=== PATIENT | female | born 1960 | race Caucasian/White ===

== ENCOUNTER 2020-12-30 02:16 | Observation (INO) | payer MEDICAID, SELFPAY ==
[2020-12-30] VITALS (27 sets, daily range): BP systolic 85–142; BP diastolic 41–87; PULSE 64–103; RESP 14–26; TEMP 36.3–36.9; O2SAT 88–100; BMI 26.2; BMI 25.5; BMI 25.6
--- NOTE | 2020-12-30 02:28 | EKG12_ITS ---
Test Reason : SOB Blood Pressure : / mmHG Vent. Rate : 074 BPM Atrial Rate : 074 BPM P-R Int : 170 ms QRS Dur : 080 ms QT Int : 396 ms P-R-T Axes : 072 066 061 degrees QTc Int : 439 ms Normal sinus rhythm Normal ECG Confirmed by DAQUAN SCHOFIELD, [place] ([id number]), editorial assistant VICTOR HUGO BAILEY ([id number]) on 12/30/2020 1:17:01 PM Referred By: DEENA Confirmed By:LA BUTT MD
--- NOTE | 2020-12-30 02:30 | ED.VIS.FLU ---
History of Present Illness Chief Complaint: Shortness of Breath Informant: Patient, EMS Known exposure: No Onset: Days Context: Gradual Onset Quality: Wheezing Associated Symptoms: Clear sputum, Cough Chest Pain: Pleuritic, Pressure, Tightness Narrative: Patient is a 60-year-old female with history of tobacco use presenting with worsening shortness of breath and cough. Patient was 88% on room air per EMS. She was placed on 2 L of oxygen and does feel slightly better. She states she started feeling bad on Wednesday, 2 days ago but then had significant worsening of her symptoms yesterday. She states she has cough, chest tightness and wheezing. She is had production of clear sputum. She denies any fever or chills. She has associated diarrhea. She denies any black or blood in her stool. No associated nausea or vomiting. No abdominal pain. She notes her chest pain is also worse in the front of her chest when she coughs. She denies any radiation of the pain. No reported rash or skin changes. No urinary symptoms but states she has chronic frequency of urination. Patient denies any known history of COPD or asthma. She denies any sick contacts or known exposure to coronavirus. No other complaints at this time. Past Medical History - Allergies and Home Meds Allergies/Adverse Reactions: Allergies No Known Allergies Allergy (Verified 12/30/20 02:20) Past Medical History: - - Hypothyroid Surgical History: noncontributory Smoking Status: Current every day smoker Review of Systems General: Reports: Malaise. Denies: Chills, Fever, Sweats Cardiovascular: Reports: Chest pain. Denies: Palpitations Respiratory: Reports: Dyspnea, Cough, Sputum. Denies: Dyspnea on exertion Gastrointestinal: Reports: Diarrhea. Denies: Abdominal pain, Nausea, Vomiting, Melena, Hematochezia Genitourinary: Denies: Dysuria, Hematuria, Frequency Skin: Denies: Rash Neurological: Denies: Headache, Weakness, Numbness Physical Exam Vital Signs/Narrative: Vital Signs Temp Pulse Resp BP Pulse Ox 12/30/20 02:20 98.1 F 86 23 H 129/87 H 97 12/30/20 02:17 97.3 F L 100 21 H 129/87 H 88 Inital Vital Signs reviewed: Yes General: Well nourished, Well developed Head: Normocephalic, Atraumatic Eyes: Perrl, EOMI ENT: Dry mucous membranes Neck: Supple, Nontender, No JVD Cardiovascular: Regular rate, Regular rhythm, No murmurs Respiratory: Wheezing, Diminished, Decreased Air Movement, - - Patient is conversational dyspnea and increased work of breathing Abdomen: Soft, Nontender, Nondistended, Normal bowel sounds. Negative for: Guarding, Rebound tenderness Back: Nontender, Normal Inspection Extremities: Nontender, No edema Skin: Normal color, No rash Neurological: Alert, Oriented x3, Cranial nerves II-XII grossly intact, Normal Strength, Normal Sensation Psychological: Normal affect Diagnostic/Tx/Re-eval Chest X-Ray - ED: 1 View, Read by ED Physician, Read by Radiologist, Right Infiltrate, Left Infiltrate Clinical Impression(s) from Imaging Studies Chest X-Ray 12/30/20 02:53 IMPRESSION: Possible bilateral pneumonia. Consider correlation with CT chest. Electronically Signed: Juan Manuel Kuo MD at 3:37 EST , Service support , Laboratory Data 12/30/20 12/30/20 12/30/20 02:00 02:00 02:00 WBC 6.7 RBC 5.25 Hgb 16.8 H Hct 50.3 H MCV 95.8 MCH 32.0 MCHC 33.4 RDW Std Deviation 46.3 H RDW Coeff of Stewart 12.9 Plt Count 234 MPV 10.8 Immature Gran % (Auto) 0.300 Neut % (Auto) 53.3 Lymph % (Auto) 29.4 [place] % (Auto) 8.5 Eos % (Auto) 7.8 H Baso % (Auto) 0.7 Absolute Neuts (auto) 3.6 Absolute Lymphs (auto) 1.97 Nucleated RBC % 0 Sodium 141 Potassium 3.8 Chloride 107 Carbon Dioxide 27.0 Anion Gap 7 BUN 7 Creatinine 0.92 Estim Creat Clear Calc 46.13 Est GFR (MDRD) Af Amer 80 Est GFR (MDRD) Non-Af 66 BUN/Creatinine Ratio 7.6 L Glucose 137 H Lactic Acid Calcium 9.2 Total Bilirubin 0.60 AST 25 ALT 28 Alkaline Phosphatase 100 Troponin I < 0.015 B-Natriuretic Peptide 37.4 Total Protein 8.4 H Albumin 4.4 Globulin 4.0 Albumin/Globulin Ratio 1.1 12/30/20 02:26 WBC RBC Hgb Hct MCV MCH MCHC RDW Std Deviation RDW Coeff of Stewart Plt Count MPV Immature Gran % (Auto) Neut % (Auto) Lymph % (Auto) [place] % (Auto) Eos % (Auto) Baso % (Auto) Absolute Neuts (auto) Absolute Lymphs (auto) Nucleated RBC % Sodium Potassium Chloride Carbon Dioxide Anion Gap BUN Creatinine Estim Creat Clear Calc Est GFR (MDRD) Af Amer Est GFR (MDRD) Non-Af BUN/Creatinine Ratio Glucose Lactic Acid 1.3 Calcium Total Bilirubin AST ALT Alkaline Phosphatase Troponin I B-Natriuretic Peptide Total Protein Albumin Globulin Albumin/Globulin Ratio - Rhythm Strip Rhythm Strip: Sinus Rhythm Rate: 74 Ectopy: None - EKG Initial EKG Interpretation: Sinus Rhythm, - - Normal sinus rhythm at a rate of 74 Normal axis Normal intervals Normal ST segments Fluid Bolus: NS Re-Evaluation and Other Treatments: Patient evaluated for worsening shortness of breath and wheezing. She has had symptoms for the past 2 to 3 days also has associated diarrhea. I have a high suspicion for Covid pneumonia versus COPD exacerbation. Patient is given albuterol inhaler, 6 puffs, have improvement of her symptoms. She started on Decadron. Chest x-ray shows multifocal pneumonia. I suspect this is a viral pneumonia. Her Covid antigen is negative however I do have a high suspicion and did order a PCR Covid test as well as a respiratory PCR panel. We will hold antibiotics at this time especially as patient is afebrile and does not have a leukocytosis. Patient was 88% on room air for EMS and is requiring supplemental oxygen. She will require admission. She is agreeable with this plan. Remainder of work-up is largely unremarkable. On reevaluation she is still wheezing slightly but states she does feel better. Clinically her breath sounds have improved. ED Disposition - Plan for ED Patient: Disposition: Acute Care Hospital [facility] Diagnosis: Viral pneumonia, Acute respiratory failure with hypoxia, Wheezing
[2020-12-30] MEDS: 0.9% Normal Saline 1,000 ML 150 ML IV (02:35)
[2020-12-30 02:38] LABS: Absolute Lymphocyte Count 1.97 X10^3/uL (0.83-4.51); Absolute Neutrophil Count 3.6 X10^3/uL (2.0-7.7); Basophil# 0.05 X10^3/uL; Basophil% 0.7 % (0-1); Eosinophil# 0.52 X10^3/uL; Eosinophils% 7.8 % (0-5); Hematocrit 50.3 % (37-47); Hemoglobin 16.8 g/dL (12.0-15.0); Lymphocyte # 1.97 X10^3/ul (4.0); Lymphocyte % 29.4 % (19-41); Mean Corp Hgb Conc 33.4 g/dL (32-36); Mean Corpuscular Volume 95.8 fL (81-99); Mean Platelet Vol. 10.8 fl (6.2-12.0); Monocyte# 0.57 X10^3/uL; Monocyte% 8.5 % (0-10); NRBC Flagged by Analyzer 0 % (0-5); Neutrophil # 3.57 X10^3/uL (2.7-7.7); Neutrophil % 53.3 % (47-70); Platelet Count 234 K/mm3 (150-450); RBC Distribution Width CV 12.9 % (11.6-14.6); RBC Distribution Width SD 46.3 fl (35.1-43.9); Red Blood Count 5.25 M/mm3 (4.2-5.4); White Blood Count 6.7 K/mm3 (4.4-11.0)
[2020-12-30 02:52] LABS: ALB/GLOB Ratio 1.1 RATIO (0.9-2.4); AST(SGOT) 25 U/L (15-37); Alanine Aminotransfer ALT/SGPT 28 U/L (13-56); Albumin, Serum 4.4 g/dL (3.2-5.0); Alkaline Phosphatase 100 U/L (45-117); Anion Gap 7 (5-15); BUN 7 mg/dL (7-18); BUN/Creat Ratio 7.6 RATIO (10-20); Calcium,Total 9.2 mg/dL (8.5-10.1); Chloride 107 mmol/L (98-107); Creatinine, Serum 0.92 mg/dL (0.55-1.02); EST Glomerular Filtration Rate 66 mL/min (>60); Est Glom Filt Rate - Afr Amer 80 mL/min (>60); Estimated Creatinine Clearance 46.13 ml/min; Glucose 137 mg/dL (74-106); Potassium 3.8 mmol/L (3.5-5.1); Protein, Total 8.4 g/dL (6.4-8.2); Sodium Level 141 mmol/L (136-145)
--- NOTE | 2020-12-30 02:53 | RAD_ITS ---
STUDY: X-RAY CHEST REASON FOR EXAM: Female, 60 years old. Increased shortness of breath. TECHNIQUE: AP portable chest. COMPARISON: None. FINDINGS: Subtle patchy bilateral airspace opacities. No effusions. No pneumothorax. Normal size heart. Normal mediastinum and chacorta. Normal visualized pulmonary arteries. Normal visualized aortic arch and descending thoracic aorta. Normal visualized thoracic spine. Normal visualized ribs, clavicles, and shoulders. There is no demonstrated abnormality of the visualized soft tissue structures of the upper abdomen. RAD/Chest 1 View (Portable) IMPRESSION: Possible bilateral pneumonia. Consider correlation with CT chest. Electronically Signed: Juan Manuel Kuo MD at 3:37 EST , Service support ,
[2020-12-30 02:55] LABS: BNP,B-Type NATRIURETIC PEPTIDE 37.4 pg/mL (0-100)
[2020-12-30 03:08] LABS: Lactic Acid 1.3 mmol/L (0.4-1.9)
--- NOTE | 2020-12-30 03:40 | PCM.HP.STD ---
History of Present Illness Date of Admission: 12/30/20 Chief Complaint: Dyspnea, cough. Admission diagnoses: 1. Acute Hypoxia secondary to Acute Bilateral Pneumonia secondary to Suspected Acute Viral Syndrome, COVID-19 2. Possible underlying chronic COPD 3. Tobacco Abuse 4. Hypothyroidism The patient is a 60 y/o F w/ PMHx: Hypothyroidism, Tobacco use who presents to the [facility] ED on 12/30/20 with history of onset of fatigue, malaise this prior Wednesday with significantly worsening symptoms over the last 24 hours with cough, dyspnea, chest tightness with wheezing, wheezing with no specific associated fevers or chills but noted nausea without emesis as well as diarrhea with abdominal cramping in addition to pleuritic chest discomfort, worse with coughing prompting eventual ED presentation. Patient notes that she lives with roommate but he has been reportedly well with no symptoms. Work-up in the ED included T 97.3, heart rate 100, BP 129/87, respiratory rate 23, 88% on room air initially with improvement to 97% on 3 L nasal cannula, CBC with WBC 6.7, hemoglobin 16.8, platelet 234 without marked shift, CMP with glucose 137 otherwise unremarkable, troponin less than 0.015, lactic acid 1.3, BNP 37.4, blood culture x2 pending per ED, Covid rapid antigen negative, EKG with sinus rhythm with no acute evidence of ischemia, chest x-ray concerning for bilateral pneumonia. In the ED patient administered normal saline and albuterol inhaler. Given presentation and history ED physician did order COVID-19 PCR testing as well given concern for Covid but Covid rapid antigen negative. Respiratory viral panel pending per ED physician. Past Medical History Allergies No Known Allergies Allergy (Verified 12/30/20 02:20) Home Medications: Ambulatory Orders Medication Instructions Recorded Levothyroxine [Synthroid] 137 mcg PO DAILY 12/30/20 Surgical History: - - x1, resection of cervical cancer. 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 Tobacco Use: Cigarettes Alcohol: Occasional - Patient reports drinking 1-2 small beers daily. Drugs: None - *Family History Maternal History Items: Cancer - Patient has a paternal family history of lung cancer with concurrent tobacco use. Paternal History Items: Unknown - Patient does not know any of her paternal family history. Review of Systems Constitutional: Reports: Anorexia, Malaise, Weakness, Fatigue. Denies: Chills, Fever, Weight Change HEENT: Denies: Head Aches, Sinus Congestion, Sinus Drainage Cardiovascular: Denies: Chest Pain, Palpitations Respiratory: Reports: Cough, Pleuritic Pain, Shortness of Breath, Shortness of breath at rest, Shortness of breath upon exertion, Wheezing. Denies: Sputum production Gastrointestinal: Reports: Abdominal Pain, Diarrhea, Nausea. Denies: Vomiting Genitourinary: Denies: Dysuria Musculoskeletal: Reports: Joint Pain, Muscle pain. Denies: Joint Tenderness Skin: Denies: Rash, Wounds Neurological: Denies: Numbness, Tingling, Focal weakness Psychiatric: Denies: Anxiety, Depression, Homicidal Ideations, Suicidal Ideations Hematologic/ Lymphatic: Denies: Easy Bruising, Easy Bleeding VTE Information - Inpt Only VTE Present on Admission: No VTE Mechan Device Prophylaxis: SCD's VTE Pharm Prophylaxis ordered?: Yes Subjective: Patient seated upright in the ED bed, fatigued and ill-appearing, anxious. Objective: Physical Examination: General: awake, alert, oriented x 3 and cooperative, seated upright in the ED bed, fatigued, ill-appearing, anxious. Skin: normal color, turgor, no icterus, cyanosis. HEENT: AT/NC, EOMI, PERRLA, dry MM, no carotid bruits or JVD noted. Lungs: Diminished breath sounds, greater bases, moderate effort, no accessory muscle usage noted currently but significant expiratory wheezing, no obvious rhonchi or rales. Heart: Tachycardic with regular rhythm; no gallop, rub audible. Abdomen: soft, NTTP, ND, normal BS, no HSM. Extremities: no cyanosis, clubbing, or edema. Neurological: patient awake, alert, oriented as noted; cognitive function intact; pupils equally reactive to light and accomodation; cranial nerves II-XII grossly normal, moving all 4 extremities, no focal deficits, strength severely global decrease secondary to acute presentation. Psychiatric: affect appears fatigued, ill-appearing, anxious, no acute evidence of depressive feelings. - Physical Exam Vitals/I&O's: Vital Signs Temp Pulse Resp BP Pulse Ox 98.1 F 78 26 H 129/87 H 97 12/30/20 02:20 12/30/20 02:48 12/30/20 02:48 12/30/20 02:20 12/30/20 02:20 Oxygen Flow Rate (L/min) 3 Oxygen Delivery Method Nasal Cannula Weight: 134 lb 0.657 oz Body Mass Index (BMI) 26.2 Microbiology Past 72 Hours 12/30/20 02:31 Mucosa - Nose SARS-CoV-2 Antigen (Rapid) - Final Laboratory Results 12/30/20 02:00: WBC 6.7, RBC 5.25, Hgb 16.8 H, Hct 50.3 H, MCV 95.8, MCH 32.0, MCHC 33.4, RDW Std Deviation 46.3 H, RDW Coeff of Stewart 12.9, Plt Count 234, MPV 10.8, Immature Gran % (Auto) 0.300, Neut % (Auto) 53.3, Lymph % (Auto) 29.4, [place] % (Auto) 8.5, Eos % (Auto) 7.8 H, Baso % (Auto) 0.7, Absolute Neuts (auto) 3.6, Absolute Lymphs (auto) 1.97, Nucleated RBC % 0 12/30/20 02:00: Sodium 141, Potassium 3.8, Chloride 107, Carbon Dioxide 27.0, Anion Gap 7, BUN 7, Creatinine 0.92, Estim Creat Clear Calc 46.13, Est GFR (MDRD) Af Amer 80, Est GFR (MDRD) Non-Af 66, BUN/Creatinine Ratio 7.6 L, Glucose 137 H, Calcium 9.2, Total Bilirubin 0.60, AST 25, ALT 28, Alkaline Phosphatase 100, Troponin I < 0.015, Total Protein 8.4 H, Albumin 4.4, Globulin 4.0, Albumin/Globulin Ratio 1.1 12/30/20 02:00: B-Natriuretic Peptide 37.4 12/30/20 02:26: Lactic Acid 1.3 12/30/20 03:25: COVID-19 (SHARON) Pending Current Medications Sodium Chloride () 1,000 mls @ 150 mls/hr IV .[id number] ONE Stop: 12/30/20 09:07 Last Admin: 12/30/20 02:35 Dose: 150 mls/hr Documented by: Assessment/Plan The patient is a 60 y/o F w/ PMHx: Hypothyroidism, Tobacco use who presents to the [facility] ED on 12/30/20 with history of onset of fatigue, malaise this prior Wednesday with significantly worsening symptoms over the last 24 hours with cough, dyspnea, chest tightness with wheezing, wheezing with no specific associated fevers or chills but noted diarrhea with no nausea or emesis with pleuritic chest discomfort, worse with coughing prompting eventual ED presentation. 1. Acute Hypoxia secondary to Acute Bilateral Pneumonia secondary to Suspected Acute Viral Syndrome, COVID-19: Will admit to the COVID unit, COVID PCR pending with negative antigen but CXR concerning, will maintain on oxygen with wean as tolerated to room air, PRN albuterol, HOB, IS parameters w/ pending sputum cultures, respiratory viral panel and urine antigens, will obtain D-dimer, procalcitonin, CRP, CPK, Ferritin, LDH, trop and BNP, continue supportive care including q 2 hour turning including prone given no prone bed availability and judicious hydration, closely monitor for worsening status for ARDS and multiorgan failure, will consult Infectious disease, will initiate and continue IV decadron x 10 doses, given presentation will also initiate IV remdesivir but defer to discretion of Infectious disease. Given significant wheezing and likely underlying chronic lung disease which is complicating presentation will request also pulmonary, Dr. Ruby. 2. Possible underlying chronic COPD: We will encourage head of bed, I-S, as needed albuterol inhaler, initiate Advair. 3. Tobacco Abuse: Encouraged cessation, inpatient consultation per RT, NR if desired. 4. Hypothyroidism: Continue home synthroid regimen. 5. DVT prophylaxis: SCDs, Lovenox. 6. CODE status: Patient does not have healthcare power of deposit refund clerk nor living will set up. Noted that she may discuss these items with case management/social work if she is interested in having information while here. Given her possible Covid status, discussed CODE status at length including difference between FULL code, DNR-CCA and DNR-CC status. Following discussions about the differences in these status, requested Full Code status. Advanced Care Planning Face to Face Time: 16 minutes. Inpatient E&M: 93067 Init Hosp L3 Procedures: 49001 Advncd Care Plan 30 Min
[2020-12-30] MEDS: dexAMETHasone 4 MG Tablet 6 MG PO (03:52)
[2020-12-30] MEDS: 0.9% Normal Saline 1,000 ML 100 ML IV (05:52)
[2020-12-30 06:25] LABS: Absolute Lymphocyte Count 0.39 X10^3/uL (0.83-4.51); Absolute Neutrophil Count 5.4 X10^3/uL (2.0-7.7); Basophil# 0.03 X10^3/uL; Basophil% 0.5 % (0-1); Eosinophil# 0.02 X10^3/uL; Eosinophils% 0.3 % (0-5); Hematocrit 42.1 % (37-47); Hemoglobin 14.2 g/dL (12.0-15.0); Lymphocyte # 0.39 X10^3/ul (4.0); Lymphocyte % 6.5 % (19-41); Mean Corp Hgb Conc 33.7 g/dL (32-36); Mean Corpuscular Hgb 32.2 pg (27.0-32.0); Mean Corpuscular Volume 95.5 fL (81-99); Mean Platelet Vol. 10.9 fl (6.2-12.0); Monocyte# 0.21 X10^3/uL; Monocyte% 3.5 % (0-10); NRBC Flagged by Analyzer 0 % (0-5); Neutrophil # 5.36 X10^3/uL (2.7-7.7); Neutrophil % 88.9 % (47-70); POSITIVE DIFFERENTIAL YES; Platelet Count 200 K/mm3 (150-450); RBC Distribution Width CV 12.8 % (11.6-14.6); RBC Distribution Width SD 45.4 fl (35.1-43.9); Red Blood Count 4.41 M/mm3 (4.2-5.4)
[2020-12-30 06:26] LABS: Differential Indicated SCAN CRITERIA MET
--- NOTE | 2020-12-30 07:07 | PCM.CONS.PUL ---
Problem List (1) Viral pneumonia Status: Acute (2) Acute respiratory failure with hypoxia Status: Acute (3) Wheezing Status: Acute Reason for Consult Date of Consultation: 12/30/20 Reason for Consultation: Hypoxia History of Present Illness: The patient is a 60 year old F, with unclear past medical history, who presented [facility] on 12/30/2020 secondary to cough and shortness of breath. Patient reportedly had progressive symptoms over the last 2 to 3 days. Patient stated that she had a cough and worsening shortness of breath. Patient had reported production of clear sputum, but denied any fevers or chills. Patient had reported some diarrhea, but no melena or hematochezia. No associated nausea or vomiting was reported. Patient states that she does have a pleuritic type chest pain, especially with coughing. There is no radiation noted. On calling EMS, patient was reportedly 88% on room air, but had denied any sick contacts or known exposure to coronavirus. On presentation to the ER, patient was noted to be 88% on room air and 97% on 3 L. Patient was tachypneic at 23 breaths/min, but afebrile. Chest x-ray had shown bilateral infiltrates and laboratory work-up showed a hemoglobin of 16.8 without leukocytosis or thrombocytopenia. Chemistries were relatively unremarkable. BNP was normal at 37.4. Lactate was within normal limits and EKG showed no ST segment changes. Given concern for possible Covid, patient was admitted to the cohort unit for a PCR and viral panel. Patient eventually became positive for rhinovirus and negative for COVID-19. On further questioning, patient is a very poor historian. Patient states she has no medical problems, but reportedly is on Synthroid at home. Patient also has an extensive 40+ pack year smoking history. 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 Patient has not required an inhaler previously. Patient denies any hospitalization with similar type presentation. Patient does not check her oxygen saturations at baseline. Patient also reports drinking 12-18 beers per week. Patient denies any previous withdrawal symptoms. Patient denied any illicit drugs. 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 No travel is been reported. Patient denies a history of asthma. Patient is unaware of any coronary disease, but readily admits that she does not check with doctors a lot. Review of systems otherwise negative from a constitutional, HEENT, respiratory, cardiovascular, GI, genitourinary, musculoskeletal, skin, neurologic, psychiatric and hematologic system unless stated above. Past Medical History Allergies No Known Allergies Allergy (Verified 12/30/20 02:20) Home Medications: Ambulatory Orders Medication Instructions Recorded Levothyroxine [Synthroid] 137 mcg PO DAILY 12/30/20 Surgical History: - - x1, resection of cervical cancer. 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 Drugs: None - *Family History Maternal History Items: Cancer - Patient has a paternal family history of lung cancer with concurrent tobacco use. Paternal History Items: Unknown - Patient does not know any of her paternal family history. Review of Systems Comment: See HPI. Patient Problems: Active and Suspected Problems Viral pneumonia (Acute) Acute respiratory failure with hypoxia (Acute) Wheezing (Acute) Objective: All imaging was personally reviewed. Chest x-ray shows slight early infiltrates without lobar consolidation. Patient does not have an echocardiogram or chest CT available for review. Patient has never had a pulmonary function test. - Physical Exam Vitals/I&O's: Vital Signs Temp Pulse Resp BP Pulse Ox 36.4 C L 82 20 H 108/54 L 95 12/30/20 04:21 12/30/20 04:21 12/30/20 04:21 12/30/20 04:21 12/30/20 04:21 Oxygen Flow Rate (L/min) 2 Oxygen Delivery Method Nasal Cannula Weight: 59.4 kg Body Mass Index (BMI) 25.5 General: Alert, Oriented x3, Cooperative, - - Mild conversational dyspnea. HEENT: Atraumatic, PERRLA, EOMI, Normocephalic, - - Slight scleral injection without icterus Oral: Moist Mucosa, No Gingival or Mucosal Lesions/ Ulcerations Neck: Supple, No JVD, No Nodes, Trachea Midline Lungs: No rhonchi, No rales, Diminished, Wheezes - Bilateral, - - Symmetric expansion. No dullness to percussion. Cardiovascular: Regular rate, Regular Rhythm, Normal S1, Normal S2, No murmurs, No rub noted, No Gallop Abdomen: Bowel Sounds Present, Soft, Non Tender, Non-Distended, Obese Extremities: No clubbing, No cyanosis, No edema Skin: No rashes, No breakdown Musculoskeletal: No Tenderness to Palpation of Joints or Extremities Lymphatic: No Cervical, Supraclavicular, or Inguinal Adenopathy Neurological: Cranial nerves II-XII grossly intact, Neuro grossly intact, Motor Exam 5/5 strength throughout Psych/Mental Status: Alert and oriented to time, place, person, mood and affect Microbiology Past 72 Hours 12/30/20 03:25 Mucosa - Nose Respiratory Panel (PCR) - Final Rhinovirus 12/30/20 02:31 Mucosa - Nose SARS-CoV-2 Antigen (Rapid) - Final Laboratory Results 12/30/20 02:00: WBC 6.7, RBC 5.25, Hgb 16.8 H, Hct 50.3 H, MCV 95.8, MCH 32.0, MCHC 33.4, RDW Std Deviation 46.3 H, RDW Coeff of Stewart 12.9, Plt Count 234, MPV 10.8, Immature Gran % (Auto) 0.300, Neut % (Auto) 53.3, Lymph % (Auto) 29.4, [place] % (Auto) 8.5, Eos % (Auto) 7.8 H, Baso % (Auto) 0.7, Absolute Neuts (auto) 3.6, Absolute Lymphs (auto) 1.97, Nucleated RBC % 0 12/30/20 02:00: Sodium 141, Potassium 3.8, Chloride 107, Carbon Dioxide 27.0, Anion Gap 7, BUN 7, Creatinine 0.92, Estim Creat Clear Calc 46.13, Est GFR (MDRD) Af Amer 80, Est GFR (MDRD) Non-Af 66, BUN/Creatinine Ratio 7.6 L, Glucose 137 H, Calcium 9.2, Total Bilirubin 0.60, AST 25, ALT 28, Alkaline Phosphatase 100, Troponin I < 0.015, Total Protein 8.4 H, Albumin 4.4, Globulin 4.0, Albumin/Globulin Ratio 1.1 12/30/20 02:00: B-Natriuretic Peptide 37.4 12/30/20 02:26: Lactic Acid 1.3 12/30/20 03:25: COVID-19 (SHARON) Not Detected 12/30/20 05:55: WBC 6.0, RBC 4.41, Hgb 14.2, Hct 42.1, MCV 95.5, MCH 32.2 H, MCHC 33.7, RDW Std Deviation 45.4 H, RDW Coeff of Stewart 12.8, Plt Count 200, MPV 10.9, Immature Gran % (Auto) 0.300, Neut % (Auto) 88.9 H, Lymph % (Auto) 6.5 L, [place] % (Auto) 3.5, Eos % (Auto) 0.3, Baso % (Auto) 0.5, Absolute Neuts (auto) 5.4, Absolute Lymphs (auto) 0.39 L, Nucleated RBC % 0 12/30/20 05:55: Sodium Cancelled, Potassium Cancelled, Chloride Cancelled, Carbon Dioxide Cancelled, Anion Gap Cancelled, BUN Cancelled, Creatinine Cancelled, Estim Creat Clear Calc Cancelled, Est GFR (MDRD) Af Amer Cancelled, Est GFR (MDRD) Non-Af Cancelled, BUN/Creatinine Ratio Cancelled, Glucose Cancelled, Calcium Cancelled, Magnesium Cancelled, Ferritin Cancelled, Total Bilirubin Cancelled, AST Cancelled, ALT Cancelled, Alkaline Phosphatase Cancelled, Lactate Dehydrogenase Cancelled, C-React Prot Ext Range Cancelled, Total Protein Cancelled, Albumin Cancelled, Globulin Cancelled, Albumin/Globulin Ratio Cancelled 12/30/20 05:55: Procalcitonin Cancelled Current Medications Acetaminophen (Acetaminophen 325 Mg Tablet) 650 mg PO Q6H PRN PRN PRN Reason: Pain Score 1-10/Temp > 100.7 F Al Hydroxide/Mg Hydroxide (Mag Hydrox/Al Hydrox/Simeth 30 Ml Udc) 30 ml PO Q6H PRN PRN PRN Reason: Gastric Burning Albuterol Sulfate (Albuterol 2.5 Mg/3 Ml Vial.Neb.) 2.5 mg INHALATION Q6HWA.RT REY Albuterol Sulfate (Albuterol 2.5 Mg/3 Ml Vial.Neb.) 2.5 mg INHALATION Q4H PRN PRN PRN Reason: Wheezing Enoxaparin Sodium (Enoxaparin 30 Mg/0.3 Ml Syringe) 30 mg SC BID REY Famotidine (Famotidine 20 Mg Tablet) 20 mg PO BID REY Guaifenesin (Guaifenesin 10 Ml Udc (200mg/10ml)) 20 ml PO Q4H PRN PRN PRN Reason: COUGH Hydralazine HCl (Hydralazine 20 Mg/Ml Vial) 10 mg IV Q4H PRN PRN PRN Reason: SBP > 160 Sodium Chloride () 1,000 mls @ 150 mls/hr IV .[id number] ONE Stop: 12/30/20 09:07 Last Admin: 12/30/20 02:35 Dose: 150 mls/hr Documented by: Sodium Chloride () 1,000 mls @ 100 mls/hr IV .Q10H REY Stop: 12/30/20 15:14 Last Admin: 12/30/20 05:52 Dose: 100 mls/hr Documented by: Sodium Chloride () 250 mls @ 15 mls/hr IV .[id number] PRN PRN Reason: Saline Flush Sodium Chloride () 250 mls @ 15 mls/hr IV .[id number] PRN PRN Reason: Additional IVPB Infusion Influenza Virus Vaccine Quadrival (Influenza Vaccine (6mos+)/Pf 0.5 Ml Syringe) 0.5 ml IM .ONCE ONE Stop: 12/30/20 10:01 Levothyroxine Sodium (Levothyroxine 137 Mcg Tablet) 137 mcg PO DAILY@0600 [facility]END[facility] S[facility] TO [facility] Melatonin (Melatonin 3 Mg Tablet) 3 mg PO QHS PRN PRN PRN Reason: INSOMNIA Nitroglycerin (Nitroglycerin (Inpatient Use) 0.4 Mg Tab.Subl) 0.4 mg SUBLINGUAL Q5M PRN PRN Reason: CARDIAC/CHEST PAIN Ondansetron HCl (Ondansetron 4 Mg/2 Ml Vial) 4 mg IV Q8H PRN PRN PRN Reason: NAUSEA/VOMITING Prednisone (Prednisone 20 Mg Tablet) 40 mg PO DAILY@0800 [facility]END[facility] TO [facility] Prochlorperazine Edisylate (Prochlorperazine 10 Mg/2 Ml Vial) 5 mg IV Q4H PRN PRN PRN Reason: Breakthrough nausea/vomiting Sodium Chloride (0.9% Saline Lock 10 Ml Syringe) 10 - 40 ml IV UD PRN PRN Reason: SALINE FLUSH Throat Lozenges (Benzocaine/Menthol 1 Lozenge) 1 lozenge MUCOUS MEM Q2H PRN PRN PRN Reason: SORE THROAT Clinical Impression(s) from Imaging Studies Chest X-Ray 12/30/20 02:53 IMPRESSION: Possible bilateral pneumonia. Consider correlation with CT chest. Electronically Signed: Juan Manuel Kuo MD at 3:37 EST , Service support , Assessment/Plan All Active Problems Viral pneumonia (Acute) Acute respiratory failure with hypoxia (Acute) Wheezing (Acute) RECOMMENDATIONS: 1. Discontinue remdesivir and Decadron 2. Transition to bronchodilators, prednisone and mucolytic 3. Wean oxygen as tolerated 4. Okay to leave the cohort unit from my perspective 5. Will need outpatient complete pulmonary function test 6. Walking oximetry prior to discharge IMPRESSIONS: 1. Acute hypoxic respiratory insufficiency secondary to probable COPD exacerbation secondary to rhinovirus Patient with an extensive smoking history, but does not formally have a diagnosis of COPD. Patient does have extensive wheezing, but symptoms are comparable with rhinovirus. Patient has had a negative antigen and PCR for Covid, so likely okay to discontinue precautions. Transition to prednisone, bronchodilators and mucolytic. Patient will need a pulmonary function test for quantification clarification of lung function as an outpatient and a walking oximetry prior to discharge. Patient does have an elevated hemoglobin, which may indicate protracted hypoxic state. Cannot exclude the need for supplemental oxygen on discharge with ambulation. 2. Tobacco abuse/hypothyroidism/poor historian/chronic alcohol use Complicates care, management, recovery and prognosis. Can offer nicotine patch if necessary. Should watch for alcohol withdrawal symptomatology. We'll hold off on a CIWA protocol for now. Inpatient E&M: 27515 Init Hosp L3
[2020-12-30] MEDS: Levothyroxine 137 MCG Tablet PO (07:08)
[2020-12-30 07:37] LABS: D-Dimer Quantitative (DVT/PE) 0.38 FEU/ug/m (0.27-0.49)
[2020-12-30 07:37] LABS: AST(SGOT) 20 U/L (15-37); Alanine Aminotransfer ALT/SGPT 23 U/L (13-56); Albumin, Serum 3.8 g/dL (3.2-5.0); Alkaline Phosphatase 91 U/L (45-117); Anion Gap 6 (5-15); BUN 6 mg/dL (7-18); BUN/Creat Ratio 6.7 RATIO (10-20); Calcium,Total 8.7 mg/dL (8.5-10.1); Chloride 111 mmol/L (98-107); EST Glomerular Filtration Rate 68 mL/min (>60); Est Glom Filt Rate - Afr Amer 82 mL/min (>60); Estimated Creatinine Clearance 47.15 ml/min; Ferritin 102 ng/mL (8-252); Globulin 3.7 g/dL (2.2-4.2); Glucose 179 mg/dL (74-106); LDH 174 U/L (84-246); Magnesium 2.2 mg/dL (1.6-2.6); Potassium 3.4 mmol/L (3.5-5.1); Protein, Total 7.5 g/dL (6.4-8.2); Sodium Level 142 mmol/L (136-145)
[2020-12-30 08:45] LABS: Procalcitonin 0.05 ng/mL (0.00-0.09)
--- NOTE | 2020-12-30 09:53 | CASEMGMT ---
RN CM Assessment Note Introduced role of CM to patient to via phone. Demographics, PCP verified. Pt is awake and alert and able to participate in assessment. Pt states she lives with S.O.. No care needs. She works and is independent. Presentation: shortness of breath Diagnosis: Bilateral Pneumonia- suspected COVID 19 PCP: Dr. Huseyin Deleon Specialists: none Insurance: self Pay-verified with patient she does not have medical coverage. Preferred [facility]acy: [facility] Prescription Benefit: yes LNOK: Friend Slade Waggoner Living Arrangements: Lives independently, no care needs identified. Tranportation: drives DME: none. discussed options for oxygen if needed on dc as pt is self -pay. [facility] currently has lowest cost out of pocket. Pt is hoping to dc without oxygen if possible. RN DON will follow and assist with ordering through [facility] if needed. Jane FARRIS HHC: none SNF: none Patient DC Goals: DC Plan: Home on discharge. Recommend home oxygen testing at rest and with exertion if needed. CM available for discharge planning coordination. Contact CM for any concerns/needs that may arise. Jane FARRIS
[2020-12-30] MEDS: predniSONE 20 MG Tablet 40 MG PO (10:20)
[2020-12-30] MEDS: Famotidine 20 MG Tablet PO ×2 (10:20→21:52)
[2020-12-30] MEDS: Lactated Ringers 1,000 ML 999 ML IV ×2 (10:21→12:37)
[2020-12-30] MEDS: Enoxaparin 40 MG/0.4 ML Syringe SC (10:28)
[2020-12-30] MEDS: Albuterol 2.5 MG/3 ML VIAL.NEB. INHALATION ×4 (12:12→23:45)
--- NOTE | 2020-12-30 13:24 | PCM.PN.HOSP ---
Patient Problems: Active and Suspected Problems Viral pneumonia (Acute) Acute respiratory failure with hypoxia (Acute) Wheezing (Acute) Reason for Visit: rhinovirus Subjective: breathing better. Vitals/I&O's: Vital Signs Temp Pulse Resp BP Pulse Ox 36.8 C 92 18 87/46 L 95 12/30/20 12:00 12/30/20 12:12 12/30/20 12:12 12/30/20 12:00 12/30/20 12:12 Oxygen Flow Rate (L/min) 2 Oxygen Delivery Method Nasal Cannula Weight: 59.4 kg Body Mass Index (BMI) 25.5 Intake and Output for Last 24 Hours 12/28/20 12/29/20 12/30/20 23:59 23:59 23:59 Intake Total 2327.50 / 2327.50 Balance 2327.50 / 2327.50 General: Alert, No apparent distress HEENT: Atraumatic, Normocephalic Oral: Moist Mucosa, No Gingival or Mucosal Lesions/ Ulcerations Neck: No Nodes, Thyroid Normal Size and Texture Lungs: Diminished, Wheezes Cardiovascular: Regular rate, Regular Rhythm, Normal S1, Normal S2, No murmurs Abdomen: Bowel Sounds Present, Soft, Non Tender, Non-Distended, No Hepato-splenomegaly Extremities: No edema, No Calf Tenderness Skin: No rashes, No breakdown Musculoskeletal: No Tenderness to Palpation of Joints or Extremities, No Muscle Wasting Psych/Mental Status: Normal Affect, Appropriate Microbiology Past 72 Hours 12/30/20 12:00 Urine, Clean Catch Legionella Antigen - Final 12/30/20 12:00 Urine, Clean Catch Streptococcus pneumoniae Antigen (M - Final 12/30/20 03:25 Mucosa - Nose Respiratory Panel (PCR) - Final Rhinovirus 12/30/20 02:31 Mucosa - Nose SARS-CoV-2 Antigen (Rapid) - Final Laboratory Results 12/30/20 02:00: WBC 6.7, RBC 5.25, Hgb 16.8 H, Hct 50.3 H, MCV 95.8, MCH 32.0, MCHC 33.4, RDW Std Deviation 46.3 H, RDW Coeff of Stewart 12.9, Plt Count 234, MPV 10.8, Immature Gran % (Auto) 0.300, Neut % (Auto) 53.3, Lymph % (Auto) 29.4, [place] % (Auto) 8.5, Eos % (Auto) 7.8 H, Baso % (Auto) 0.7, Absolute Neuts (auto) 3.6, Absolute Lymphs (auto) 1.97, Nucleated RBC % 0 12/30/20 02:00: Sodium 141, Potassium 3.8, Chloride 107, Carbon Dioxide 27.0, Anion Gap 7, BUN 7, Creatinine 0.92, Estim Creat Clear Calc 46.13, Est GFR (MDRD) Af Amer 80, Est GFR (MDRD) Non-Af 66, BUN/Creatinine Ratio 7.6 L, Glucose 137 H, Calcium 9.2, Total Bilirubin 0.60, AST 25, ALT 28, Alkaline Phosphatase 100, Troponin I < 0.015, Total Protein 8.4 H, Albumin 4.4, Globulin 4.0, Albumin/Globulin Ratio 1.1 12/30/20 02:00: B-Natriuretic Peptide 37.4 12/30/20 02:00: D-Dimer Quant (PE/DVT) 0.38 12/30/20 02:26: Lactic Acid 1.3 12/30/20 03:25: COVID-19 (SHARON) Not Detected 12/30/20 05:55: WBC 6.0, RBC 4.41, Hgb 14.2, Hct 42.1, MCV 95.5, MCH 32.2 H, MCHC 33.7, RDW Std Deviation 45.4 H, RDW Coeff of Stewart 12.8, Plt Count 200, MPV 10.9, Immature Gran % (Auto) 0.300, Neut % (Auto) 88.9 H, Lymph % (Auto) 6.5 L, [place] % (Auto) 3.5, Eos % (Auto) 0.3, Baso % (Auto) 0.5, Absolute Neuts (auto) 5.4, Absolute Lymphs (auto) 0.39 L, Nucleated RBC % 0 12/30/20 05:55: Sodium Cancelled, Potassium Cancelled, Chloride Cancelled, Carbon Dioxide Cancelled, Anion Gap Cancelled, BUN Cancelled, Creatinine Cancelled, Estim Creat Clear Calc Cancelled, Est GFR (MDRD) Af Amer Cancelled, Est GFR (MDRD) Non-Af Cancelled, BUN/Creatinine Ratio Cancelled, Glucose Cancelled, Calcium Cancelled, Magnesium Cancelled, Ferritin Cancelled, Total Bilirubin Cancelled, AST Cancelled, ALT Cancelled, Alkaline Phosphatase Cancelled, Lactate Dehydrogenase Cancelled, C-React Prot Ext Range Cancelled, Total Protein Cancelled, Albumin Cancelled, Globulin Cancelled, Albumin/Globulin Ratio Cancelled 12/30/20 05:55: Procalcitonin Cancelled 12/30/20 07:00: Procalcitonin 0.05 12/30/20 07:00: Sodium 142, Potassium 3.4 L, Chloride 111 H, Carbon Dioxide 25.0, Anion Gap 6, BUN 6 L, Creatinine 0.90, Estim Creat Clear Calc 47.15, Est GFR (MDRD) Af Amer 82, Est GFR (MDRD) Non-Af 68, BUN/Creatinine Ratio 6.7 L, Glucose 179 H, Calcium 8.7, Magnesium 2.2, Ferritin 102, Total Bilirubin 0.40, AST 20, ALT 23, Alkaline Phosphatase 91, Lactate Dehydrogenase 174, C-React Prot Ext Range 12.90 H, Total Protein 7.5, Albumin 3.8, Globulin 3.7, Albumin/Globulin Ratio 1.0 Current Medications Acetaminophen (Acetaminophen 325 Mg Tablet) 650 mg PO Q6H PRN PRN PRN Reason: Pain Score 1-10/Temp > 100.7 F Al Hydroxide/Mg Hydroxide (Mag Hydrox/Al Hydrox/Simeth 30 Ml Udc) 30 ml PO Q6H PRN PRN PRN Reason: Gastric Burning Albuterol Sulfate (Albuterol 2.5 Mg/3 Ml Vial.Neb.) 2.5 mg INHALATION Q6HWA.RT REY Albuterol Sulfate (Albuterol 2.5 Mg/3 Ml Vial.Neb.) 2.5 mg INHALATION Q4H PRN PRN PRN Reason: Wheezing Last Admin: 12/30/20 12:12 Dose: 2.5 mg Documented by: Enoxaparin Sodium (Enoxaparin 40 Mg/0.4 Ml Syringe) 40 mg SC DAILY [facility] Last Admin: 12/30/20 10:28 Dose: 40 mg Documented by: Famotidine (Famotidine 20 Mg Tablet) 20 mg PO BID [facility] Last Admin: 12/30/20 10:20 Dose: 20 mg Documented by: Guaifenesin (Guaifenesin 10 Ml Udc (200mg/10ml)) 20 ml PO Q4H PRN PRN PRN Reason: COUGH Hydralazine HCl (Hydralazine 20 Mg/Ml Vial) 10 mg IV Q4H PRN PRN PRN Reason: SBP > 160 Sodium Chloride () 1,000 mls @ 100 mls/hr IV .Q10H [facility] Stop: 12/30/20 15:14 Last Infusion: 12/30/20 12:37 Dose: 0 mls/hr Documented by: Sodium Chloride () 250 mls @ 15 mls/hr IV .[id number] PRN PRN Reason: Saline Flush Sodium Chloride () 250 mls @ 15 mls/hr IV .[id number] PRN PRN Reason: Additional IVPB Infusion Lactated Ringer's () 1,000 mls @ 999 mls/hr IV .Q1H1M [facility] Stop: 12/30/20 13:30 Last Admin: 12/30/20 12:37 Dose: 999 mls/hr Documented by: Influenza Virus Vaccine Quadrival (Influenza Vaccine (6mos+)/Pf 0.5 Ml Syringe) 0.5 ml IM .ONCE ONE Stop: 12/31/20 10:01 Levothyroxine Sodium (Levothyroxine 137 Mcg Tablet) 137 mcg PO DAILY@0600 [facility] Last Admin: 12/30/20 07:08 Dose: 137 mcg Documented by: Melatonin (Melatonin 3 Mg Tablet) 3 mg PO QHS PRN PRN PRN Reason: INSOMNIA Nitroglycerin (Nitroglycerin (Inpatient Use) 0.4 Mg Tab.Subl) 0.4 mg SUBLINGUAL Q5M PRN PRN Reason: CARDIAC/CHEST PAIN Ondansetron HCl (Ondansetron 4 Mg/2 Ml Vial) 4 mg IV Q8H PRN PRN PRN Reason: NAUSEA/VOMITING Prednisone (Prednisone 20 Mg Tablet) 40 mg PO DAILY@0800 [facility] Last Admin: 12/30/20 10:20 Dose: 40 mg Documented by: Prochlorperazine Edisylate (Prochlorperazine 10 Mg/2 Ml Vial) 5 mg IV Q4H PRN PRN PRN Reason: Breakthrough nausea/vomiting Sodium Chloride (0.9% Saline Lock 10 Ml Syringe) 10 - 40 ml IV UD PRN PRN Reason: SALINE FLUSH Throat Lozenges (Benzocaine/Menthol 1 Lozenge) 1 lozenge MUCOUS MEM Q2H PRN PRN PRN Reason: SORE THROAT STROKE Vital Signs/Narrative: Vital Signs Temp Pulse Resp BP BP Pulse Ox 12/30/20 12:12 92 18 95 12/30/20 12:00 36.8 C 77 17 87/46 L 98 12/30/20 11:00 82 89/45 L 12/30/20 10:42 103 H 94/59 L 12/30/20 10:00 36.7 C 81 14 85/46 L 98 Medical Necessity - Tobacco Use Smoking Status: Current every day smoker Tobacco Use: Cigarettes Assessment/Plan All Active Problems Viral pneumonia (Acute) Acute respiratory failure with hypoxia (Acute) Wheezing (Acute) 1. acute hypoxic respiratory insufficiency: failure ruled out. 2/2 AECOPD and rhinovirus. COVID rapid and PCR negative. Wean oxygen as tolerated. 2. AECOPD: BD and prednisone. likely exacerbated by rhinovirus 3. rhinovirus: supportive mgmt. DC COVID isolation. 4. hypotension: IVF. monitor. 5. VTE prophylaxis: LMWH. Inpatient E&M: 18262 Subs Hosp L2
--- NOTE | 2020-12-30 14:37 | CASEMGMT ---
SW met briefly w/pt in room, provided resources to pt including [facility] assist, prescription assistance programs, food [place], [employer], [employer], and a Medicaid application. Pt states she usually can afford her meds as they cost $4. 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 SW explained to pt when she gets the bill there will be information to fill out to see if she will qualify for financial assistance. Pt states understanding. SW remains available should any additional needs arise. DAMIAN Young
[2020-12-31] VITALS (10 sets, daily range): BP systolic 91–113; BP diastolic 47–59; PULSE 67–89; RESP 16–18; TEMP 36.7–36.9; O2SAT 84–96
[2020-12-31 05:23] LABS: Absolute Lymphocyte Count 1.64 X10^3/uL (0.83-4.51); Absolute Neutrophil Count 9.4 X10^3/uL (2.0-7.7); Basophil# 0.02 X10^3/uL; Basophil% 0.2 % (0-1); Hematocrit 37.5 % (37-47); Hemoglobin 12.2 g/dL (12.0-15.0); Lymphocyte # 1.64 X10^3/ul (4.0); Lymphocyte % 13.5 % (19-41); Mean Corp Hgb Conc 32.5 g/dL (32-36); Mean Corpuscular Hgb 31.5 pg (27.0-32.0); Mean Corpuscular Volume 96.9 fL (81-99); Mean Platelet Vol. 10.1 fl (6.2-12.0); Monocyte# 1.05 X10^3/uL; Monocyte% 8.6 % (0-10); NRBC Flagged by Analyzer 0 % (0-5); Neutrophil # 9.42 X10^3/uL (2.7-7.7); Neutrophil % 77.3 % (47-70); Platelet Count 204 K/mm3 (150-450); RBC Distribution Width CV 13.7 % (11.6-14.6); RBC Distribution Width SD 49.1 fl (35.1-43.9); Red Blood Count 3.87 M/mm3 (4.2-5.4); White Blood Count 12.2 K/mm3 (4.4-11.0)
[2020-12-31] MEDS: guaiFENesin 10 ML UDC (200MG/10ML) 20 ML PO (05:38)
[2020-12-31] MEDS: Levothyroxine 137 MCG Tablet PO (05:43)
[2020-12-31 05:50] LABS: Anion Gap 6 (5-15); BUN 7 mg/dL (7-18); BUN/Creat Ratio 10.8 RATIO (10-20); Calcium,Total 8.6 mg/dL (8.5-10.1); Chloride 112 mmol/L (98-107); Creatinine, Serum 0.65 mg/dL (0.55-1.02); EST Glomerular Filtration Rate 99 mL/min (>60); Est Glom Filt Rate - Afr Amer 119 mL/min (>60); Estimated Creatinine Clearance 65.28 ml/min; Glucose 76 mg/dL (74-106); Potassium 3.6 mmol/L (3.5-5.1); Sodium Level 145 mmol/L (136-145)
[2020-12-31] MEDS: Albuterol 2.5 MG/3 ML VIAL.NEB. INHALATION ×2 (06:00→11:30)
--- NOTE | 2020-12-31 06:40 | PN_ITS ---
Patient Problems: Active and Suspected Problems Viral pneumonia (Acute) Acute respiratory failure with hypoxia (Acute) Wheezing (Acute) Subjective: Patient did okay overnight. Patient states she improved through the day yesterday, but feels pretty bad this morning with waking. Patient's blood pressures have been lower, but acceptable. Patient continues to have wheeze and a cough productive of thick secretions. - Physical Exam Vitals/I&O's: Vital Signs Temp Pulse Resp BP Pulse Ox 36.8 C 89 18 97/47 L 96 12/31/20 03:44 12/31/20 06:00 12/31/20 06:00 12/31/20 03:44 12/31/20 06:04 Oxygen Flow Rate (L/min) 2 Oxygen Delivery Method Nasal Cannula Weight: 59.9 kg Body Mass Index (BMI) 25.5 Intake and Output for Last 24 Hours 12/29/20 12/30/20 12/31/20 23:59 23:59 23:59 Intake Total 4412.50 / 4412.50 0 / 0 Balance 4412.50 / 4412.50 0 / 0 General: Alert, Oriented x3, Cooperative, - - Mild to moderate conversational dyspnea. Appears older than stated age. HEENT: Atraumatic, PERRLA, EOMI, Normocephalic, - - Scleral injection improving Oral: Moist Mucosa, No Gingival or Mucosal Lesions/ Ulcerations Neck: Supple, No JVD, No Nodes, Trachea Midline Lungs: No rhonchi, No rales, Diminished, Wheezes Cardiovascular: Regular rate, Regular Rhythm, Normal S1, Normal S2, No murmurs, No rub noted, No Gallop Abdomen: Bowel Sounds Present, Soft, Non Tender, Non-Distended Extremities: No clubbing, No cyanosis, No edema Skin: No rashes, No breakdown Musculoskeletal: No Tenderness to Palpation of Joints or Extremities Lymphatic: No Cervical, Supraclavicular, or Inguinal Adenopathy Neurological: Cranial nerves II-XII grossly intact, Neuro grossly intact, Motor Exam 5/5 strength throughout Psych/Mental Status: Alert and oriented to time, place, person, mood and affect Microbiology Past 72 Hours 12/30/20 12:00 Urine, Clean Catch Legionella Antigen - Final 12/30/20 12:00 Urine, Clean Catch Streptococcus pneumoniae Antigen (M - Final 12/30/20 03:25 Mucosa - Nose Respiratory Panel (PCR) - Final Rhinovirus 12/30/20 02:31 Mucosa - Nose SARS-CoV-2 Antigen (Rapid) - Final Laboratory Results 12/30/20 02:00: D-Dimer Quant (PE/DVT) 0.38 12/30/20 05:55: Sodium Cancelled, Potassium Cancelled, Chloride Cancelled, Carbon Dioxide Cancelled, Anion Gap Cancelled, BUN Cancelled, Creatinine Cancelled, Estim Creat Clear Calc Cancelled, Est GFR (MDRD) Af Amer Cancelled, Est GFR (MDRD) Non-Af Cancelled, BUN/Creatinine Ratio Cancelled, Glucose Cancelled, Calcium Cancelled, Magnesium Cancelled, Ferritin Cancelled, Total Bilirubin Cancelled, AST Cancelled, ALT Cancelled, Alkaline Phosphatase Cancelled, Lactate Dehydrogenase Cancelled, C-React Prot Ext Range Cancelled, Total Protein Cancelled, Albumin Cancelled, Globulin Cancelled, Albumin/Globulin Ratio Cancelled 12/30/20 05:55: Procalcitonin Cancelled 12/30/20 07:00: Procalcitonin 0.05 12/30/20 07:00: Sodium 142, Potassium 3.4 L, Chloride 111 H, Carbon Dioxide 25.0, Anion Gap 6, BUN 6 L, Creatinine 0.90, Estim Creat Clear Calc 47.15, Est GFR (MDRD) Af Amer 82, Est GFR (MDRD) Non-Af 68, BUN/Creatinine Ratio 6.7 L, Glucose 179 H, Calcium 8.7, Magnesium 2.2, Ferritin 102, Total Bilirubin 0.40, AST 20, ALT 23, Alkaline Phosphatase 91, Lactate Dehydrogenase 174, C-React Prot Ext Range 12.90 H, Total Protein 7.5, Albumin 3.8, Globulin 3.7, Albumin/Globulin Ratio 1.0 12/31/20 05:18: WBC 12.2 H, RBC 3.87 L, Hgb 12.2, Hct 37.5, MCV 96.9, MCH 31.5, MCHC 32.5, RDW Std Deviation 49.1 H, RDW Coeff of Stewart 13.7, Plt Count 204, MPV 10.1, Immature Gran % (Auto) 0.400, Neut % (Auto) 77.3 H, Lymph % (Auto) 13.5 L, [place] % (Auto) 8.6, Eos % (Auto) 0.0, Baso % (Auto) 0.2, Absolute Neuts (auto) 9.4 H, Absolute Lymphs (auto) 1.64, Nucleated RBC % 0 12/31/20 05:18: Sodium 145, Potassium 3.6, Chloride 112 H, Carbon Dioxide 27.0, Anion Gap 6, BUN 7, Creatinine 0.65, Estim Creat Clear Calc 65.28, Est GFR (MDRD) Af Amer 119, Est GFR (MDRD) Non-Af 99, BUN/Creatinine Ratio 10.8, Glucose 76, Calcium 8.6 Current Medications Acetaminophen (Acetaminophen 325 Mg Tablet) 650 mg PO Q6H PRN PRN PRN Reason: Pain Score 1-10/Temp > 100.7 F Al Hydroxide/Mg Hydroxide (Mag Hydrox/Al Hydrox/Simeth 30 Ml Udc) 30 ml PO Q6H PRN PRN PRN Reason: Gastric Burning Albuterol Sulfate (Albuterol 2.5 Mg/3 Ml Vial.Neb.) 2.5 mg INHALATION Q6HWA.RT [facility] Last Admin: 12/31/20 06:00 Dose: 2.5 mg Documented by: Albuterol Sulfate (Albuterol 2.5 Mg/3 Ml Vial.Neb.) 2.5 mg INHALATION Q4H PRN PRN PRN Reason: Wheezing Last Admin: 12/30/20 12:12 Dose: 2.5 mg Documented by: Enoxaparin Sodium (Enoxaparin 40 Mg/0.4 Ml Syringe) 40 mg SC DAILY [facility] Last Admin: 12/30/20 10:28 Dose: 40 mg Documented by: Famotidine (Famotidine 20 Mg Tablet) 20 mg PO BID [facility] Last Admin: 12/30/20 21:52 Dose: 20 mg Documented by: Guaifenesin (Guaifenesin 10 Ml Udc (200mg/10ml)) 20 ml PO Q4H PRN PRN PRN Reason: COUGH Last Admin: 12/31/20 05:38 Dose: 20 ml Documented by: Hydralazine HCl (Hydralazine 20 Mg/Ml Vial) 10 mg IV Q4H PRN PRN PRN Reason: SBP > 160 Sodium Chloride () 250 mls @ 15 mls/hr IV .[id number] PRN PRN Reason: Saline Flush Sodium Chloride () 250 mls @ 15 mls/hr IV .[id number] PRN PRN Reason: Additional IVPB Infusion Influenza Virus Vaccine Quadrival (Influenza Vaccine (6mos+)/Pf 0.5 Ml Syringe) 0.5 ml IM .ONCE ONE Stop: 12/31/20 10:01 Levothyroxine Sodium (Levothyroxine 137 Mcg Tablet) 137 mcg PO DAILY@0600 [facility] Last Admin: 12/31/20 05:43 Dose: 137 mcg Documented by: Melatonin (Melatonin 3 Mg Tablet) 3 mg PO QHS PRN PRN PRN Reason: INSOMNIA Nitroglycerin (Nitroglycerin (Inpatient Use) 0.4 Mg Tab.Subl) 0.4 mg SUBLINGUAL Q5M PRN PRN Reason: CARDIAC/CHEST PAIN Ondansetron HCl (Ondansetron 4 Mg/2 Ml Vial) 4 mg IV Q8H PRN PRN PRN Reason: NAUSEA/VOMITING Prednisone (Prednisone 20 Mg Tablet) 40 mg PO DAILY@0800 [facility] Last Admin: 12/30/20 10:20 Dose: 40 mg Documented by: Prochlorperazine Edisylate (Prochlorperazine 10 Mg/2 Ml Vial) 5 mg IV Q4H PRN PRN PRN Reason: Breakthrough nausea/vomiting Sodium Chloride (0.9% Saline Lock 10 Ml Syringe) 10 - 40 ml IV UD PRN PRN Reason: SALINE FLUSH Throat Lozenges (Benzocaine/Menthol 1 Lozenge) 1 lozenge MUCOUS MEM Q2H PRN PRN PRN Reason: SORE THROAT Medical Necessity - Tobacco Use Smoking Status: Current every day smoker Tobacco Use: Cigarettes Assessment/Plan All Active Problems Viral pneumonia (Acute) Acute respiratory failure with hypoxia (Acute) Wheezing (Acute) RECOMMENDATIONS: 1. Continue current dose of prednisone for now 2. Continue bronchodilators, prednisone and mucolytic 3. Wean oxygen as tolerated 4. Increase activity as tolerated 5. Will need outpatient complete pulmonary function test 6. Walking oximetry prior to discharge IMPRESSIONS: 1. Acute hypoxic respiratory insufficiency secondary to probable COPD exacerbation secondary to rhinovirus Clinical suspicion for worsening this morning secondary to the recruitment associated with sleeping in the setting of viral pneumonia. Patient appears to be doing okay from an oxygenation standpoint. Patient may be able to be weaned off of oxygen later today, but will need a walking oximetry prior to any discharge planning. Outpatient pulmonary function test for quantification clarification of lung function will be necessary. Patient does not appear to be significantly volume overloaded to require Lasix at this time. 2. Tobacco abuse/hypothyroidism/poor historian/chronic alcohol use Complicates care, management, recovery and prognosis. Can offer nicotine patch if necessary. Should watch for alcohol withdrawal symptomatology. We'll hold off on a CIWA protocol for now. Inpatient E&M: 69295 Subs Hosp L2
--- NOTE | 2020-12-31 07:14 | PCS.PANDOC ---
PANDEMIC DOCUMENTATION INITIATED: Date: 12/30/20 Time: 1500
[2020-12-31] MEDS: Enoxaparin 40 MG/0.4 ML Syringe SC (09:12)
[2020-12-31] MEDS: predniSONE 20 MG Tablet 40 MG PO (09:12)
[2020-12-31] MEDS: Famotidine 20 MG Tablet PO (09:12)
--- NOTE | 2020-12-31 10:05 | CASEMGMT ---
Addendum entered by Angela Ybarra 12/31/20 14:24: Call from [facility] and they state they have been trying to reach pt on her cell and it goes to [employer]. Lalo transferred into pt room at this time and then per Meg KILLIAN, pt's daughter is headed home to get pt's credit card so that home oxygen can be set up. CM to follow. Ron KILLIAN CM Original Note: Per Meg KILLIAN, pt qualifies for 2L with exertion at this time. Pt had previously agreed to [facility] for home oxygen as per Jane KILLIAN CM, they are the lowest out of pocket veras at this time at $145 for concentrator and portable tanks. This RN CM to room to discuss with pt at this time and pt states she will be able to cover this but does not have her wallet with her at this time. Call to [facility] to update on all, voice understanding. Pt states no further questions/concerns/needs at this time. CM to follow. Ron KILLIAN CM
--- NOTE | 2020-12-31 14:28 | PCM.DC ---
- Discharge Diagnoses Current Active Problems: Current Active and Chronic Problems Viral pneumonia (Acute) Acute respiratory failure with hypoxia (Acute) Wheezing (Acute) You will use the following diet at home:: No restrictions Your food should be the consistency of: Regular Additional Instructions: Oxygen 2 L with activity. Allergies/Adverse Reactions: Allergies No Known Allergies Allergy (Verified 12/30/20 02:20) Medications to take at Discharge Levothyroxine [Synthroid] 137 mcg PO DAILY 12/30/20 Albuterol Inhaler [Ventolin Hfa] 1 - 2 puff INHALATION Q4H PRN PRN #1 inhaler 12/31/20 Guaifenesin [Mucinex] 600 mg PO BID #10 tab.er.12h 12/31/20 predniSONE tablet 2 tab PO DAILY@0800 #6 tab 12/31/20 The following prescriptions were given: Guaifenesin [Mucinex] 600 mg PO BID #10 tab.er.12h Transmission Status: Pending to [facility] predniSONE tablet 2 tab PO DAILY@0800 #6 tab Transmission Status: Pending to [facility] Albuterol Inhaler [Ventolin Hfa] 1 - 2 puff INHALATION Q4H PRN PRN #1 inhaler PRN Reason: Shortness Of Breath Transmission Status: Pending to [facility] Primary Care Physician: Huseyin Deleon MD [Primary Care Provider] - Within 2 Weeks Test Results: Test results from this visit will be discussed in further detail at your follow-up appointment, if applicable. Please Follow Up With: Gini Paiz NP, [employer] - Pulmonology When: 2-4 weeks Proposed Discharge Date: 12/31/20
--- NOTE | 2020-12-31 14:29 | PCM.DC.SUM ---
Discharge Date and Diagnosis - Problem List Patient Problems: Active and Suspected Problems Viral pneumonia (Acute) Acute respiratory failure with hypoxia (Acute) Wheezing (Acute) Date of Admission: 12/30/20 Date of Discharge: 12/31/20 - Primary Discharge Diagnosis Acute Problems: Active Problems Viral pneumonia (Acute) Acute respiratory failure with hypoxia (Acute) Wheezing (Acute) Hospital Course and Treatment Imaging Results: Clinical Impression(s) from Imaging Studies Chest X-Ray 12/30/20 02:53 IMPRESSION: Possible bilateral pneumonia. Consider correlation with CT chest. Electronically Signed: Juan Manuel Kuo MD at 3:37 EST , Service support , [facility]ung pulmonology Operations: None Procedures: None Summary of Care Provided: The patient is a 60 year old F presents with shortness of breath. Patient additionally had fatigue and malaise. Gotten worse over the past 24 hours prior to arrival. Patient was checked for COVID-19 with a rapid and PCR, both of which were negative. Patient did, however, come back positive for rhinovirus. Chest x-ray report noted bilateral pneumonias but on my evaluation I do not appreciate any pneumonia. Patient did have low very large airways concerning for underlying COPD. Patient was started on steroids. Patient overall has done well though still requiring oxygen. Patient will require oxygen 2 L with activity, at rest patient is 92% on room air. Patient advised to follow-up with pulmonology for further pulmonary function test states he does have underlying COPD or asthma. Patient will be discharged with 40 mg of prednisone for 3 more days complete a 5-day course plus Mucinex and albuterol metered-dose inhaler. [] Patient Problems: Active and Suspected Problems Viral pneumonia (Acute) Acute respiratory failure with hypoxia (Acute) Wheezing (Acute) - Physical Exam Vitals/I&O's: Vital Signs Temp Pulse Resp BP Pulse Ox 36.9 C 82 16 91/59 L 93 12/31/20 09:10 12/31/20 11:30 12/31/20 11:30 12/31/20 09:10 12/31/20 11:30 Oxygen Flow Rate (L/min) [ 2 AMBULATION with Oxygen] Oxygen Flow Rate (L/min) 1 Oxygen Delivery Method Nasal Cannula Weight: 59.9 kg Body Mass Index (BMI) 25.5 Intake and Output for Last 24 Hours 12/29/20 12/30/20 12/31/20 23:59 23:59 23:59 Intake Total 4412.50 / 4412.50 360 / 360 Balance 4412.50 / 4412.50 360 / 360 General: Alert, No apparent distress HEENT: Atraumatic, Normocephalic Oral: Moist Mucosa, No Gingival or Mucosal Lesions/ Ulcerations Lungs: Clear to auscultation, Normal air movement, No rhonchi, No wheeze, No rales Cardiovascular: Regular rate, Regular Rhythm, Normal S1, Normal S2, No murmurs Abdomen: Bowel Sounds Present, Soft, Non Tender, Non-Distended, No Hepato-splenomegaly Extremities: No edema, No Calf Tenderness Microbiology Past 72 Hours 12/30/20 12:00 Sputum, Expectorated/Coughed Gram Stain - Final 12/30/20 12:00 Sputum, Expectorated/Coughed Respiratory Culture - Preliminary Appears to be normal respiratory bharti. Further studies to follow. 12/30/20 12:00 Urine, Clean Catch Legionella Antigen - Final 12/30/20 12:00 Urine, Clean Catch Streptococcus pneumoniae Antigen (M - Final 12/30/20 03:25 Mucosa - Nose Respiratory Panel (PCR) - Final Rhinovirus 12/30/20 02:31 Mucosa - Nose SARS-CoV-2 Antigen (Rapid) - Final Laboratory Results 12/31/20 05:18: WBC 12.2 H, RBC 3.87 L, Hgb 12.2, Hct 37.5, MCV 96.9, MCH 31.5, MCHC 32.5, RDW Std Deviation 49.1 H, RDW Coeff of Stewart 13.7, Plt Count 204, MPV 10.1, Immature Gran % (Auto) 0.400, Neut % (Auto) 77.3 H, Lymph % (Auto) 13.5 L, [place] % (Auto) 8.6, Eos % (Auto) 0.0, Baso % (Auto) 0.2, Absolute Neuts (auto) 9.4 H, Absolute Lymphs (auto) 1.64, Nucleated RBC % 0 12/31/20 05:18: Sodium 145, Potassium 3.6, Chloride 112 H, Carbon Dioxide 27.0, Anion Gap 6, BUN 7, Creatinine 0.65, Estim Creat Clear Calc 65.28, Est GFR (MDRD) Af Amer 119, Est GFR (MDRD) Non-Af 99, BUN/Creatinine Ratio 10.8, Glucose 76, Calcium 8.6 Current Medications Acetaminophen (Acetaminophen 325 Mg Tablet) 650 mg PO Q6H PRN PRN PRN Reason: Pain Score 1-10/Temp > 100.7 F Al Hydroxide/Mg Hydroxide (Mag Hydrox/Al Hydrox/Simeth 30 Ml Udc) 30 ml PO Q6H PRN PRN PRN Reason: Gastric Burning Albuterol Sulfate (Albuterol 2.5 Mg/3 Ml Vial.Neb.) 2.5 mg INHALATION Q6HWA.RT [facility] Last Admin: 12/31/20 11:30 Dose: 2.5 mg Documented by: Albuterol Sulfate (Albuterol 2.5 Mg/3 Ml Vial.Neb.) 2.5 mg INHALATION Q4H PRN PRN PRN Reason: Wheezing Last Admin: 12/30/20 12:12 Dose: 2.5 mg Documented by: Enoxaparin Sodium (Enoxaparin 40 Mg/0.4 Ml Syringe) 40 mg SC DAILY [facility] Last Admin: 12/31/20 09:12 Dose: 40 mg Documented by: Famotidine (Famotidine 20 Mg Tablet) 20 mg PO BID [facility] Last Admin: 12/31/20 09:12 Dose: 20 mg Documented by: Guaifenesin (Guaifenesin 10 Ml Udc (200mg/10ml)) 20 ml PO Q4H PRN PRN PRN Reason: COUGH Last Admin: 12/31/20 05:38 Dose: 20 ml Documented by: Hydralazine HCl (Hydralazine 20 Mg/Ml Vial) 10 mg IV Q4H PRN PRN PRN Reason: SBP > 160 Sodium Chloride () 250 mls @ 15 mls/hr IV .[id number] PRN PRN Reason: Saline Flush Sodium Chloride () 250 mls @ 15 mls/hr IV .[id number] PRN PRN Reason: Additional IVPB Infusion Levothyroxine Sodium (Levothyroxine 137 Mcg Tablet) 137 mcg PO DAILY@0600 [facility] Last Admin: 12/31/20 05:43 Dose: 137 mcg Documented by: Melatonin (Melatonin 3 Mg Tablet) 3 mg PO QHS PRN PRN PRN Reason: INSOMNIA Nitroglycerin (Nitroglycerin (Inpatient Use) 0.4 Mg Tab.Subl) 0.4 mg SUBLINGUAL Q5M PRN PRN Reason: CARDIAC/CHEST PAIN Ondansetron HCl (Ondansetron 4 Mg/2 Ml Vial) 4 mg IV Q8H PRN PRN PRN Reason: NAUSEA/VOMITING Prednisone (Prednisone 20 Mg Tablet) 40 mg PO DAILY@0800 [facility] Last Admin: 12/31/20 09:12 Dose: 40 mg Documented by: Prochlorperazine Edisylate (Prochlorperazine 10 Mg/2 Ml Vial) 5 mg IV Q4H PRN PRN PRN Reason: Breakthrough nausea/vomiting Sodium Chloride (0.9% Saline Lock 10 Ml Syringe) 10 - 40 ml IV UD PRN PRN Reason: SALINE FLUSH Throat Lozenges (Benzocaine/Menthol 1 Lozenge) 1 lozenge MUCOUS MEM Q2H PRN PRN PRN Reason: SORE THROAT Discharge Diet: No Restrictions Home Medications: Medications to take at Discharge Levothyroxine [Synthroid] 137 mcg PO DAILY 12/30/20 Albuterol Inhaler [Ventolin Hfa] 1 - 2 puff INHALATION Q4H PRN PRN #1 inhaler 12/31/20 Guaifenesin [Mucinex] 600 mg PO BID #10 tab.er.12h 12/31/20 predniSONE tablet 2 tab PO DAILY@0800 #6 tab 12/31/20 Following Prescriptions Were Given to Patient: Guaifenesin [Mucinex] 600 mg PO BID #10 tab.er.12h Transmission Status: Pending to [facility] predniSONE tablet 2 tab PO DAILY@0800 #6 tab Transmission Status: Pending to [facility] Albuterol Inhaler [Ventolin Hfa] 1 - 2 puff INHALATION Q4H PRN PRN #1 inhaler PRN Reason: Shortness Of Breath Transmission Status: Pending to [facility] Primary Care Physician: Huseyin Deleon MD [Primary Care Provider] - Within 2 Weeks Please Follow Up With: Gini Paiz NP, [employer] [facility]-C - Pulmonology When: 2-4 weeks Disposition: Home Minutes spent on discharge:: 28 Patient Condition:: Good Medical Necessity - Tobacco Use Smoking Status: Current every day smoker Tobacco Use: Cigarettes Meaningful Use Info Meaningful Use Diagnoses (Choose all that apply): None applicable Inpatient E&M: 12765 Disch Hosp
--- NOTE | 2020-12-31 14:44 | CASEMGMT ---
SW spoke with patient regarding discharge medications. She said she should be fine paying for them. She wants them filled at [facility] which is where they were sent. SW asked patient about her insurance that starts in January. She said they are not holding her job. She became tearful. SW provided emotional support. Alison DENNIS
--- NOTE | 2020-12-31 15:22 | PHA.DC.MC ---
Pharmacy Service has performed discharge medication reconciliation and counseling for this patient. 1. ALBUTEROL INHALER 1-2 PUFFS Q4H PRN SOB 2. GUAIFENESIN 600MG PO BID 3. PREDNISONE 40MG PO DAILYCM X 3 DAYS The patient's discharge medication list was reviewed for discrepancies and discrepancies were resolved. Home Medications Levothyroxine [Synthroid] 137 mcg PO DAILY 12/30/20 Albuterol Inhaler [Ventolin Hfa] 1 - 2 puff INHALATION Q4H PRN PRN #1 inhaler 12/31/20 Guaifenesin [Mucinex] 600 mg PO BID #10 tab.er.12h 12/31/20 predniSONE tablet 2 tab PO DAILY@0800 #6 tab 12/31/20 The patient was counseled on the following discharge medications and changes in medications for homegoing were reviewed. The Reason for Use, instructions for use, and potential side effects were reviewed for all new medications. The patient's questions regarding all of their medications were answered. The patient was able to verbally demonstrate an understanding of their discharge medications.
--- OUTSIDE RECORDS SUMMARY | 2025-11-06 18:45 | XMS RPT_ITS | CCD ---
Author Organization [facility] CliniSyvt Care Team Providers Care Camp Counselor Name Role Phone Jennifer Kulkarni MD Primary Care Provider Dr. Jennifer Kulkarni Primary Care Provider [phone] Dr. Vinh Ruby Attending Provider Dr. Vinh Ruby Referring Provider Jennifer Kulkarni MD Primary Care Provider Jennifer Kulkarni MD Primary Care Provider Jennifer Kulkarni MD Primary Care Provider Dr. Jennifer Kulkarni Primary Care Provider [phone] Dr. Jennifer Kulkarni Referring Provider Izabel WEBMETHODS CONSULTANT, WEBMETHODS CONSULTANT-C Gini Attending Provider Dr. Jennifer Kulkarni Primary Care Provider [phone] Dr. Jennifer Kulkarni Referring Provider MOE Lazo Attending Provider Jennifer Kulkarni MD Primary Care Provider [phone] Malia FINGERER.Meg BAE Unavailable Efrain FINGERER.STAGE SETTING PAINTER APPRENTICE, Johnathan Unavailable [phone] Jennifer Kulkarni MD Primary Care Provider Izabel WEBMETHODS CONSULTANT-C, Gini Attending Provider Izabel WEBMETHODS CONSULTANT-C, Gini Referring Provider Izabel WEBMETHODS CONSULTANT-C, Gini Other Provider Dr. Parminder Jackson DO Attending Provider Paiz, Gini Referring Unavailable Paiz, Gini Attending Unavailable Elderzeldack, Jennifer Primary Care Unavailable Elderbrock, Jennifer Primary Care Unavailable Paiz, Gini Referring Unavailable Paiz, Gini Attending Unavailable Elderbrock, Jennifer Primary Care Unavailable Paiz, Gini Attending Unavailable Elderbrock, Jennifer Referring Unavailable Paiz, Gini Referring Unavailable Elderbrock, Jennifer Primary Care Unavailable Parminder Jackson Attending Unavailable Paiz, Gini Referring Unavailable Elderbrock, Jennifer Primary Care Unavailable Paiz, Gini Consulting Unavailable Parminder Jackson Attending Unavailable Izabel, Gini Attending Unavailable Elderbrock, Jennifer Referring Unavailable Elderbrock, Jennifer Primary Care Unavailable Elderbrock, Jennifer Primary Care Unavailable Elderbrock, Jennifer Referring Unavailable Paiz, Gini Attending Unavailable Paiz, Gini Referring Unavailable Paiz, Gini Attending Unavailable Elderbrock, Jennifer Primary Care Unavailable ELDERBROCK, JENNIFER D Primary Care Unavailable ELDERBROCK, JENNIFER D Attending Unavailable ELDERBROCK, JENNIFER D Primary Care Unavailable DONOVAN ROMEO Attending Unavailable ELDERMALKA, JENNIFER Olmos Primary Care Unavailable DONOVAN ROMEO Referring Unavailable CHRISTOPHER SUH Attending Unavailable ELDERMALKA, JENNIFER Olmos Primary Care Unavailable ELDERBROCK, JENNIFER Olmos Referring Unavailable ELDERBROCK, JENNIFER Olmos Primary Care Unavailable ELDERBROCK, JENNIFER Olmos Attending Unavailable ELDERZELDACK, JENNIFER Olmos Primary Care Unavailable ELDERBROCK, JENNIFER Olmos Primary Care Unavailable ELDERBROCK, JENNIFER Olmos Referring Unavailable Medications Current Medications Medication Drug Class(es) Dates Sig (Normalized) Sig (Original) amoxicillin 875 mg / clavulanate 125 mg oral tablet (1 source) Penicillin-class Antibacterial Start: 07-27-2025 End: 08-01-2025 take 1 tablet by mouth twice daily amoxicillin-clavu lanate potassium (AUGMENTIN) 875-125 mg per tablet Indications: Bacterial sinusitis Take 1 tablet by mouth two times a day for 5 days. 10 tablet 07/27/2025 08/01/2025 Active busPIRone hydrochloride 5 mg oral tablet (3 sources) Start: 08-10-2022 End: 09-09-2022 take 1 tablet by mouth three times daily busPIRone (BUSPAR) 5 mg tablet Indications: Anxiety with depression Take 1 tablet by mouth three times daily. 90 tablet 5 08/10/2022 09/09/2022 Active Comment on above: Take 1 tablet by liz th three times daily. doxycycline hyclate 100 mg oral tablet (7 sources) Tetracycline-class Drug Start: 08-02-2025 End: 08-09-2025 take 1 tablet by mouth twice daily doxycycline (VIBRA-TABS) 100 mg tablet Indications: Bacterial sinusitis Take 1 tablet by mouth two times a day for 7 days. 14 tablet 08/02/2025 08/09/2025 Active Start: 09-08-2023 End: 09-15-2023 take 1 tablet by mouth twice daily doxycycline (VIBRA-TABS) 100 mg tablet Take 1 tablet by mouth two times a day for 7 days. 14 tablet 0 09/08/2023 09/15/2023 Active Start: 04-21-2023 End: 08-03-2023 take 1 capsule by mouth twice daily Doxycycline Monohydrate 100 mg capsule Discontinued 100 mg PO TWICE A DAY April 21, 2023 12:00am August 03, 2023 6:42am Comment on above: Take 1 tablet by liz th two times a day for 7 days. levothyroxine sodium 0.112 mg oral tablet (20 sources) l-Thyroxine Start: 04-02-20 End: 06-18-20 take 1 tablet by mouth once daily for thyroid dysfunction levothyroxine (SYNTHROID) 112 mcg tablet Indications: Hypothyroidism, unspecified type Take 1 tablet by mouth once daily. Take on empty stomach. For thyroid 30 tablet 2 06/18/2025 Active Start: 12-31-2022 End: 04-02-2023 take 1 tablet by mouth once daily for thyroid dysfunction levothyroxine (SYNTHROID) 125 mcg tablet Indications: Hypothyroidism, unspecified type Take 1 tablet by mouth once daily. Take on empty stomach. For Thyroid 30 tablet 5 12/31/2022 04/02/2023 Discontinued Start: 08-12-2022 End: 12-31-2022 take 1 tablet by mouth once daily for thyroid dysfunction levothyroxine (SYNTHROID) 112 mcg tablet Indications: Hypothyroidism, unspecified type Take 1 tablet by mouth once daily. Take on empty stomach. For thyroid 30 tablet 11 08/12/2022 12/31/2022 Discontinued Start: 12-30-2020 End: 02-25-2024 take 1 tablet by mouth once daily Levothyroxine 137 MCG tablet Discontinued 137 ug PO DAILY December 30, 2020 1:00am February 25, 2024 9:19am Comment on above: Take 1 tablet by liz th daily before breakfast. Take 1 tablet by liz th once daily. Take on empty stomach. For thyroid LORazepam 0.5 mg oral tablet (6 sources) Benzodiazepine Start: 2 take 1 tablet by mouth three times daily as needed for anxiety Lorazepam (Ativan) 0.5 mg tablet Active 0.5 mg PO THREE TIMES A DAY as needed for anxiety August 08, 2022 12:00am Mometasone-Formote rol (Dulera) 200-5 mcg/actuation HFA aerosol inhaler (6 sources) Start: 4 Mometasone-Formoter ol (Dulera) 200-5 mcg/actuation HFA aerosol inhaler Active 2 NMA INHALATION TWICE A DAY April 25, 2024 1:14pm Start: 03-07-2024 End: 04-25-2024 Mometasone-Formoterol (Duler a) 200-5 mcg/actuation HFA aerosol inhaler Discontinued 2 NMA INHALATION TWICE A DAY March 07, 2024 12:00am April 25, 2024 1:14pm montelukast 10 mg oral tablet (20 sources) Leukotriene Receptor Antagonist Start: 02-18-2021 End: 09-19-2024 montelukast (SINGULAIR) 10 mg tablet EVERY EVENING 02/18/2021 Active Comment on above: EVERY EVENING predniSONE 20 mg oral tablet (12 sources) Start: 07-27-2025 End: 08-01-2025 take 2 tablets by mouth once daily predniSONE (DELTASONE) 20 mg tablet Indications: Bacterial sinusitis Take 2 tablets by mouth once daily for 5 days. 10 tablet 07/27/2025 08/01/2025 Active Start: 09-08-2023 End: 09-13-2023 take 4 tablets by mouth once daily predniSONE (DELTASONE) 10 mg tablet Take 4 tablets by mouth once daily for 5 days. 20 tablet 0 09/08/2023 09/13/2023 Active Start: 04-21-2023 End: 08-03-2023 take 3 tablets by mouth once daily Prednisone 20 mg tablet Discontinued 60 mg PO DAILY April 21, 2023 12:00am August 03, 2023 6:42am Start: 04-21-2023 End: 08-03-2023 take 60 mg by mouth once daily Prednisone Discontinued 60 MG PO DAILY April 21, 2023 12:00am August 03, 2023 6:42am Start: 12-31-2020 End: 01-13-2021 Prednisone 20 MG tablet Disc ontinued 2 {tbl} PO DAILY@0800 December 31, 2020 1:00am January 13, 2021 11:52am Start: 12-31-2020 End: 01-13-2021 take 2 tablets by mouth once daily Prednisone Discontinued 2 TABLET PO DAILY@0800 December 31, 2020 1:00am January 13, 2021 11:52am Comment on above: Take 4 tablets by [facility] once daily for 5 days. TRELEGY ELLIPTA 200-62.5-25 mcg inhalation powder (4 sources) Start: 07-17-2025 take 1 puff(s) by inhalation once daily TRELEGY ELLIPTA 200-62.5-25 mcg inhalation powder Inhale 1 puff as instructed once daily. 07/17/2025 Active Completed/Discontinued Medications Medication Drug Class(es) Dates Sig (Normalized) Sig (Original) [id number] 200 actuat albuterol 0.09 mg/actuat metered dose inhaler (20 sources) beta2-Adrenergic Agonist Start: 12-31-2020 End: 02-08-2023 Albuterol Sulfate 90 mcg/actuation HFA aerosol inhaler Discontinued 1 - 2 NMA INHALATION EVERY 4 HOURS NEEDED as needed for Shortness Of Breath January 13, 2021 12:34pm February 08, 2023 8:07am Start: 12-31-2020 End: 02-08-2023 take 1 puff(s) by inhalation every four hours as needed Albuterol Sulfate Discontinued 1 - 2 PUFF INHALATION EVERY 4 HOURS NEEDED January 13, 2021 12:34pm February 08, 2023 8:07am ALBUTEROL INHALA TION Inhale as instructed. Active ALBUTEROL INHALA TION Inhale as instructed. 0 Active Comment on above: Inhale as instructed . Budesonide-Formoterol (20 sources) Corticosteroid, beta2-Adrenergic Agonist Start: 11-04-2023 End: 02-25-2024 Budesonide-Formoterol (Symbicort) 160-4.5 mcg/actuation HFA aerosol inhaler Discontinued 2 NMA INHALATION TWICE A DAY 1 November 04, 2023 11:26am February 25, 2024 9:28am administer with spacer, rinse mouth after each use Start: 11-04-2023 take 1 puff(s) by [facility] twice daily Budesonide-Formoterol (Symbicort) 160-4.5 mcg/actuation HFA aerosol inhaler Active 2 PUFF INHALATION TWICE A DAY 1 November 04, 2023 11:26am administer with spacer, rinse mouth after each use Start: 01-11-2023 End: 11-04-2023 Budesonide-Formoterol (Symbi maddison) 160-4.5 mcg/actuation HFA aerosol inhaler Discontinued 2 NMA INHALATION TWICE A DAY 1 January 11, 2023 2:28pm November 04, 2023 11:26am administer with spacer, rinse mouth after each use Start: 01-11-2023 End: 11-04-2023 take 1 puff(s) by mouth twice daily Budesonide-Formoterol (Symbicort) 160-4.5 mcg/actuation HFA aerosol inhaler Discontinued 2 PUFF INHALATION TWICE A DAY 1 January 11, 2023 2:28pm November 04, 2023 11:26am administer with spacer, rinse mouth after each use Start: 01-11-2023 take 1 puff(s) by [facility] twice daily Budesonide-Formoterol (Symbicort) 160-4.5 mcg/actuation HFA aerosol inhaler Active 2 PUFF INHALATION TWICE A DAY 1 January 11, 2023 2:28pm administer with spacer, rinse mouth after each use Start: 04-22-2022 End: 01-11-2023 Budesonide-Formoterol (Symbi maddison) 160-4.5 mcg/actuation HFA aerosol inhaler Discontinued 2 NMA INHALATION TWICE A DAY April 22, 2022 1:54pm January 11, 2023 2:28pm administer with spacer, rinse mouth after each use Start: 04-22-2022 End: 01-11-2023 take 1 puff(s) by mouth twice daily Budesonide-Formoterol (Symbicort) 160-4.5 mcg/actuation HFA aerosol inhaler Discontinued 2 PUFF INHALATION TWICE A DAY April 22, 2022 1:54pm January 11, 2023 2:28pm administer with spacer, rinse mouth after each use Start: 04-22-2022 take 1 puff(s) by mo ut twice daily Budesonide-Formoterol (Symbicort) 160-4.5 mcg/actuation HFA aerosol inhaler Active 2 PUFF INHALATION TWICE A DAY April 22, 2022 1:54pm administer with spacer, rinse mouth after each use Start: 11-24-2021 End: 07-04-2024 take 2 puff(s) by mouth twice daily SYMBICORT 160-4.5 mcg/actuation inhaler INHALE 2 PUFFS BY MOUTH TWICE DAILY. RINSE MOUTH AFTER USE 11/24/2021 07/04/2024 Discontinued (Discontinued by another Health Care Provider) Start: 07-23-2021 End: 04-22-2022 Budesonide-Formoterol (Symbi maddison) 160-4.5 mcg/actuation HFA aerosol inhaler Discontinued 2 NMA INHALATION TWICE A DAY July 23, 2021 7:13am April 22, 2022 1:54pm administer with spacer, rinse mouth after each use Start: 07-23-2021 End: 04-22-2022 take 1 puff(s) by mouth twice daily Budesonide-Formoterol (Symbicort) 160-4.5 mcg/actuation HFA aerosol inhaler Discontinued 2 PUFF INHALATION TWICE A DAY July 23, 2021 7:13am April 22, 2022 1:54pm administer with spacer, rinse mouth after each use Start: 02-18-2021 End: 07-23-2021 Budesonide-Formoterol (Symbi maddison) 160-4.5 mcg/actuation HFA aerosol inhaler Discontinued 2 NMA INHALATION TWICE A DAY February 18, 2021 12:00am July 23, 2021 7:15am administer with spacer, rinse mouth after each use Start: 02-18-2021 End: 07-23-2021 take 1 puff(s) by mouth twice daily Budesonide-Formoterol (Symbicort) 160-4.5 mcg/actuation HFA aerosol inhaler Discontinued 2 PUFF INHALATION TWICE A DAY February 18, 2021 12:00am July 23, 2021 7:15am administer with spacer, rinse mouth after each use Comment on above: INHALE 2 PUFFS BY MO [facility] TWICE DAILY. RINSE MOUTH AFTER USE Budesonide-Glycopyr- Formoterol (3 sources) Corticosteroid, beta2-Adrenergic Agonist Start: End: Budesonide-Glycopyr -Formoterol (Breztri Aerosphere) 160-9-4.8 mcg/actuation HFA aerosol inhaler Discontinued 2 NMA INHALATION TWICE A DAY 10.7 February 25, 2024 12:00am June 13, 2024 8:14am 60 actuat formoterol fumarate 0.005 mg/actuat / mometasone furoate 0.2 mg/actuat metered dose inhaler (8 sources) Corticosteroid, beta2-Adrenergic Agonist Start: End: take 2 puff(s) by inhalation twice daily DULERA 200-5 mcg/actuation inhaler Inhale 2 Puffs as instructed two times a day. 06/26/2024 08/02/2025 Discontinued 12 hr guaiFENesin 600 mg extended release oral tablet (6 sources) Start: End: take 1 tablet by mouth twice daily Guaifenesin 600 MG tablet extended release 12hr Discontinued 600 mg PO TWICE A DAY 10 December 31, 2020 1:00am January 13, 2021 11:52am PARoxetine hydrochloride 10 mg oral tablet (4 sources) Serotonin Reuptake Inhibitor Start: End: take 1 tablet by mouth once daily PARoxetine (PAXIL) 10 mg tablet Indications: Anxiety with depression Take 1 tablet by mouth once daily. 30 tablet 5 08/10/2022 10/07/2022 Discontinued Comment on above: Take 1 tablet by liz once daily. 10 actuat tiotropium 0.0025 mg/actuat inhalation spray (11 sources) Anticholinergic Start: End: take 2 puff(s) by inhalation once daily SPIRIVA RESPIMAT 2.5 mcg/actuation inhaler Inhale 2 Puffs as instructed once daily. 06/16/2024 08/02/2025 Discontinued Start: 06-16-2024 take 2.5 ug by inhal ation once daily Tiotropium Boring (Spiriva Respimat) 2.5 mcg/actuation mist Active 2 NMA INHALATION daily June 16, 2024 12:00am administer at approximately the same time(s) each day Problems Active Problems Problem Classification Problem Date Documented Da te Episodic/Chronic Adjustment disorders (20 sources) Adjustment disorder with depressed mood; Translations: [Adjustment disorder with depressed mood] Onset: 08-25-2005 08-25-2005 Chronic Anxiety disorders (8 sources) Anxiety; Translations: [Generalized anxiety disorder] Onset: 08-23-2025 Chronic Asthma (6 sources) Asthma; Translations: [Unspecified asthma, uncomplicated] 07-23-2021 Chronic Bacterial infection; unspecified site (1 source) Other specified bacterial agents as the cause of diseases classified elsewhere; Translations: [Bacterial sinusitis] Onset: 07-27-2025 Episodic Cancer of cervix (6 sources) Malignant tumor of cervix; Translations: [Malignant neoplasm of cervix uteri, unspecified] 01-20-2021 Chronic Cardiac dysrhythmias (1 source) Tachycardia; Translations: [Tachycardia, unspecified] Episodic Chronic obstructive pulmonary disease and bronchiectasis (19 sources) Asthma-chronic obstructive pulmonary disease overlap syndrome; Translations: [Chronic obstructive pulmonary disease, unspecified] Onset: 03-19-2025 Chronic Disorders of lipid metabolism (2 sources) Hyperlipidemia; Translations: [Hyperlipidemia, unspecified] Onset: 08-17-2025 02-19-2025 Chronic Genitourinary symptoms and ill-defined conditions (20 sources) Urinary incontinence; Translations: [Unspecified urinary incontinence] Onset: 10-01-2007 10-01-2007 Chronic Immunizations and screening for infectious disease (1 source) Encounter for immunization; Translations: [Encounter for immunization] Onset: 08-23-2025 Episodic Mood disorders (20 sources) Depressive disorder; Translations: [Other specified depressive episodes] Onset: 03-12-2010 03-12-2010 Chronic Other hereditary and degenerative nervous system conditions (1 source) Essential tremor; Translations: [Essential tremor] Onset: 08-23-2025 Chronic Other lower respiratory disease (6 sources) Dyspnea; Translations: [Shortness of breath] 01-13-2021 Episodic Other lower respiratory disease (6 sources) Wheezing; Translations: [Wheezing] 01-13-2021 Episodic Other lower respiratory disease (2 sources) Cough; Translations: [Acute cough] 09-08-2023 Episodic Other lower respiratory disease (2 sources) Cough; Translations: [Acute cough] 07-27-2025 Episodic Other nervous system disorders (20 sources) Carpal tunnel syndrome; Translations: [Carpal tunnel syndrome, unspecified upper limb] Onset: 03-12-2010 03-12-2010 Chronic Other nervous system disorders (1 source) Tremor; Translations: [Tremor, unspecified] Episodic Other nutritional; endocrine; and metabolic disorders (6 sources) Gibqx-9-lhruazfjwxn deficiency; Translations: [Mjubf-9-yuynhpjoir n deficiency] 03-19-2021 Chronic Comment on above: Genotype M/I, True V alue 117 Other screening for suspected conditions (not mental disorders or infectious disease) (7 sources) Patient encounter status; Translations: [Encounter for screening mammogram for malignant neoplasm of breast] Onset: 02-28-2025 Episodic Other upper respiratory infections (3 sources) Bacterial sinusitis; Translations: [Chronic sinusitis, unspecified] Onset: 07-27-2025 07-27-2025 Chronic Pneumonia (except that caused by tuberculosis or sexually transmitted disease) (6 sources) Viral pneumonia; Translations: [Viral pneumonia, unspecified] 01-13-2021 Episodic Residual codes; unclassified (6 sources) History finding; Translations: [Other specified health status] 01-20-2021 Episodic Residual codes; unclassified (1 source) Tobacco user; Translations: [Tobacco use] 07-06-2024 Episodic Respiratory failure; insufficiency; arrest (adult) (6 sources) Acute respiratory failure; Translations: [Acute respiratory failure with hypoxia] 02-18-2021 Episodic Substance-related disorders (12 sources) Cigarette smoker ; Translations: [Nicotine dependence, cigarettes, uncomplicated] Onset: 08-23-2025 Chronic Comment on above: LDCT ordered for Jan Syncope (12 sources) Near syncope; Translations: [Syncope and collapse] 08-16-2022 Episodic Thyroid disorders (20 sources) Hypothyroidism; Translations: [Hypothyroidism, unspecified] Onset: 02-10-2013 02-10-2013 Chronic Thyroid disorders (6 sources) Disorder of thyroid gland; Translations: [Disorder of thyroid, unspecified] 01-20-2021 Episodic Unclassified (1 source) Acute cough; Translations: [Acute cough] Onset: 07-27-2025 Past or Other Problems Problem Classification Problem Date Documented Da te Episodic/Chronic Spondylosis; intervertebral disc disorders; other back problems (20 sources) Low back pain; Translations: [Lumbago] Onset: 08-12-2007 08-12-2007 Episodic Unclassified (1 source) Patient encounter status 07-10-2025 Results Test Name Value Interpretation Reference Range Facility OV 08-23-2025 CNOV Office Visit (FAMPWS ) ABRAHAM BOYD ([id number]) 1960 F Date Time Provider Department 08/23/25 11:00 AM [facility] During your visit today, we recorded the following information about you: Temperature Pulse Blood pressure Weight 98.3 degrees 92/minute 128/72 65 kg Jennifer Kulkarni MD 08/23/2025 4:07 PM Signed Chief Complaint Follow up HPI Abraham Boyd is a 64 year old female who presents here today for 6 month follow up. Smokes 1 ppd; not ready to quit at this time. No bowel, Gi, or urinary issues. Thyroid: Taking Synthroid 112 mcg daily. No missed dosages. Asthma/COPD: Uses Albuterol inhaler prn, Dulera inhaler 2 puffs BID, Spiriva Respimat inhaler daily and Singulair 10 mg daily. Follows with [facility] Pulmonary. Lipid: Does not take medication for cholesterol. Abraham also reports a tremor in her head, which she associates with anxiety and caffeine consumption. This tremor began approximately one year ago and was initially triggered by situations involving close proximity to others, such as during eye exams or haircuts. Over the past 6-8 months, the tremor has become more frequent, occurring even in less stressful situations. She notes that caffeine exacerbates the tremor, while smoking appears to provide some relief, though she is uncertain if this is a placebo effect. She denies any desire to start daily medication for this issue, preferring to manage it with deep breathing exercises. Past medical history, appointments, medications, allergies reviewed. Previous Medical History PAST MEDICAL HISTORY Diagnosis Date Depressive disorder, not elsewhere classified Other emphysema (HCC) PMH - PAST MEDICAL HISTORY OF 06/29/2008 Fracture right foot Restless legs syndrome (RLS) Previous Surgical History PAST SURGICAL HISTORY Procedure Laterality Date , CLASSIC, IN-HOSP CARE 1976,1980 PAST SURGICAL HISTORY OF conization Family History FAMILY HISTORY Problem Relation Age of Onset Cervical Cancer Mother Hypertension Mother Breast Cancer Sister Thyroid Maternal Aunt Patient Allergies ALLERGIES No Known Allergies Current Medications Current Outpatient Medications on File Prior to Visit Medication Sig TRELEGY ELLIPTA 200-62.5-25 mcg inhalation powder Inhale 1 puff as instructed once daily. levothyroxine (SYNTHROID) 112 mcg tablet Take 1 tablet by mouth once daily. Take on empty stomach. For thyroid montelukast (SINGULAIR) 10 mg tablet EVERY EVENING ALBUTEROL INHALATION Inhale as instructed. No current facility-administered medications on file prior to visit. Social History SOCIAL HISTORY[1] EXAM: LMP 10/13/2006 General Appearance: Well appearing, alert, in no acute distress, well-hydrated, well nourished.. Head: slight tremor. Lungs: Lungs clear to auscultation. No wheezing, rhonchi, rales.. Heart: RRR without murmur, gallop, or rubs. No ectopy. Health Maintenance List Hepatitis C Screening Never done HIV Screening Never done DTaP,Tdap,Td Vaccine(1 - Tdap) due on 12/21/2006 Shingrix Vaccine(1 of 2) Never done Colorectal Cancer Screening due on 02/16/2014 Mammogram Screening due on 11/03/2014 RSV Vaccine(1 - Risk 60-74 years 1-dose series) Never done Anxiety Screening due on 07/04/2025 Influenza Vaccine(1) due on 07/30/2025 Bone Density Screening due on 02/19/2026 Pneumococcal Vaccine: 50+(1 of 2 - PCV) due on 02/19/2026 Lung Cancer Screening due on 02/24/2026 Annual PCP Team Chronic Disease Visit due on 08/02/2026 Diabetes Screening due on 06/28/2027 Lipid Screening due on 06/28/2029 Advance Directive Discussion Completed Cervical Cancer Screening Discontinued Data reviewed Appointment on 08/17/2025 Component Date Value TSH 08/17/2025 3.300 Protein, Total 08/17/2025 7.1 Albumin 08/17/2025 4.4 Calcium, Total 08/17/2025 9.4 Bilirubin, Total 08/17/2025 0.6 Alkaline Phosphatase 08/17/2025 83 AST 08/17/2025 25 ALT 08/17/2025 16 Glucose 08/17/2025 90 BUN 08/17/2025 10 Creatinine 08/17/2025 0.67 Sodium 08/17/2025 139 Potassium 08/17/2025 4.3 Chloride 08/17/2025 104 CO2 08/17/2025 24 Anion Gap 08/17/2025 11 Estimated Glomerular Jonah* 08/17/2025 97 Cholesterol, Total 08/17/2025 208 (H) Triglyceride 08/17/2025 81 HDL Cholesterol 08/17/2025 68 LDL Cholesterol, Calcula* 08/17/2025 126 (H) Non HDL Cholesterol 08/17/2025 140 (H) VLDL Cholesterol 08/17/2025 14 TC:HDL Ratio 08/17/2025 3.06 LDL:HDL Ratio 08/17/2025 1.85 Fasting Time 08/17/2025 12 Recording using [employer] software for draft documentation of the visit was discussed with the patient/authorized independent sales representative; all questions welcomed and answered. Patient/authorized independent sales representative agreed to proceed 1. Chronic obstructive pulmonary disease, unspecified COPD type (HCC) (J44.9) Recent acute respiratory illness required two course (more content not included)... Normal [facility] Comprehensive metabolic 2000 panelon 08-17-2025 Albumin [Mass/Vol] 4.4 g/dL Normal 3.9-4.9 [facility] Comment on above: Order Comment: Speci men Type: BLOOD SPECIMENOrdering Facility: [facility] Address: [address] [place] [address] Performed By: #### 3 [id number], 07962-5, [id number] ####[facility] LABCLIA [id number] [place] [address] [place] ALP [Catalytic activity/Vol] 83 U/L Normal 34-123 [facility] Comment on above: Order Comment: Speci men Type: BLOOD SPECIMENOrdering Facility: [facility] Address: [address] [place] [address] Performed By: #### 3 016-3, 76860-6, ####[facility] LABCLIA [id number] [place] [address] [place] ALT [Catalytic activity/Vol] 16 U/L Normal 7-38 [facility] Comment on above: Order Comment: Speci men Type: BLOOD SPECIMENOrdering Facility: [facility] Address: [address] [place] [address] Performed By: #### 3 016-3, 50820-6, ####[facility] LABCLIA [id number] [place] [address] [place] Anion gap [Moles/Vol] 11 mmol/L Normal 8-15 [facility] Comment on above: Order Comment: Speci men Type: BLOOD SPECIMENOrdering Facility: [facility] Address: [address] [place] [address] Performed By: #### 3 016-3, , ####[facility] LABCLIA [id number] [place] [address] [place] AST [Catalytic activity/Vol] 25 U/L Normal 13-35 [facility] Comment on above: Order Comment: Speci men Type: BLOOD SPECIMENOrdering Facility: [facility] Address: [address] [place] [address] Performed By: #### 3 016-3, 51436-6, ####[facility] LABCLIA [id number] [place] [id number] [place] Bilirubin [Mass/Vol] 0.6 mg/dL Normal 0.2-1.3 [facility] Comment on above: Order Comment: Speci men Type: BLOOD SPECIMENOrdering Facility: [facility] Address: [address] [place], [place] [id number] Performed By: #### 3 016-3, 45511-7, ####[facility] LABCLIA [id number] [address] [address] [place] Calcium [Mass/Vol] 9.4 mg/dL Normal 8.5-10.2 [facility] Comment on above: Order Comment: Speci men Type: BLOOD SPECIMENOrdering Facility: [facility] Address: [address] [place], [place] [address] Performed By: #### 3 016-3, 95075-0, 99449-2 ####[facility] LABCLIA [id number] [address] [address] [place] Chloride [Moles/Vol] 104 mmol/L Normal 98-107 [facility] Comment on above: Order Comment: Speci men Type: BLOOD SPECIMENOrdering Facility: [facility] Address: [address] [place], [place] [id number] Performed By: #### 3 016-3, 98718-3, ####[facility] LABCLIA [id number] [place] [id number] [place] CO2 [Moles/Vol] 24 mmol/L Normal 22-30 [facility] Comment on above: Order Comment: Speci men Type: BLOOD SPECIMENOrdering Facility: [facility] Address: [address] [place], [place] [address] Performed By: #### 3 016-3, 72617-8, 13744-2 ####[facility] LABCLIA [id number] [address] [address] [place] Creatinine [Mass/Vol] 0.67 mg/dL Normal 0.58-0.96 [facility] Comment on above: Order Comment: Speci men Type: BLOOD SPECIMENOrdering Facility: [facility] Address: [address] [place] [address] Performed By: #### 3 016-3, 85125-7, 95524-0 ####[facility] [id number] [place] [address] [place] eGFRcr SerPlBld CKD-EPI 2020 97 mL/min/1.73m??? Normal >=60 [facility] Comment on above: Order Comment: Belkis men Type: BLOOD SPECIMENOrdering Facility: [facility] Address: [address] [place] [address] Result Comment: Kandy mated Glomerular Filtration Rate (eGFR) is calculated using the 2020 CKD-EPI creatinine equation. This equation utilizes serum creatinine, sex, and age as parameters. The creatinine assay has traceable calibration to isotope dilution-mass spectrometry. Refer to KDIGO guidelines for clinical interpretation. In patients with unstable renal function, e.g. those with acute kidney injury, the eGFR may not accurately reflect actual GFR. Performed By: #### 3 016-3, 46012-8, 90346-6 ####[facility] [id number] [place] [id number] [place] Glucose [Mass/Vol] 90 mg/dL Normal 74-99 [facility] Comment on above: Order Comment: Belkis mg Type: BLOOD SPECIMENOrdering Facility: [facility] Address: [address] [place] [address] Result Comment: The [place] Diabetes Association (ADA) provides guidance for cutoff values for fasting glucose and random glucose. The ADA defines fasting as no caloric intake for at least 8 hours. Fasting plasma glucose results between 100 to 125 mg/dL indicate increased risk for diabetes (prediabetes). Fasting plasma glucose results greater than or equal to 126 mg/dL meet the criteria for diagnosis of diabetes. In the absence of unequivocal hyperglycemia, results should be confirmed by repeat testing. In a patient with classic symptoms of hyperglycemia or hyperglycemic crisis, random plasma glucose results greater than or equal to 200 mg/dL meet the criteria for diagnosis of diabetes. Reference: Standards of Medical Care in Diabetes 2016, [place] [employer] Association. Diabetes Care. 2016.39(Suppl 1). Performed By: #### 3 016-3, 23064-8, ####[facility] LABCLIA [id number] [address] [address] [place] Potassium [Moles/Vol] 4.3 mmol/L Normal 3.7-5.1 [facility] Comment on above: Order Comment: Speci men Type: BLOOD SPECIMENOrdering Facility: [facility] Address: [address] [place] [address] Performed By: #### 3 016-3, 41854-5, 44091-2 ####[facility] LABCLIA [id number] [place] [address] [place] Protein [Mass/Vol] 7.1 g/dL Normal 6.3-8.0 [facility] Comment on above: Order Comment: Speci men Type: BLOOD SPECIMENOrdering Facility: [facility] Address: [address] [place] [address] Performed By: #### 3 016-3, , ####[facility] LABCLIA [id number] [place] [id number] [place] Sodium [Moles/Vol] 139 mmol/L Normal 136-144 [facility] Comment on above: Order Comment: Speci men Type: BLOOD SPECIMENOrdering Facility: [facility] Address: [address] [place] [address] Performed By: #### 3 016-3, , ####[facility] LABCLIA [id number] [address] [address] [place] Urea nitrogen [Mass/Vol] 10 mg/dL Normal 7-21 [facility] Comment on above: Order Comment: Speci men Type: BLOOD SPECIMENOrdering Facility: [facility] Address: [address] [place] [address] Performed By: #### 3 016-3, 02733-0, 38729-7 ####[facility] LABCLIA [id number] [place] [address] [place] Lipid 1996 panelon 5 Cholesterol [Mass/Vol] 208 mg/dL High <200 [facility] Comment on above: Order Comment: Speci men Type: BLOOD SPECIMENOrdering Facility: [facility] Address: [address] [place] [address] Result Comment: <200 mg/dL, Desirable 200-239 mg/dL, Borderline high >239 mg/dL, High Performed By: #### 3 016-3, 83807-0, 81989-7 ####[facility] LABCLIA [id number] [address] [place] Cholesterol in HDL [Mass/Vol] 68 mg/dL Normal >39 [facility] Comment on above: Order Comment: Speci men Type: BLOOD SPECIMENOrdering Facility: [facility] Address: [address] [place] [address] Result Comment: 40-5 9 mg/dL, Acceptable >59 mg/dL, High: Negative risk factor for coronary heart disease <40 mg/dL, Low: Positive risk factor for coronary heart disease Performed By: #### 3 016-3, 73963-6, 38386-3 ####[facility] LABCLIA [id number] [address] OF [facility] Cholesterol in LDL [Mass/Vol] 126 mg/dL High <100 [facility] Comment on above: Order Comment: Speci men Type: BLOOD SPECIMENOrdering Facility: [facility] Address: [address] [place] [address] Result Comment: <100 mg/dL, Optimal 100-129 mg/dL, Near optimal/above optimal 130-159 mg/dL, Borderline high 160-189 mg/dL, High >189 mg/dL, Very high Secondary prevention optimal LDL Cholesterol levels are recommended to be <70 mg/dL LDL cholesterol is calculated using the Ortega-NIH equation. Performed By: #### 3 016-3, 07552-9, 05434-8 ####[facility] LABCLIA [id number] [address] [place] Cholesterol in LDL/Cholesterol in HDL [Mass ratio] 1.85 {ratio} Normal <2.54 [facility] Comment on above: Order Comment: Belkis men Type: BLOOD SPECIMENOrdering Facility: [facility] Address: [address] [place] [address] Result Comment: Refe rence: 1. National Cholesterol Education Program ATP III Guideline At-A-Glance Quick Desk Reference: National Heart, Lung, and Blood [place]. National Institutes of Health. 2001: NIH Publication No. 01-3305. 2. An International Atherosclerosis Society position paper: global recommendations for the management of dyslipidemia: executive summary, Atherosclerosis. 2014: 232(2):410-413. Performed By: #### 3 016-3, 46113-4, 73210-8 ####[facility] LABCLIA [id number] [place] [address] [place] Cholesterol in VLDL [Mass/Vol] 14 mg/dL Normal <30 [facility] Comment on above: Order Comment: Belkis haritha Type: BLOOD SPECIMENOrdering Facility: [facility] Address: [address] [place] [address] Performed By: #### 3 016-3, , 08667-1 ####[facility] LABCLIA [id number] [address] [place] Cholesterol non HDL [Mass/Vol] 140 mg/dL High <130 [facility] Comment on above: Order Comment: Nikkoi men Type: BLOOD SPECIMENOrdering Facility: [facility] Address: [address] [place] [address] Result Comment: <130 mg/dL, Optimal 130-159 mg/dL, Near optimal/above optimal 160-189 mg/dL, Borderline high 190-219 mg/dL, High >219 mg/dL, Very high Secondary prevention optimal non HDL Cholesterol levels are recommended to be <100 mg/dL Performed By: #### 3 016-3, 28772-2, 90938-5 ####[facility] LABCLIA [id number] [address] [address] [place] Cholesterol.total/Ch olesterol in HDL [Mass ratio] 3.06 {ratio} Normal <5.10 [facility] Comment on above: Order Comment: Speci men Type: BLOOD SPECIMENOrdering Facility: [facility] Address: [address] [place] [address] Performed By: #### 3 016-3, 32230-2, 80901-2 ####[facility] LABIA [id number] [place] [address] [place] FASTING TIME 12 hrs Normal [facility] Comment on above: Order Comment: Speci men Type: BLOOD SPECIMENOrdering Facility: [facility] Address: [address] [place] [address] Performed By: #### 3 016-3, 95977-8, 72415-4 ####[facility] LABIA [id number] [place] [id number] [place] Triglyceride [Mass/Vol] 81 mg/dL Normal <150 [facility] Comment on above: Order Comment: Speci men Type: BLOOD SPECIMENOrdering Facility: [facility] Address: [address] [place] [address] Result Comment: <150 mg/dL, Normal 150-199 mg/dL, Borderline high 200-499 mg/dL, High >499 mg/dL, Very high Performed By: #### 3 016-3, 28664-6, 46058-9 ####[facility] LABIA [id number] [address] [place] [address] [place] TSH SerPl-aCncon 08-17-2025 TSH Qn 3.300 m[IU]/L Normal 0.270-4.200 [facility] Comment on above: Order Comment: Speci men Type: BLOOD SPECIMENOrdering Facility: [facility] Address: [address] [place] [address] Performed By: #### 3 016-3, 11050-7, 63845-7 ####[facility] LUIS [id number] [address] OF [facility] CNOVon 08-02-2025 CNOV Office Visit (FAMPWS ) ABRAHAM BOYD ([id number]) 1960 F Date Time Provider Department 08/02/25 11:40 AM CHRISTOPHER SUH During your visit today, we recorded the following information about you: Temperature Pulse Blood pressure Weight 97.3 degrees 60/minute 130/71 67 kg Christopher Suh, FINGERER.STAGE SETTING PAINTER APPRENTICE 08/02/2025 12:06 PM Signed Chief Complaint Patient presents with: Follow Up: Cough, fatigue HPI Abraham Olmos Satish is a 64 year old female who presents here today for Above Complaints.. Patient presents continued cough, congestion and fatigue. Comopleted 5 days prednisone and augmentin with no change in symptoms. Past medical history, appointments, medications, allergies reviewed. Previous Medical History PAST MEDICAL HISTORY Diagnosis Date Depressive disorder, not elsewhere classified Other emphysema (HCC) PMH - PAST MEDICAL HISTORY OF 06/29/2008 Fracture right foot Restless legs syndrome (RLS) Previous Surgical History PAST SURGICAL HISTORY Procedure Laterality Date , CLASSIC, IN-HOSP CARE 1976,1980 PAST SURGICAL HISTORY OF conization Family History FAMILY HISTORY Problem Relation Age of Onset Cervical Cancer Mother Hypertension Mother Breast Cancer Sister Thyroid Maternal Aunt Patient Allergies ALLERGIES No Known Allergies Current Medications Current Outpatient Medications on File Prior to Visit Medication Sig TRELEGY ELLIPTA 200-62.5-25 mcg inhalation powder Inhale 1 puff as instructed once daily. levothyroxine (SYNTHROID) 112 mcg tablet Take 1 tablet by mouth once daily. Take on empty stomach. For thyroid montelukast (SINGULAIR) 10 mg tablet EVERY EVENING ALBUTEROL INHALATION Inhale as instructed. No current facility-administered medications on file prior to visit. Social History SOCIAL HISTORY[1] Review of Symptoms REVIEW OF SYSTEMS SEE HPI EXAM: BP 130/71 Pulse 60 Temp 36.3 ?C (97.3 ?F) Wt 67 kg (147 lb 11.3 oz) LMP 10/13/2006 SpO2 98% BMI 29.33 kg/m? General Appearance: Well appearing, alert, in no acute distress, well-hydrated, well nourished. Nose/Sinuses: Positive findings: mucosa erythematous and swollen, purulent rhinorrhea. Oropharynx: Lips, mucosa, and tongue normal, teeth and gums normal, oropharynx normal. Neck: Supple, no adenopathy; thyroid symmetric, normal size, no bruits. Lungs: Lungs clear to auscultation. No wheezing, rhonchi, rales.. Heart: RRR without murmur, gallop, or rubs. No ectopy. Health Maintenance List Hepatitis C Screening Never done HIV Screening Never done DTaP,Tdap,Td Vaccine(1 - Tdap) due on 12/21/2006 Shingrix Vaccine(1 of 2) Never done Colorectal Cancer Screening due on 02/16/2014 Mammogram Screening due on 11/03/2014 RSV Vaccine(1 - Risk 60-74 years 1-dose series) Never done Anxiety Screening due on 07/04/2025 Influenza Vaccine(1) due on 07/30/2025 Bone Density Screening due on 02/19/2026 Pneumococcal Vaccine: 50+(1 of 2 - PCV) due on 02/19/2026 Annual PCP Team Chronic Disease Visit due on 02/19/2026 Lung Cancer Screening due on 02/24/2026 Diabetes Screening due on 06/28/2027 Lipid Screening due on 06/28/2029 Advance Directive Discussion Completed Cervical Cancer Screening Discontinued ASSESSMENT/PLAN: 1. Bacterial sinusitis - ICD9: 473.9, 041.9, ICD10: J32.9, B96.89 - Will begin treatment with Doxycycline - The patient should also be given warm salt water gargles, throat lozenges and/or OTC throat spray as needed for the first 5-7 days of treatment. - Supportive care with plenty of fluids, rest, and analgesia prn. - Follow up in 3-5 days if symptoms persist or worsen. - DOXYCYCLINE HYCLATE 100 MG TABLET Christopher Suh, FINGERER.STAGE SETTING PAINTER APPRENTICE [1] Social History Tobacco Use Smoking status: Every Day Current packs/day: 1.00 Average packs/day: 1 pack/day for 30.0 years (30.0 ttl pk-yrs) Types: Cigarettes Smokeless tobacco: Never Tobacco comments: 1 ppd Substance Use Topics Alcohol use: Yes Comment: OCCASIONALLY Drug use: No Allergies As of Date: 08/02/2025 (No Known Allergies) Date Reviewed: 08/02/2025 Reviewed by: Beatriz Estrella MA - Fully Assessed Reason for Visit: Follow Up [171] Cmt: Cough, fatigue Primary Visit Diagnosis:Bacterial sinusitis [J32.9, B96.89] Order(s):doxycycline (VIBRA-TABS) 100 mg tabletTake 1 tablet by mouth two times a day for 7 days.Disp: 14 tabletRfl: 0 Prescriptions as of 08/02/2025 - doxycycline (VIBRA-TABS) 100 mg tablet Take 1 tablet by mouth two times a day for 7 days. - TRELEGY ELLIPTA 200-62.5-25 mcg inhalation powder Inhale 1 puff as instructed once daily. - levothyroxine (SYNTHROID) 112 mcg tablet Take 1 tablet by mouth once daily. Take on empty stomach. For thyroid - montelukast (SINGULAIR) 10 mg tablet EVERY EVENING - ALBUTEROL INHALATION Inhale as instructed. Problem List As Of Date (more content not included)... Normal [facility] CNOVon 07-27-2025 CNOV Office Visit (WOUCA) ABRAHAM BOYD ([id number]) 1960 F Date Time Provider Department 07/27/25 11:45 AM DONOVAN ROMEO During your visit today, we recorded the following information about you: Temperature Pulse Respiration Blood pressure 98 degrees 74/minute 16/minute 120/70 Weight 95.3 kg Donovan Romeo APRN.CNP 07/27/2025 1:35 PM Signed [facility] Subjective Abraham Boyd is a 64 year old female presenting with a productive cough, chest congestion, and fatigue. Patient reports symptoms started a week ago which she though was her allergies, symptoms have gradually worsened. She reports being febrile, having chills, sneezing, and have nasal congestion and a runny nose. She now reports her sore throat, sneezing, fever, and chills have improved. Cough This is a new problem. The current episode started more than 1 week ago. The problem occurs constantly. The problem has been gradually worsening. The cough is Productive of purulent sputum. There has been no fever. Associated symptoms include headaches, rhinorrhea, shortness of breath and wheezing (worse at night). Pertinent negatives include no chest pain, no chills (reports episodes previously that has resolved), no sweats, no ear congestion, no ear pain, no sore throat (reports having one but resolved), no myalgias and no eye redness. Associated symptoms comments: Sore throat . She has tried decongestants and cough syrup (mucinex) for the symptoms. The treatment provided no relief. She is a smoker. Her past medical history is significant for COPD. Review of Systems Constitutional: Positive for fatigue. Negative for chills (reports episodes previously that has resolved) and fever (resolved). HENT: Positive for congestion, rhinorrhea and sinus pain (4/10). Negative for ear discharge, ear pain, facial swelling, postnasal drip, sinus pressure, sneezing, sore throat (reports having one but resolved), tinnitus, trouble swallowing and voice change. Eyes: Negative for pain, discharge, redness and itching. Respiratory: Positive for cough, shortness of breath and wheezing (worse at night). Negative for chest tightness. Cardiovascular: Negative for chest pain and palpitations. Gastrointestinal: Negative for abdominal distention and abdominal pain. Musculoskeletal: Negative for myalgias. Allergic/Immunologic: Positive for environmental allergies. Neurological: Positive for headaches. Negative for dizziness and light-headedness. Objective BP 120/70 Pulse 74 Temp 36.7 ?C (98 ?F) (Tympanic) Resp 16 Wt 95.3 kg (210 lb 1.6 oz) LMP 10/13/2006 SpO2 98% BMI 41.72 kg/m? Physical Exam Vitals and nursing note reviewed. Constitutional: General: She is not in acute distress. Appearance: Normal appearance. She is ill-appearing. She is not toxic-appearing. HENT: Head: Normocephalic. Right Ear: Tympanic membrane, ear canal and external ear normal. There is no impacted cerumen. Left Ear: Tympanic membrane, ear canal and external ear normal. There is no impacted cerumen. Nose: Nose normal. No congestion or rhinorrhea. Mouth/Throat: Lips: [place]. Mouth: Mucous membranes are moist. Tongue: No lesions. Tongue does not deviate from midline. Palate: No mass and lesions. Pharynx: Oropharynx is clear. Uvula midline. No pharyngeal swelling, oropharyngeal exudate, posterior oropharyngeal erythema, uvula swelling or postnasal drip. Tonsils: No tonsillar exudate or tonsillar abscesses. 1+ on the right. 1+ on the left. Eyes: General: Lids are normal. Lids are everted, no foreign bodies appreciated. Extraocular Movements: Extraocular movements intact. Conjunctiva/sclera: Conjunctivae normal. Pupils: Pupils are equal, round, and reactive to light. Cardiovascular: Rate and Rhythm: Normal rate and regular rhythm. Heart sounds: Normal heart sounds, S1 normal and S2 normal. No murmur heard. Pulmonary: Effort: Pulmonary effort is normal. Breath sounds: Normal breath sounds and air entry. No decreased breath sounds or wheezing. Musculoskeletal: Cervical back: Normal range of motion. Lymphadenopathy: Head: Right side of head: No submental, submandibular, tonsillar, preauricular, posterior auricular or occipital adenopathy. Left side of head: No submental, submandibular, tonsillar, preauricular, posterior auricular or occipital adenopathy. Skin: General: Skin is warm. Capillary Refill: Capillary refill takes less than 2 seconds. Neurological: Mental Status: She is alert and oriented to person, place, and time. Psychiatric: Mood and Affect: Mood normal. {ASSESSMENT/PLAN: 1. Bacterial sinusitis - ICD9: 473.9, 041.9, ICD10: J32.9, B96.89 (primary diagnosis) - Educated to complete full course of antibiotics - Educated on smoking cessation - Supportive care with plenty of fluids, rest, and analg (more content not included)... Normal [facility] CHEST 2V FRONTAL/LATon XR CHEST 2V FRONTAL/LAT * * *Final Report* * * DATE OF EXAM: Jul 27 2025 12:40PM WOX [id number] - XR CHEST 2V FRONTAL/LAT / PROCEDURE REASON: Acute cough * * * * Physician Interpretation * * * * EXAMINATION: CHEST RADIOGRAPH (2 VIEW FRONTAL and LATERAL) CLINICAL HISTORY: Acute cough MQ: XC2_6 EXAM DATE/TIME: 07/27/2025 12:40 PM COMPARISON: 09/08/2023 RESULT: Lines, tubes, and devices: None. Lungs and pleura: No consolidation. No lung mass. No pleural effusion. No pneumothorax. Cardiomediastinal silhouette: Normal cardiomediastinal silhouette. Bones and soft tissues: Unremarkable. IMPRESSION: No acute radiographic abnormality. Data Services Developer: [employer] Transcribe Date/Time: Jul 27 2025 12:43P Dictated by : SABINO KAPOOR MD This examination was interpreted and the report reviewed and electronically signed by: SABINO KAPOOR MD on Jul 27 2025 12:44PM EST [id number] Normal [facility] XR Chest PA and Lateralon IMPRESSION: No acute radiographic abnormality. Data Services Developer: [facility] Transcribe Date/Time: Jul 27 2025 12:43P Dictated by : SABINO KAPOOR MD This examination was interpreted and the report reviewed and electronically signed by: SABINO KAPOOR MD on Jul 27 2025 12:44PM EST DIVISION OF RADIOLOGY * * *Final Report* * * DATE OF EXAM: Jul 27 2025 12:40PM WOX [id number] - XR CHEST 2V FRONTAL/LAT / PROCEDURE REASON: Acute cough * * * * Physician Interpretation * * * * EXAMINATION: CHEST RADIOGRAPH (2 VIEW FRONTAL & LATERAL) CLINICAL HISTORY: Acute cough MQ: XC2_6 EXAM DATE/TIME: 07/27/2025 12:40 PM COMPARISON: 09/08/2023 RESULT: Lines, tubes, and devices: None. Lungs and pleura: No consolidation. No lung mass. No pleural effusion. No pneumothorax. Cardiomediastinal silhouette: Normal cardiomediastinal silhouette. Bones and soft tissues: Unremarkable. DIVISION OF RADIOLOGY Provider, [facility] - 07/27/2025 * * *Final Report* * * DATE OF EXAM: Jul 27 2025 12:40PM WOX [id number] - XR CHEST 2V FRONTAL/LAT / PROCEDURE REASON: Acute cough * * * * Physician Interpretation * * * * EXAMINATION: CHEST RADIOGRAPH (2 VIEW FRONTAL & LATERAL) CLINICAL HISTORY: Acute cough MQ: XC2_6 EXAM DATE/TIME: 07/27/2025 12:40 PM COMPARISON: 09/08/2023 RESULT: Lines, tubes, and devices: None. Lungs and pleura: No consolidation. No lung mass. No pleural effusion. No pneumothorax. Cardiomediastinal silhouette: Normal cardiomediastinal silhouette. Bones and soft tissues: Unremarkable. IMPRESSION IMPRESSION: No acute radiographic abnormality. Data Services Developer: [employer] Transcribe Date/Time: Jul 27 2025 12:43P Dictated by : SABINO KAPOOR MD This examination was interpreted and the report reviewed and electronically signed by: SABINO KAPOOR MD on Jul 27 2025 12:44PM EST [facility] Radiology Study observation (narrative) [facility] XR Chest PA and LateralOrder ed By: Ccdomi Provider on 07-27-2025 [facility] Pulmonary Visit Reporton Pulmonary Visit Report [facility] Pulmonary Medicine of [address] [place] [address] OFFICE VISIT Date of Service: 04/19/25 MR#: [id number] Acct: [id number] Name: ABRAHAM BOYD Rep #: [id number] : 1960 Provider: ALFONSO Paiz Age/Sex: 64/F Location: [facility] Status: Signed Assessment and Plan Assessment and Plan (1) Asthma-COPD overlap syndrome: Status: Chronic Plan: Stable, she does not appear to be an exacerbation of COPD today. No need for prednisone or antibiotic. Continue triple therapy, however insurance is no longer covering Dulera and Spiriva. For this reason, I am switching her to Trelegy. She was provided with a sample in the office today and personal instructions on how to use the Ellipta device. No additional testing at this time. Plan for annual PFT and walking oximetry to be performed in January 2026. Contact the office for any new or worsening symptoms. An acute visit and typically be arranged within 1-2 days. Follow-up in February 2026. (2) Smoking greater than 30 pack years: Status: Chronic Comment: LDCT ordered for January 2026 Plan: Continue to encourage complete smoking cessation. Repeat LDCT due in January 2026, ordered accordingly. Orders: Orders PFT Complete - DLCO, Spirometry b/a bronchodilators, lung volumes 01/27/26 J44.9 - Chronic obstructive pulmonary disease, unspecified Simple Pulmonary Exercise Test 01/27/26 J44.9 - Chronic obstructive pulmonary disease, unspecified Medications: New fluticasone-umeclidin- vilanter 200-62.5-25 mcg (Trelegy Ellipta) 1 inh inhalation DAILY 60 ea 6RF Discontinued mometasone-formoterol 200-5 mcg/actuation (Dulera) Discontinued Reason: Order Changed 2 puffs inhalation BID 13 grams 11RF tiotropium bromide 2.5 mcg/actuation (Spiriva Respimat) administer at approximately the same time(s) each day Discontinued Reason: Order Changed 2 inhalations inhalation QDAY 1 ea 6RF Plan Details Additional Comments: This note was generated with [employer] dictation software. It may contain incorrect words, spelling, and punctuation that were not noted in checking the note before signing. Follow Up: 1 Year HPI 6 M FU Chief Complaint: Test results HPI Comments Details: This patient presents to the office today to discuss test results. She is ambulatory and currently on room air. She has not recently been seen in the ED or urgent care for any respiratory illness. She has not required any antibiotics or prednisone for any breathing problems. She is compliant with use of Dulera 2 puffs twice daily. She does report rinsing her mouth out after each use. She denies any medication side effect such as sore throat or thrush. She is compliant with Spiriva and Singulair daily. She has not recently required the use of albuterol rescue inhaler. She continues to smoke cigarettes, and is currently smoking 1 pack/day. She denies any shortness of breath. She denies any cough, sputum production or hemoptysis. She denies any wheezing, chest pain or palpitations. She has not had any fever, chills or body aches. Test results personally viewed patient: Pulmonary function test completed on February 15, 2025. Impression is isolated mild large airway obstructive dilatory defect with preserved lung volumes and diffusing capacity. FEV1 95% of predicted. Low-dose CT lung screening completed on February 24, 2025. Emphysematous disease is present. Stable punctuate pulmonary nodule in the right upper lobe measuring 2.4 mm. Recommendation is to continue LDCT in 12 months. Walking oximetry completed on March 08, 2025. Patient was able to ambulate total of 831 feet over the course of 6 minutes. She did not become hypoxic and does not currently require any supplemental oxygen. Intake Vital Signs 03/08/25 13:45 04/19/25 08:19 Height 4 ft 11 in 4 ft 11 in Weight: 140 lb 143 lb BMI 28.8 BP 130/82 H Blood Pressure Location Lt brachial Position Sitting Respiration 18 Pulse 78 70 Pulse Source NIBP Temp 97.5 F L Temperature Source Temporal Artery Pulse Oximetry (%) 99 96 Oxygen Delivery Method room air Intake Visit Reasons: 6 M FU Chief Complaint: SOB Water Softener Installer Required: No Accompanied by: Self Is patient in pain?: No Allergies No Known Allergies Allergy (Verified 04/19/25 09:15) Medications ???Medication ???Instructions ???Recorded ???Confirmed ???Type albuterol sulfate 90 mcg/actuation 1 - 2 puff inhalation Q4H PRN VA N 02/08/23 04/19/25 Rx aerosol inhaler Shortness Of Breath ##1 levothyroxine 112 mcg tablet 112 mcg PO QDAY 02/25/24 04/19/25 History montelukast 10 mg tablet 10 mg PO QPM #90 tabs 09/19/24 Rx fluticasone fur. 200 mcg-umeclid 1 inh inhalation DAILY #60 ea 03/3004/19/25 Rx 62.5 mcg-vilant 25 (more content not included)... [facility] 6 Minute Walk Teston 025 6 Minute Walk Test y [facility] Pulmonary Services/Neurology [address] [place] [address] MR#: [id number] Acct: [id number] Name: ABRAHAM BOYD Rep #: [id number] : 1960 64 From: Parminder Jackson DO Referring Dr: Gini Paiz WEBMETHODS CONSULTANT WEBMETHODS CONSULTANT-C Status: REG CLI Location: PSN Date: Sex: F C PSN 6 Minute Walk Test 6 Minute Walk Test 6 Minute Walk Test: 6 Minute Walk Test PSN:6-Minute Walk Test Start: 03/08/25 14:04 Freq: Status: Active Protocol: [id number] Document 03/08/25 13:45 AEH (Rec: 03/08/25 14:08 AEH [id number]) 6 Minute Walk Test Date Performed 03/08/25 Time Performed 13:45 Height 4 ft 11 in Weight: 140 lb Weight in Pounds 140.[address]: Ami Assistive device None used: Pre-test Oxygen Delivery Room Air Method Pulse Ox (%) 98 Pulse Rate (60-100 72 beats/min) Dyspnea Masha Scale ( 0 0-10) Exertion Masha Scale 6 (6-20) 1st minute Oxygen Delivery Room Air Method Pulse Ox (%) 98 Pulse Rate (60-100 90 beats/min) 2nd minute Oxygen Delivery Room Air Method Pulse Ox (%) 98 Pulse Rate (60-100 95 beats/min) 3rd minute Oxygen Delivery Room Air Method Pulse Ox (%) 96 Pulse Rate (60-100 92 beats/min) 4th minute Oxygen Delivery Room Air Method Pulse Ox (%) 99 Pulse Rate (60-100 90 beats/min) 5th minute Oxygen Delivery Room Air Method Pulse Ox (%) 99 Pulse Rate (60-100 95 beats/min) 6th minute Oxygen Delivery Room Air Method Pulse Ox (%) 98 Pulse Rate (60-100 101 H beats/min) Dyspnea Masha Scale ( 0 0-10) Exertion Masha Scale 11 (6-20) Post-test Oxygen Delivery Room Air Method Pulse Ox (%) 99 Pulse Rate (60-100 78 beats/min) Full Laps Walked 14 Partial Lap, Number 5 of Tiles Walked Total Distance 831 Walked (ft) Interpretation Interpretation: The patient ambulated 831 feet over the course of 6 minutes beginning on room air without assistive devices. Pretesting oxygen saturation was noted to be 98% on room air. With ambulation, the ashley oxygen saturation was 96%. There was no significant exertional oxygen desaturation. Recommendations Recommendations: There is no indication for the use of supplemental oxygen at this time. 03/12/25 1124 Date Parminder Jackson DO CC: Date Dictated: 03/12/254 Date Transcribed: 03/12/251123 Data Services Developer: Dr. Parminder Jackson, Signed [facility] Low Dose CT Lung Screeningon 02-24-[address] Lung Screening [facility] Imaging Services [address] [place] [address] Lung Screening MR#: [id number] Acct: [id number] Name: ABRAHAM BOYD Rep #: [id number] : 1960 F 64 From: Elle Gallegos MD PCP: Dr. Jennifer Kulkarni MD Status: REG CLI Study: Low Dose CT Lung Screening Date of Exam: 02/24 Exam# [id number] Ordering Dr: Gini Paiz WEBMETHODS CONSULTANT WEBMETHODS CONSULTANT-C PROCEDURE: LOW DOSE CT LUNG SCREENING 02/24/2025 REASON FOR EXAM: SMOKER TECHNIQUE: Low Dose CT Lung screening without contrast. Coronal and Sagittal reconstruction series were provided. One or more dose reduction techniques were used (e.g., Automated exposure control, adjustment of the mA and/or kV according to patient size, use of iterative reconstruction technique). REFERENCE LINK: [employer] Lung-RADS COMPARISON: 02/15/2024 FINDINGS: Lungs/Pleura:Emphysema tous disease is present. There is a stable punctate pulmonary nodule in the right upper lobe measuring 2.4 mm.No pleural effusion or pneumothorax. Cardiovascular:The heart is normal in size.No coronary artery calcifications are identified.The aorta and pulmonary arteries are unremarkable. Pericardium:No effusion. Mediastinum:Unremarkab le. Lymph nodes:No lymph node enlargement identified on this noncontrast CT. Bones:No acute osseous abnormality.Mild-to-mo derate multilevel degenerative changes are present. Soft tissues:Unremarkable. Upper abdomen:Hepatic cysts are again noted. CT/Low Dose CT Lung Screening IMPRESSION: 1. Stable punctate pulmonary nodule. Lung-RADS category 2: Benign. 2. Emphysematous disease. Reading Location: [facility] CC: ALFONSO Paiz; Dr. Jennifer Kulkarni MD Data Services Developer: Signed [facility] CNOVon 02-19-2025 CNOV Office Visit (FAMPWS ) SATISHABRAHAM D ([id number]) 1960 F Date Time Provider Department 02/19/25 12:00 PM JENNIFER KULKARNI FAMPWS During your visit today, we recorded the following information about you: Pulse Respiration Blood pressure Weight 64/minute 16/minute 122/84 64.1 kg Height 1.511 m Jennifer Kulkarni MD 02/19/2025 12:38 PM Signed Abraham Olmos Satish is a 64 year old female here for a Medicare wellness visit. Medicare Health Risk Assessment General Health Fair Exercise: Minutes/Day 0 min Exercise: Days/Week 0 days Alcohol: Daily Use 2-3 times a week Alcohol: Drinks/Day 1 or 2 Alcohol: 6 or more drinks Never Feel off balance No Concerns: Teeth/Dentures No Concerns: Sexual function No Troubled by feelings None of the above Frequency: Eating healthy diet Several days ADLs requiring help None of the above Safety precautions in home/vehicle Yes Smoke, vape, chews tobacco Yes, but I'm not ready to quit Difficulty hearing No Difficulty seeing No Current Providers Specialists: I have reviewed specialist-related care of the patient in the medical record. Current care team: Patient Care Team: Jennifer Kulkarni MD as PCP - General (Family Medicine) Meg Finley APRN.KATHIA as Cost Control Supervisor (Family Medicine) Johnathan Zuniga APRN.CNP as Cost Control Supervisor (Family Medicine) Gini Zhu CNP - [facility] (unable to recall name of Provider) Medical/Family history review Reviewed and updated problem list, medical/surgical/famil y/social history, medications, and allergies. Opioid use review Opioid Medications (last 90 days) No data to display Anxiety/Depression screening PHQ-2 Score: 0 (Lower risk for depression) Recommendation: no further intervention at this time Cognitive screening Cognitive screening reviewed and No further action needed (score 3-5). Functional Observation Was the patient's Timed Up AND Go test unsteady or >= 12 seconds? No Advance Care Planning Patient did not wish or was not able to name a surrogate decision maker or provide an advance care plan Measurements LMP 10/13/2006 Vision Screening: Right: 20/30 Left: 20/ 25 Both: 20/25 Did not have glasses on during exam, wears them generally. Color exam normal. Assessment/Plan Medicare annual wellness visit, initial (Z00.00) - Counseled on healthy diet and regular exercise - Fall avoidance information provided - Personalized prevention plan provided Chief Complaint Patient presents with: Medicare Wellness Exam HPI Abraham Boyd is a 64 year old female who presents here today for 6 month follow up and Medicare Wellness. Retired 3 months ago, has not been motivated to do anything since then; gaining weight, not exercising,smoking. Smoker - Smokes 1 ppd, thinks about quitting just not quite ready. No bowel, Gi, or urinary issues. No chest pains, dizziness, or SOB. Asthma: Stable with Albuterol inhaler prn, Dulera inhaler 2 puffs BID, Spiriva Respimat inhaler daily and Singulair 10 mg daily. Follows with [facility] Pulmonary, see's them about once very 3 months. Thyroid: Taking Synthroid 112 mcg daily. Feels stable on this dosage. Occasional missed dosages. Diet/Exercise - Admits that her diet is not the greatest right now as well as exercise. Stopped working in October, since that time has not done the greatest. HM - Denies having Adv Dir/Living Will (denies wanting paperwork). Declines Covid vaccine. Declines BMD screening. Agreeable to Cologuard. Past medical history, appointments, medications, allergies reviewed. Previous Medical History PAST MEDICAL HISTORY Diagnosis Date Depressive disorder, not elsewhere classified Other emphysema (HCC) PMH - PAST MEDICAL HISTORY OF 06/29/2008 Fracture right foot Restless legs syndrome (RLS) Previous Surgical History PAST SURGICAL HISTORY Procedure Laterality Date , CLASSIC, IN-HOSP CARE 1976,1980 PAST SURGICAL HISTORY OF conization Family History FAMILY HISTORY Problem Relation Age of Onset Cervical Cancer Mother Hypertension Mother Breast Cancer Sister Thyroid Maternal Aunt Patient Allergies ALLERGIES No Known Allergies Current Medications Current Outpatient Medications on File Prior to Visit Medication Sig DULERA 200-5 mcg/actuation inhaler Inhale 2 Puffs as instructed two times a day. SPIRIVA RESPIMAT 2.5 mcg/actuation inhaler Inhale 2 Puffs as instructed once daily. levothyroxine (SYNTHROID) 112 mcg tablet Take 1 tablet by mouth once daily. Take on empty stomach. For thyroid montelukast (SINGULAIR) 10 mg tablet EVERY EVENING ALBUTEROL INHALATION Inhale as instructed. No current facility-administered medications on file prior to visit. Social History Social History Tobacco Use Smoking status: Every Day Current packs/day: 1.00 Average packs/day: 1 pack/day for 30 (more content not included)... Normal [facility] TSH SerPl-aCncon 01-01-2025 TSH Qn 2.870 m[IU]/L Normal 0.270-4.200 [facility] Comment on above: Order Comment: Speci men Type: BLOOD SPECIMENOrdering Facility: [facility] Address: [address] [place] [address] Performed By: #### 3 [id number] ####[facility] LABCLIA [id number] [place] [address] [place] Pulmonary Visit Reporton Pulmonary Visit Report [facility] Pulmonary Medicine of [address] [place] [address] OFFICE VISIT Date of Service: 09/19/24 MR#: [id number] Acct: [id number] Name: ABRAHAM BOYD Rep #: [id number] : 1960 Provider: ALFONSO Paiz Age/Sex: 63/F Location: [facility] Status: Signed Assessment and Plan Assessment and Plan (1) Asthma-COPD overlap syndrome: Status: Chronic Plan: Stable, she does not appear to be an exacerbation of COPD today. No need for prednisone or antibiotic. Continue current maintenance medication, on triple therapy with use of Dulera and Spiriva. Repeat pulmonary function test and walking oximetry prior to her 6-month follow-up. Contact the office for any new or worsening symptoms. An acute visit and typically be arranged within 1-2 days. Follow-up in February 2025. (2) Smoking greater than 30 pack years: Status: Chronic Comment: LDCT ordered for January 2025 Plan: Encourage complete smoking cessation. Repeat LDCT due in January 2025, ordered previously. Orders: Orders Pulmonary Function Test (Comp) 01/27/25 J44.9 - Chronic obstructive pulmonary disease, unspecified Simple Pulmonary Exercise Test 01/27/25 J44.9 - Chronic obstructive pulmonary disease, unspecified Medications: Refilled montelukast 10 mg PO QPM 90 tabs 3RF Plan Details Follow Up: 02/27/25 ([facility]) HPI 3 M FU Chief Complaint: Medication review HPI Comments Details: This patient presents to the office today to evaluate how she has responded to medication change. She is ambulatory and currently on room air. She has not recently been seen in the ED or urgent care for any respiratory illness. She has not required any antibiotics or prednisone for any breathing problems. She is compliant with use of Dulera 2 puffs twice daily. She does report rinsing her mouth out after each use. She denies any medication side effect such as sore throat or thrush. She is Spiriva and Singulair daily. She does report shortness of breath on exertion. It is improved since starting Spiriva. She denies any cough, sputum production or hemoptysis. She denies any wheezing, chest pain or palpitations. She has not had any fever, chills or body aches. She continues to smoke cigarettes. She is currently smoking almost 1 pack/day. Intake Vital Signs 06/13/24 07:48 09/19/24 07:14 Height 4 ft 11 in 4 ft 11 in Weight: 134 lb 137 lb BMI 27.0 27.6 BP 145/77 H 128/57 H Blood Pressure Location Lt brachial Lt brachial Position Sitting Sitting Respiration 16 Pulse 58 L 60 Pulse Source Monitor Monitor Temp 97.3 F L 97.1 F L Temperature Source Temporal Artery Temporal Artery Pulse Oximetry (%) 98 99 Oxygen Delivery Method room air room air Intake Visit Reasons: 3 M FU Chief Complaint: SOB DME Vendor: N/A Accompanied by: Self Allergies No Known Allergies Allergy (Verified 09/19/24 07:39) Medications ???Medication ???Instructions ???Recorded ???Confirmed ???Type lorazepam 0.5 mg tablet (Ativan) 0.5 mg PO TID PRN anxiety #10 tabs 08/08/22 09/19/24 Rx albuterol sulfate 90 mcg/actuation 1 - 2 puff inhalation Q4H PRN PRN 02/08/23 09/19/24 Rx aerosol inhaler Shortness Of Breath ##1 levothyroxine 112 mcg tablet 112 mcg PO QDAY 02/25/24 09/19/24 History mometasone-formoterol HFA 200 2 puff inhalation BID #13 grams 04/25/24 09/19/24 Rx mcg-5 mcg/actuation aerosol inhaler (Dulera) tiotropium bromide 2.5 2 inh inhalation QDAY #1 ea 06/16/24 09/19/24 Rx mcg/actuation mist for inhalation (Spiriva Respimat) montelukast 10 mg tablet 10 mg PO QPM #90 tabs 09/19/24 09/19/24 Rx PFSH Medical History Thyroid disorder Cervical cancer Wheezing Acute respiratory failure with hypoxia Viral pneumonia Surgical History No pertinent past surgical history Family History Mother Cancer Lung Social History Smoking Status: Current some day smoker tobacco type: cigarettes Tobacco: How many years used: 48 alcohol intake: current alcohol intake frequency: 0-2 drinks per day Alcohol type: beer Review of Systems Resp Respiratory: Yes as per HPI Exam Const Constitutional: Positive conversant, cooperative, in no acute respiratory distress, healthy appearing, well developed, well nourished and good hygiene Head Head: Yes normocephalic, Yes atraumatic and No cyanosis of lips/distal nose Eyes Eye: Positive clear conjunctiva; Negative nystagmus Ears Ear: Positive hearing normal and external ears normal Nose Nose: Yes external nose normal Mouth Mouth: (more content not included)... Normal [facility] Pulmonary Visit Reporton Pulmonary Visit Report [facility] [place] [address] [place] [address] OFFICE VISIT Date of Service: 06/13/24 MR#: [id number] Acct: [id number] Name: ABRAHAM BOYD Rep #: [id number] : 1960 Provider: ALFONSO Paiz Age/Sex: 63/F Location: [facility] Status: Signed Assessment and Plan Assessment and Plan (1) Asthma-COPD overlap syndrome: Status: Chronic Plan: She does not appear to be an exacerbation of her asthma/COPD overlap syndrome. She does have shortness of breath on exertion. If you recall, the last office visit I tried to order Breztri and put her on triple therapy. However, it was not covered by her insurance plan. For that reason she was put on Dulera. At today's office visit she was provided with a sample of Spiriva. She was given personal instruction on how to use the Respimat device. She is going to use this medication for couple days and then give us a call the office if she would like me to send in the prescription. Otherwise, follow-up in 3 months to evaluate her symptoms. She has been encouraged to contact the office with any new or worsening symptoms in the meantime. (2) Smoking greater than 30 pack years: Status: Chronic Comment: LDCT ordered for January 2025 Plan: Encourage complete smoking cessation. Repeat LDCT due in January 2025, ordered previously. Medications: Discontinued wpbzhyaglx-rwjvrymt-ku rmoterol 160-9-4.8 mcg/actuation (Breztri Aerosphere) Discontinued Reason: Order Changed 2 inhalations inhalation BID 10.7 grams 6RF Plan Details Follow Up: 3 Months ([facility]) HPI 4 m fu Chief Complaint: Medication change HPI Comments Details: This patient presents to the office today to evaluate how she has responded to medication change. She is ambulatory and currently on room air. She has not recently been seen in the ED or urgent care for any respiratory illness. She has not required any antibiotics or prednisone for any breathing problems. After the last office visit she was treated for exacerbation and completed the medications ordered. She has returned to baseline. At that time she was ordered Breztri and provided with a sample. However, this medication was not covered by her insurance provider. They suggested that she be placed on Dulera. She has been compliant with Dulera twice daily. She does report rinsing her mouth out after each use. She denies any medication side effect such as sore throat or thrush. She is currently using her albuterol 2-3 times per week. She does report shortness of breath on exertion. She is exerted somewhat easily. She is also having shortness of breath with hot humid weather. She has a cough that can be productive of clear- colored sputum. She denies any hemoptysis. She does report chest congestion and chest tightness. She denies any wheezing, chest pain or palpitations. She has not had any fever, chills or body aches. She continues to smoke cigarettes. She is currently smoking 1 pack/day. Intake Vital Signs 02/25/24 08:21 06/13/24 07:48 Height 4 ft 11 in 4 ft 11 in Weight: 128 lb 134 lb BMI 25.8 27.0 BP 117/64 145/77 H Blood Pressure Location Rt brachial Lt brachial Position Sitting Sitting Respiration 16 Pulse 63 58 L Pulse Source Monitor Monitor Temp 97.4 F L 97.3 F L Temperature Source Temporal Artery Temporal Artery Pulse Oximetry (%) 98 98 Oxygen Delivery Method room air room air Intake Visit Reasons: 4 m fu Chief Complaint: SOB Water Softener Installer Required: No Accompanied by: Self Allergies No Known Allergies Allergy (Verified 06/13/24 07:50) Medications ???Medication ???Instructions ???Recorded ???Confirmed ???Type lorazepam 0.5 mg tablet (Ativan) 0.5 mg PO TID PRN anxiety #10 tabs 08/08/22 06/13/24 Rx albuterol sulfate 90 mcg/actuation 1 - 2 puff inhalation Q4H PRN PRN 02/08/23 06/13/24 Rx aerosol inhaler Shortness Of Breath ##1 montelukast 10 mg tablet 10 mg PO QPM #90 tabs 07/16/23 06/13/24 Rx levothyroxine 112 mcg tablet 112 mcg PO QDAY 02/25/24 06/13/24 History mometasone-formoterol HFA 200 2 puff inhalation BID #13 grams 04/25/24 06/13/24 Rx mcg-5 mcg/actuation aerosol inhaler (Dulera) [facility] Medical History Thyroid disorder Cervical cancer Wheezing Acute respiratory failure with hypoxia Viral pneumonia Surgical History No pertinent past surgical history Family History Mother Cancer Lung Social History Smoking Status: Current some day smoker tobacco type: cigarettes Tobacco: How many years used: 48 alcohol intake: current alcohol intake frequency: 0- (more content not included)... [facility] XR CHEST 2V FRONTAL/[facility]AT[facility] XR Chest PA and Lateralon IMPRESSION: No acute radiographic abnormality. Data Services Developer: RICCO Transcribe Date/Time: Sep 08 2023 12:15P Dictated by : NILES MACARIO MD This examination was interpreted and the report reviewed and electronically signed by: NILES MACARIO MD on Sep 08 2023 12:16PM [facility] DIVISION OF RADIOLOGY * * *Final Report* * * DATE OF EXAM: Sep 08 2023 12:11PM WOX [id number] - XR CHEST 2V FRONTAL/LAT / PROCEDURE REASON: Acute cough * * * * Physician Interpretation * * * * EXAMINATION: CHEST RADIOGRAPH (2 VIEW FRONTAL & LATERAL) CLINICAL HISTORY: Acute cough MQ: [id number] EXAM DATE/TIME: 09/08/2023 12:11 PM COMPARISON: Chest x-ray on 08/31/2008 RESULT: Lines, tubes, and devices: None. Lungs and pleura: No consolidation. No lung mass. No pleural effusion. No pneumothorax. Cardiomediastinal silhouette: Normal cardiomediastinal silhouette. Bones and soft tissues: The spine shows degenerative changes. DIVISION OF RADIOLOGY Provider, [facility] - 09/08/2023 * * *Final Report* * * DATE OF EXAM: Sep 08 2023 12:11PM WOX [id number] - XR CHEST 2V FRONTAL/LAT / PROCEDURE REASON: Acute cough * * * * Physician Interpretation * * * * EXAMINATION: CHEST RADIOGRAPH (2 VIEW FRONTAL & LATERAL) CLINICAL HISTORY: Acute cough MQ: [id number] EXAM DATE/TIME: 09/08/2023 12:11 PM COMPARISON: Chest x-ray on 08/31/2008 RESULT: Lines, tubes, and devices: None. Lungs and pleura: No consolidation. No lung mass. No pleural effusion. No pneumothorax. Cardiomediastinal silhouette: Normal cardiomediastinal silhouette. Bones and soft tissues: The spine shows degenerative changes. IMPRESSION IMPRESSION: No acute radiographic abnormality. Data Services Developer: PSC[employer] Transcribe Date/Time: Sep 08 2023 12:15P Dictated by : NILES MACARIO MD This examination was interpreted and the report reviewed and electronically signed by: NILES MACARIO MD on Sep 08 2023 12:16PM EST [facility] Radiology Study observation (narrative) [facility] XR Chest PA and LateralOrder ed By: [facility] Provider on 09-08-2023 [facility] Absolute lymphocyte counton 08-08-2022 Lymphocytes Auto (Unsp spec) [#/Vol] 1.51 10*3/uL 0.83-4.51 [facility] Work Phone: Basophil percentageon 2021 Basophil percentage 0 SEEN /hpf 0-5 [facility] Work Phone: Basophils/100 WBC (Bld) 0.5 % 0-1 [facility] Work Phone: Chloride [Moles/Vol] 105 mmol/L 98-107 [facility] Work Phone: Eosinophils/100 WBC (Bld) 3.2 % 0-5 [facility] Work Phone: Glucose [Mass/Vol] 87 mg/dL 74-106 [facility] Work Phone: Neutrophils (Bld) [#/Vol] 3.6 10*3/uL 2.0-7.7 [facility] Work Phone: Neutrophils/100 WBC (Bld) 59.1 % 47-70 [facility] Work Phone: Potassium [Moles/Vol] 4.0 mmol/L 3.5-5.1 [facility] Work Phone: Comment on above: Moderate Hemolysis, Result may be falsely increased. Sodium [Moles/Vol] 138 mmol/L 136-145 [facility] Work Phone: WBC (Bld) [#/Vol] 6.0 10*3/uL 4.4-11.0 [facility] Work Phone: Bilirubin Test strip Ql (U)o n 08-08-2022 Bilirubin Ql (U) Negative Negative [facility] Work Phone: Blood erythrocytes count (nu mber/volume)on 08-08-2022 RBC (Bld) [#/Vol] 4.66 10*6/uL 4.2-5.4 [facility] Work Phone: Blood hemoglobin measurement (mass/volume)on 08-08-2022 Hemoglobin (Bld) [Mass/Vol] 15.3 g/dL 12.0-15.0 [facility] Work Phone: Blood lymphocytes/100 leukoc yteson 08-08-2022 Lymphocytes/100 WBC (Bld) 25.1 % 19-41 [facility] Work Phone: Blood monocytes/100 leukocyt eson 08-08-2022 Monocytes/100 WBC (Bld) 11.8 % 0-10 [facility] Work Phone: Blood platelet mean volumeon 08-08-2022 Platelet mean volume (Bld) [Entitic vol] 10.9 fL 6.2-12.0 [facility] Work Phone: Determination of erythrocyte mean corpuscular volume (MCV)on 08-08-2022 MCV (RBC) [Entitic vol] 96.4 fL 81-99 [facility] Work Phone: Hematocrit Auto (Bld) [Volum e fraction]on 08-08-2022 Hematocrit (Bld) [Volume fraction] 44.9 % 37-47 [facility] Work Phone: Ketones Test strip Ql (U)on 08-08-2022 Ketones Ql (U) Negative Negative [facility] Work Phone: Laboratory - Chemistry and C hemistry - challengeon 08-08-2022 CO2 [Moles/Vol] 28.0 mmol/L 21.0-32.0 [facility] Work Phone: Urea nitrogen/Creatinine [Mass ratio] 12.2 mg/mg 10-20 [facility] Work Phone: Laboratory - Hematology and Cell countson 08-08-2022 Erythrocyte distribution width (RBC) [Entitic vol] 45.1 fL 35.1-43.9 [facility] Work Phone: Erythrocyte distribution width (RBC) [Ratio] 12.7 % 11.6-14.6 [facility] Work Phone: Immature granulocytes/100 WBC (Bld) 0.300 % 0.0-0.9 [facility] Work Phone: Comment on above: IG% - Immature Granu locytes (promyelocytes, myelocytes and metamyelocytes) > 1% indicates that a LEFT SHIFT is Present. MCH (RBC) [Entitic mass] 32.8 pg 27.0-32.0 [facility] Work Phone: Nucleated RBC/100 WBC (Bld) [Ratio] 0 % 0-5 [facility] Work Phone: MCHC Auto (RBC) [Mass/Vol]on 08-08-2022 MCHC (RBC) [Mass/Vol] 34.1 g/dL 32-36 [facility] Work Phone: Mucus LM Ql (Urine sed)on Mucus Ql (Urine sed) 0 SEEN [facility]: Nitrite Test strip Ql (U)on 08-08-2022 Nitrite Ql (U) Negative Negative [facility] Work Phone: No Panel Informationon 08-08 Estimated Creatinine Clearance Calc 66.22 ml/min [facility] Work Phone: Estimated GFR (MDRD) Amer 90 mL/min >60 [facility] Work Phone: Comment on above: GFR Calc Estimated GFR (MDRD) Non-Af Amer 75 mL/min >60 [facility] Work Phone: Comment on above: Non- GFR Calc Thyroid Stimulating Hormone (TSH) 0.03 uIU/mL 0.358-3.74 [facility] Work Phone: Troponin I High Sensitivity 10 pg/mL 3.0-54.0 [facility] Work Phone: Comment on above: Please Note: New [place] t Units and Gender Specific Reference Ranges. For more information see Policy Stat Procedure [place] High Sensitivity Troponin (TNIH) and attachments. Platelets bldon 08-08-2022 Platelets (Bld) [#/Vol] 238 10*3/uL 150-450 [facility] Work Phone: Protein Test strip Ql (U)on 08-08-2022 Protein Ql (U) Negative Negative [facility] Work Phone: Serum or plasma calcium lisa urement (mass/volume)on 08-08-2022 Calcium [Mass/Vol] 9.2 mg/dL 8.5-10.1 [facility] Work Phone: Serum or plasma creatinine m easurement (mass/volume)on 08-08-2022 Creatinine [Mass/Vol] 0.82 mg/dL 0.55-1.02 [facility] Work Phone: Comment on above: The validity of the calculated GFR & GFRAA in patients over 70 years has not been determined. Clinical correlation is essential. Serum or plasma urea nitroge n measurement (mass/volume)on 08-08-2022 Urea nitrogen [Mass/Vol] 10 mg/dL 7-18 [facility] Work Phone: Squamous epithelial cells de tection in urine sediment by light microscopyon 08-08-2022 Epithelial cells.squamous LM Ql (Urine sed) 0-5 SEEN /hpf 5-10 [facility] Work Phone: Thin prep Papanicolaou smear with manual screeningon 08-08-2022 Thin prep Papanicolaou smear with manual screening 5 5-15 [facility] Work Phone: Urine blood detectionon 07-30 RBC Ql (U) Negative Negative [facility] Work Phone: RBC Ql (U) 0 SEEN /hpf 0-5 [facility] Work Phone: Urine clarityon 08-08-2022 Clarity (U) Clear Clear [facility] Work Phone: Urine color determinationon 08-08-2022 Color (U) Yellow Yellow [facility] Work Phone: Urine glucose detectionon Glucose Ql (U) Normal mg/dl Normal [facility] Work Phone: Urine leukocyte esterase det ection by dipstickon 08-08-2022 Leukocyte esterase Test strip Ql (U) Negative Negative [facility] Work Phone: Urine pHon 08-08-2022 pH (U) 7.0 [pH] 5.0 - 8.0 [facility] Work Phone: Urine sediment bacteria coun t by microscopy (number/high power field)on 08-08-2022 Bacteria LM.HPF (Urine sed) [#/Area] 0 /[HPF] None Seen [facility] Work Phone: Urine specific gravity measu rementon 08-08-2022 Specific gravity (U) [Rel density] 1.005 1.002-1.030 [facility] Work Phone: Urobilinogen Auto test strip Ql (U)on 08-08-2022 Urobilinogen Ql (U) Normal mg/dl Normal [facility] Work Phone: Vital Signs Date Time Vital Sign Value Performing Clinician Facility 08-02-2025 11:41-0400 Body mass index (BMI) [Ratio] 29.33 kg/m2 Christopher Suh APRN.STAGE SETTING PAINTER APPRENTICE Work Phone: [facility] 08-02-2025 11:41-0400 Body temperature 97.3 [degF] Christopher Suh APRN.STAGE SETTING PAINTER APPRENTICE Work Phone: [facility] 08-02-2025 11:41-0400 Body weight 67 kg Christopher Suh APRN.STAGE SETTING PAINTER APPRENTICE Work Phone: [facility] 08-02-2025 11:41-0400 Diastolic blood pressure 71 mm[Hg] Christopher Suh APRN.STAGE SETTING PAINTER APPRENTICE Work Phone: [facility] 08-02-2025 11:41-0400 Heart rate 60 /min Christopher Suh APRN.STAGE SETTING PAINTER APPRENTICE Work Phone: [facility] 08-02-2025 11:41-0400 SaO2% (BldA) [Mass fraction] 98 % Christopher Suh APRN.STAGE SETTING PAINTER APPRENTICE Work Phone: [facility] 08-02-2025 11:41-0400 Systolic blood pressure 130 mm[Hg] Christopher Suh APRN.STAGE SETTING PAINTER APPRENTICE Work Phone: [facility] 07-27-2025 11:53-0400 Body mass index (BMI) [Ratio] 41.72 kg/m2 Donovan Romeo APRN.STAGE SETTING PAINTER APPRENTICE Work Phone: [facility] 07-27-2025 11:53-0400 Body temperature 98.01 [degF] Donovan Romeo APRN.STAGE SETTING PAINTER APPRENTICE Work Phone: [facility] 07-27-2025 11:53-0400 Body weight 95.3 kg Donovan Romeo APRN.STAGE SETTING PAINTER APPRENTICE Work Phone: [facility] 07-27-2025 11:53-0400 Diastolic blood pressure 70 mm[Hg] Donovan Romeo APRN.STAGE SETTING PAINTER APPRENTICE Work Phone: [facility] 07-27-2025 11:53-0400 Heart rate 74 /min Donovan Romeo APRN.STAGE SETTING PAINTER APPRENTICE Work Phone: [facility] 07-27-2025 11:53-0400 Respiratory rate 16 /min Donovan Romeo APRN.STAGE SETTING PAINTER APPRENTICE Work Phone: [facility] 07-27-2025 11:53-0400 SaO2% (BldA) [Mass fraction] 98 % Donovan Romeo APRN.STAGE SETTING PAINTER APPRENTICE Work Phone: [facility] 07-27-2025 11:53-0400 Systolic blood pressure 120 mm[Hg] Donovan Romeo APRN.STAGE SETTING PAINTER APPRENTICE Work Phone: [facility] 03-08-2025 13:45-0400 Body height 149.[address] Jennifer Kulkarni MD Work Phone: [facility] 03-08-2025 13:45-0400 Body weight 63.[address] Jennifer Kulkarni MD Work Phone: [facility] 03-08-2025 13:45-0400 Heart rate 72 /min Dr. Jennifer Kulkarni MD Work Phone: [facility] 03-08-2025 13:45-0400 SaO2% (BldA) [Mass fraction] 98 % Dr. Jennifer Kulkarni MD Work Phone: [facility] 02-19-2025 12:05-0400 Body height 151.1 cm Jennifer Kulkarni MD Work Phone: [facility] 02-19-2025 12:05-0400 Body mass index (BMI) [Ratio] 28.06 kg/m2 Jennifer Kulkarni MD Work Phone: [facility] 02-19-2025 12:05-0400 Body weight 64.1 kg Jennifer Kulkarni MD Work Phone: [facility] 02-19-2025 12:05-0400 Diastolic blood pressure 84 mm[Hg] Jennifer Kulkarni MD Work Phone: [facility] 02-19-2025 12:05-0400 Heart rate 64 /min Jennifer Kulkarni MD Work Phone: [facility] 02-19-2025 12:05-0400 Respiratory rate 16 /min Jennifer Kulkarni MD Work Phone: [facility] 02-19-2025 12:05-0400 Systolic blood pressure 122 mm[Hg] Jennifer Kulkarni MD Work Phone: [facility] 07-04-2024 15:51-0400 Body weight 59.8 kg Jennifer Kulkarni MD Work Phone: [facility] 07-04-2024 15:51-0400 Diastolic blood pressure 74 mm[Hg] Jennifer Kulkarni MD Work Phone: [facility] 07-04-2024 15:51-0400 Heart rate 68 /min Jennifer Kulkarni MD Work Phone: [facility] 07-04-2024 15:51-0400 Respiratory rate 18 /min Jennifer Kulkarni MD Work Phone: [facility] 07-04-2024 15:51-0400 Systolic blood pressure 112 mm[Hg] Jennifer Kulkarni MD Work Phone: [facility] 01-04-2024 15:40-0500 Body weight 57.52 kg Jennifer Kulkarni MD Work Phone: [facility] 01-04-2024 15:40-0500 Diastolic blood pressure 72 mm[Hg] Jennifer Kulkarni MD Work Phone: [facility] 01-04-2024 15:40-0500 Heart rate 74 /min Jennifer Kulkarni MD Work Phone: [facility] 01-04-2024 15:40-0500 Respiratory rate 16 /min Jennifer Kulkarni MD Work Phone: [facility] 01-04-2024 15:40-0500 Systolic blood pressure 120 mm[Hg] Jennifer Kulkarni MD Work Phone: [facility] 09-08-2023 11:45-0400 Body temperature 98.1 [degF] Travis Bryant FINGERER.STAGE SETTING PAINTER APPRENTICE Work Phone: [facility] 09-08-2023 11:45-0400 Body weight 58.97 kg Travis Bryant FINGERER.STAGE SETTING PAINTER APPRENTICE Work Phone: [facility] 09-08-2023 11:45-0400 Diastolic blood pressure 74 mm[Hg] Travis Pendlebury FINGERER.STAGE SETTING PAINTER APPRENTICE Work Phone: [facility] 09-08-2023 11:45-0400 Heart rate 78 /min [facility] F[facility].STAGE SETTING PAINTER APPRENTICE Work Phone: [facility] 09-08-2023 11:45-0400 Respiratory rate 16 /min [facility]ncio [facility] FINGERER.STAGE SETTING PAINTER APPRENTICE Work Phone: [facility] 09-08-2023 11:45-0400 SaO2% (BldA) [Mass fraction] 100 % [facility] FINGERER.STAGE SETTING PAINTER APPRENTICE Work Phone: [facility] 09-08-2023 11:45-0400 Systolic blood pressure 122 mm[Hg] [facility] FINGERER.STAGE SETTING PAINTER APPRENTICE Work Phone: [facility] 07-02-2023 16:05-0400 Body weight 57.47 kg Jennifer Kulkarni MD Work Phone: [facility] 07-02-2023 16:05-0400 Diastolic blood pressure 72 mm[Hg] Jennifer Kulkarni MD Work Phone: [facility] 07-02-2023 16:05-0400 Heart rate 74 /min Jennifer Kulkarni MD Work Phone: [facility] 07-02-2023 16:05-0400 Respiratory rate 16 /min Jennifer Kulkarni MD Work Phone: [facility] 07-02-2023 16:05-0400 Systolic blood pressure 120 mm[Hg] Jennifer Kulkarni MD Work Phone: [facility] 04-02-2023 09:52-0400 Diastolic blood pressure 94 mm[Hg] Jennifer Kulkarni MD Work Phone: [facility] 04-02-2023 09:52-0400 Systolic blood pressure 148 mm[Hg] Jennifer Kulkarni MD Work Phone: [facility] 04-02-2023 09:49-0400 Body weight 58.6 kg Jennifer Kulkarni MD Work Phone: [facility] 04-02-2023 09:49-0400 Heart rate 62 /min Jennifer Kulkarni MD Work Phone: [facility] 04-02-2023 09:49-0400 Respiratory rate 16 /min Jennifer Kulkarni MD Work Phone: [facility] 02-08-2023 07:54-0400 Body height 149.[address] Jennifer Kulkarni Work Phone: [facility] 02-08-2023 07:47-0400 Body mass index (BMI) [Ratio] 26.2 kg/m2 Dr. Jennifer Kulkarni Work Phone: [facility] 02-08-2023 07:47-0400 Body temperature 96.5 [degF] Dr. Jennifer Kulkarni Work Phone: [facility] 02-08-2023 07:47-0400 Body weight 58.[address] Jennifer Kulkarni Work Phone: [facility] 02-08-2023 07:47-0400 Diastolic blood pressure 88 mm[Hg] Dr. Jennifer Kulkarni Work Phone: [facility] 02-08-2023 07:47-0400 Heart rate 65 /min Dr. Jennifer Kulkarni Work Phone: [facility] 02-08-2023 07:47-0400 Respiratory rate 18 /min Dr. Jennifer Kulkarni Work Phone: [facility] 02-08-2023 07:47-0400 SaO2% (BldA) [Mass fraction] 99 % Dr. Jennifer Kulkarni Work Phone: [facility] 02-08-2023 07:47-0400 Systolic blood pressure 160 mm[Hg] Dr. Jennifer Kulkarni Work Phone: [facility] 10-07-2022 17:04-0500 Body weight 58.51 kg Meg Finley APRN.CNP Work Phone: [facility] 10-07-2022 17:04-0500 Diastolic blood pressure 72 mm[Hg] Meg Ordonezhof FINGERER.STAGE SETTING PAINTER APPRENTICE Work Phone: [facility] 10-07-2022 17:04-0500 Heart rate 79 /min Meg Pelaezf FINGERER.STAGE SETTING PAINTER APPRENTICE Work Phone: [facility] 10-07-2022 17:04-0500 Respiratory rate 16 /min Meg Ordonezhof FINGERER.STAGE SETTING PAINTER APPRENTICE Work Phone: [facility] 10-07-2022 17:04-0500 SaO2% (BldA) [Mass fraction] 98 % Meg Ordonezhof FINGERER.STAGE SETTING PAINTER APPRENTICE Work Phone: [facility] 10-07-2022 17:04-0500 Systolic blood pressure 140 mm[Hg] Meg Ordonezhof FINGERER.STAGE SETTING PAINTER APPRENTICE Work Phone: [facility] 08-08-2022 10:59-0400 Diastolic blood pressure 49 mm[Hg] Dr. Jennifer Kulkarni Work Phone: [facility] Work Phone: 08-08-2022 10:59-0400 Heart rate 64 /min Dr. Jennifer Kulkarni Work Phone: [facility] Work Phone: 08-08-2022 10:59-0400 Systolic blood pressure 106 mm[Hg] Dr. Jennifer Kulkarni Work Phone: [facility] Work Phone: 08-08-2022 10:32-0400 Respiratory rate 20 /min Dr. Jennifer Kulkarni Work Phone: [facility] Work Phone: 08-08-2022 10:32-0400 SaO2% (BldA) [Mass fraction] 97 % Dr. Jennifer Kulkarni Work Phone: [facility] Work Phone: 08-08-2022 08:25-0400 Body height 149.[address] Jennifer Kulkarni Work Phone: [facility] Work Phone: 08-08-2022 08:25-0400 Body mass index (BMI) [Ratio] 26.2 kg/m2 Dr. Jennifer Kulkarni Work Phone: [facility] Work Phone: 08-08-2022 08:25-0400 Body temperature 97.9 [degF] Dr. Jennifer Kulkarni Work Phone: [facility] Work Phone: 08-08-2022 08:25-0400 Body weight 58.[address] Jennifer Kulkarni Work Phone: [facility] Work Phone: 07-23-2022 05:53-0400 Body mass index (BMI) [Ratio] 25.6 kg/m2 Dr. Jennifer Kulkarni Work Phone: [facility] Work Phone: 07-23-2022 05:53-0400 Body temperature 97.4 [degF] Dr. Jennifer Kulkarni Work Phone: [facility] Work Phone: 07-23-2022 05:53-0400 Body weight 59.[address] Jennifer Kulkarni Work Phone: [facility] Work Phone: 07-23-2022 05:53-0400 Diastolic blood pressure 71 mm[Hg] Dr. Jennifer Kulkarni Work Phone: [facility] Work Phone: 07-23-2022 05:53-0400 Heart rate 74 /min Dr. Jennifer Kulkarni Work Phone: [facility] Work Phone: 07-23-2022 05:53-0400 Respiratory rate 16 /min Dr. Jennifer Kulkarni Work Phone: [facility] Work Phone: 07-23-2022 05:53-0400 SaO2% (BldA) [Mass fraction] 95 % Dr. Jennifer Kulkarni Work Phone: [facility] Work Phone: 07-23-2022 05:53-0400 Systolic blood pressure 110 mm[Hg] Dr. Jennifer Kulkarni Work Phone: [facility] Work Phone: Encounters Encounter Date Encounter Type Care Provider Facility Start: 08-23-2025 End: 08-23-2025 ambulatory JENNIFER KULKARNI Facility:[facility] Start: 08-17-2025 End: 08-17-2025 ambulatory JENNIFER KULKARNI Facility:[facility] Start: 08-08-2025 End: 08-08-2025 ambulatory Jennifer Kulkarni MD Work Phone: [facility] Comment on above: Yeast infection Start: 08-02-2025 End: 08-02-2025 Patient encounter procedure Christopher Suh APRN.STAGE SETTING PAINTER APPRENTICE Work Phone: [facility] Comment on above: Bacterial sinusitis (Primary Dx) Start: 08-02-2025 End: 08-02-2025 ambulatory CHRISTOPHER SUH Facility:[facility] Start: 07-27-2025 End: 07-27-2025 Subsequent hospital visit by physician Xr [facility] Work Phone: Radiology Comment on above: Acute cough [R05.1] Start: 07-27-2025 End: 07-27-2025 Patient encounter procedure Donovan Romeo APRN.STAGE SETTING PAINTER APPRENTICE Work Phone: [facility] Comment on above: Bacterial sinusitis (Primary Dx); Acute cough Start: 07-27-2025 End: 07-28-2025 ambulatory JENNIFER KULKARNI Facility:[facility] Start: 07-10-2025 End: 08-10-2025 ambulatory Jennifer Kulkarni MD Work Phone: [facility] Start: 06-18-2025 End: 06-18-2025 Refill Jennifer Kulkarni MD Work Phone: [facility] Comment on above: Refill Request Start: 04-19-2025 End: 04-19-2025 ambulatory Jennifer Kulkarni Facility:[facility] Start: 03-12-2025 ambulatory Gini Paiz Facili ty:[facility] Start: 03-12-2025 Non-patient / Non-visit Dr. Parminder dorsey DO -[facility] Start: 03-09-2025 End: 03-09-2025 [facility]ulatory [facility] [place] Start: 03-09-2025 End: 03-09-2025 Patient encounter procedure Mary Ascencio MA [facility] [place] Comment on above: Population Health Na vigation Outreach (Cologuard Outreach) Start: 03-08-2025 End: 03-08-[address] Jennifer Kulkarni MD Work Phone: [facility] Work Phone: Start: 03-08-2025 End: 03-08-2025 Patient encounter procedure Gini Paiz NP-C -Pulmonary Services/Neurology Work Phone: Start: 03-08-2025 End: 03-08-2025 ambulatory Jennifer Kulkarni Facility:[facility] Start: 02-24-2025 End: 02-24-[address] Jennifer Kulkarni MD Work Phone: [facility] Work Phone: Start: 02-24-2025 End: 02-24-2025 Patient encounter procedure Gini Paiz NP-C -Cat Scan, [facility] Work Phone: Start: 02-24-2025 End: 02-24-2025 ambulatory Gini Paiz Facility:[facility] Start: 02-19-2025 End: 02-19-2025 ambulatory JENNIFER KULKARNI Facility:[facility] Start: 02-19-2025 End: 02-19-2025 Patient encounter procedure Jennifer Kulkarni MD Work Phone: [facility] Comment on above: Hypothyroidism, unsp ecified type (Primary Dx); Screening for colon cancer; Encounter for Medicare annual wellness exam; Chronic obstructive pulmonary disease, unspecified COPD type (HCC); Smoker; Hyperlipidemia, unspecified hyperlipidemia type Start: 02-15-2025 End: 02-15-[address] Jennifer Kulkarni MD Work Phone: [facility] Work Phone: Start: 02-15-2025 End: 02-15-2025 Patient encounter procedure Gini Paiz WEBMETHODS CONSULTANT-C -Pulmonary Services/Neurology Work Phone: Start: 02-15-2025 End: 02-15-2025 ambulatory Gini Paiz Facility:[facility] Start: 01-01-2025 End: 01-01-2025 ambulatory JENNIFER KULKARNI Facility:[facility] Start: 09-19-2024 End: 09-19-2024 ambulatory Jennifer Kulkarni Facility:[facility] Start: 07-06-2024 ambulatory Radha Pedersen am, PA-C Work Phone: Pulmonary Medicine Start: 07-04-2024 End: 07-04-2024 Patient encounter procedure Jennifer Kulkarni MD Work Phone: [facility] Comment on above: Hypothyroidism, unsp ecified type (Primary Dx); Chronic obstructive pulmonary disease, unspecified COPD type (HCC); Encounter for screening examination for other mental health and behavioral disorders Start: 06-13-2024 End: 06-13-2024 ambulatory Gini [facility] Facility:[facility] Start: 05-17-2024 Refill Jennifer vuong MD Work Phone: [facility] Comment on above: Refill Request Start: 02-15-2024 End: 02-15-[address] Jennifer Kulkarni Work Phone: [facility] Work Phone: Start: 02-15-2024 End: 02-15-[address] Jennifer Kulkarni [facility] Phone[facility] Work [facility]: Start: 01-04-2024 End: 01-04-2024 Patient encounter procedure Jennifer Kulkarni MD Work Phone: [facility] Comment on above: Hypothyroidism, unsp ecified type (Primary Dx); Smoker; Screening for lipid disorders; Chronic obstructive pulmonary disease, unspecified COPD type (HCC) Start: 11-05-2023 End: 11-05-[address] Jennifer Kulkarni Work Phone: [facility] Work Phone: Start: 09-08-2023 End: 09-08-2023 Subsequent hospital visit by physician [facility] Work Phone: Radiology Comment on above: Acute cough [R05.1] Start: 09-08-2023 End: 09-08-2023 Office outpatient visit 25 minutes Travis Bryant FINGERER.STAGE SETTING PAINTER APPRENTICE Work Phone: [facility] Comment on above: Acute cough (Primary Dx); COPD with exacerbation (HCC) Start: 07-02-2023 End: 07-02-2023 Patient encounter procedure Jennifer Kulkarni MD Work Phone: [facility] Comment on above: Hypothyroidism, unsp ecified type (Primary Dx); Smoker Start: 04-02-2023 End: 04-02-2023 Patient encounter procedure Jennifer Kulkarni MD Work Phone: [facility] Comment on above: Hypothyroidism, unsp ecified type (Primary Dx); Racing heart beat; Shaking Start: 02-18-2023 Telephone encounter Meg salas FINGERER.STAGE SETTING PAINTER APPRENTICE Work Phone: [facility] Comment on above: Results (Labs, thyro id ) Start: 02-08-2023 End: 02-08-[address] Jennifer Kulkarni Work Phone: [facility] Start: 02-05-2023 End: 02-05-[address] Jennifer Kulkarni Work Phone: [facility] Work Phone: Start: 02-05-2023 End: 02-05-[address] Jennifer Kulkarni Work Phone: [facility]-Cat Scan, [facility] Start: 12-31-2022 Telephone encounter Meg salas FINGERER.STAGE SETTING PAINTER APPRENTICE Work Phone: [facility] Comment on above: Results (Labs) Start: 10-07-2022 End: 10-07-2022 Patient encounter procedure Meg Finley FINGERER.STAGE SETTING PAINTER APPRENTICE Work Phone: [facility] Comment on above: Hypothyroidism, unsp ecified type (Primary Dx) Start: 09-03-2022 Telephone encounter Meg salas FINGERER.STAGE SETTING PAINTER APPRENTICE Work Phone: [facility] Comment on above: Appointment Start: 08-12-2022 Telephone encounter Meg salas FINGERER.STAGE SETTING PAINTER APPRENTICE Work Phone: [facility] Comment on above: Results; Orders Start: 08-10-2022 End: 08-10-2022 Patient encounter procedure Meg Finley FINGERER.STAGE SETTING PAINTER APPRENTICE Work Phone: [facility] Comment on above: Anxiety with depress ion (Primary Dx); Abnormal thyroid blood test Start: 08-10-2022 Telephone encounter Jennifer azul MD Work Phone: [facility] Comment on above: Appointment Start: 08-08-2022 End: 08-08-2022 Emergency department patient visit Dr. Jennifer Kulkarni Work Phone: [facility]Emergency Department Start: 07-23-2022 End: 07-23-[address] Jennifer Kulkarni Work Phone: [facility]Pulmonary Medicine [facility] Start: 05-27-2022 ambulatory Jennifer vuong MD Work Phone: Internal [facility] [place] Procedures Date Procedure Procedure Detail Performing Clinician Start: 07-27-2025 Radiologic exam ches t 2 views Donovan Romeo APRN.STAGE SETTING PAINTER APPRENTICE Work Phone: Start: 02-24-[address] Jennifer agarwal MD Work Phone: Start: 06-28-2024 Lipid 1996 panel - S kaya or Plasma Jennifer Kulkarni MD Work Phone: Start: 02-15-[address] Jennifer agarwal Work Phone: Start: 09-08-2023 Radiologic exam ches t 2 views Travis Bryant FINGERER.STAGE SETTING PAINTER APPRENTICE Work Phone: Start: 02-05-[address] Jennifer agarwal Work Phone: Start: 11-03-2013 Mammography Jennifer dawson MD Work Phone: Start: 02-01-2009 Lipid 1996 panel - S kaya or Plasma Travis Bryant FINGERER.STAGE SETTING PAINTER APPRENTICE Work Phone: Plan of Treatment Date Care Activity Detail Author Start: 06-28-2029 Lipid panel Lipid Screening [facility] Start: 06-28-2027 Diabetes Screening Diabetes Screenin g [facility] Start: 08-02-2026 Annual PCP Team Plating Stripper benjamin Disease Visit Annual PCP Team Chronic Disease Visit [facility] Start: 02-24-2026 Screening for malign ant neoplasm of lung Lung Cancer Screening [facility] Start: 02-19-2026 Annual PCP Team Plating Stripper benjamin Disease Visit Annual PCP Team Chronic Disease Visit [facility] Start: 02-19-2026 Covid-19 Vaccine ( season) Covid-19 Vaccine ( season) [facility] Comment on above: Postponed from 07/30 (Declined at this time) Start: 02-19-2026 Pneumococcal Vaccine : 50+ (1 of 2 - PCV) Pneumococcal Vaccine: 50+ (1 of 2 - PCV) [facility] Comment on above: Postponed from 10/10 (Declined at this time) Start: 02-19-2026 Screening for osteoporosis Bone Dens ity Screening [facility] Comment on above: Postponed from 10/10 (Declined at this time) Start: 08-23-2025 End: 08-23-2025 Patient encounter procedure 08/23/2025 11:00 AM EDT Office Visit [facility] [address], [place] [address] Jennifer Kulkarni MD [address] [place], [place] [id number] 6 mo f/u [facility] Comment on above: 6 mo f/u Start: 08-22-2025 End: 11-21-2025 Comprehensive metabolic 2000 panel - Serum or Plasma COMPREHENSIVE METABOLIC PANEL Lab Routine Hyperlipidemia, unspecified hyperlipidemia type Expected: 08/22/2025 (Approximate), Expires: 11/21/2025 [facility] Comment on above: Expected: 08/22/2025 (Approximate), Expires: 11/21/2025 Start: 08-22-2025 End: 11-21-2025 Lipid 1996 panel - Serum or Plasma LIPID PANEL, FASTING Lab Routine Hyperlipidemia, unspecified hyperlipidemia type Expected: 08/22/2025 (Approximate), Expires: 11/21/2025 [facility] Comment on above: Expected: 08/22/2025 (Approximate), Expires: 11/21/2025 Start: 08-22-2025 End: 11-21-2025 Thyrotropin [Units/volume] in Serum or Plasma THYROID STIMULATING HORMONE Lab Routine Hypothyroidism, unspecified type Expected: 08/22/2025 (Approximate), Expires: 11/21/2025 [facility] Comment on above: Expected: 08/22/2025 (Approximate), Expires: 11/21/2025 Start: 07-30-2025 Influenza vaccination Influenza Vacc ine (#1) [facility] Start: 07-04-2025 Annual PCP Team Plating Stripper benjamin Disease Visit Annual PCP Team Chronic Disease Visit [facility] Start: 07-04-2025 Anxiety Screening Anxiety Screening [facility] Start: 07-04-2025 Hepatitis C screening Hepatitis C [facility] Comment on above: Postponed from 10/10 (Declined at this time) Start: 07-04-2025 HIV screening HIV Screening [facility] Comment on above: Postponed from 10/10 (Declined at this time) Start: 07-04-2025 Pneumococcal vaccination Pneum ococcal Vaccine (1 of 2 - PCV) [facility] Comment on above: Postponed from 10/10 (Declined at this time) Start: 07-04-2025 RSV Vaccine (1 - 1-d ose 60+ series) RSV Vaccine (1 - 1-dose 60+ series) [facility] Comment on above: Postponed from 10/10 (Declined at this time) Start: 07-04-2025 RSV Vaccine (1 - Ris k 60-74 years 1-dose series) RSV Vaccine (1 - Risk 60-74 years 1-dose series) [facility] Comment on above: Postponed from 10/10 (Declined at this time) Start: 07-04-2025 Screening for malign ant neoplasm of breast Mammogram Screening [facility] Comment on above: Postponed from 11/03 (Declined at this time) Start: 07-04-2025 Shingrix Vaccine (1 of 2) Jackson grix Vaccine (1 of 2) [facility] Comment on above: Postponed from 10/10 (Declined at this time) Start: 02-09-2025 Screening for malign ant neoplasm of lung Lung Cancer Screening [facility] Start: 01-04-2025 Annual PCP Team Plating Stripper benjamin Disease Visit Annual PCP Team Chronic Disease Visit [facility] Start: 01-04-2025 Screening for malign ant neoplasm of colon Colorectal Cancer Screening [facility] Comment on above: Postponed from 10/10 (Declined at this time) Start: 01-04-2025 End: 04-05-2025 Thyrotropin [Units/volume] in Serum or Plasma THYROID STIMULATING HORMONE Lab Routine Hypothyroidism, unspecified type Expected: 01/04/2025 (Approximate), Expires: 04/05/2025 [facility] Work Phone: Comment on above: Expected: 01/04/2025 (Approximate), Expires: 04/05/2025 Start: 01-04-2025 End: 01-04-2025 Patient encounter procedure 01/04/2025 9:00 AM EST Office Visit Family [facility] [address] [place] [id number] Jennifer Kulkarni MD [address] [place] [id number] 6 month follow up Family [facility] Comment on above: 6 month follow up Start: 07-30-2024 Influenza vaccination Influenza Vacc ine (#1) [facility] Start: 07-04-2024 End: 07-04-2024 Patient encounter procedure 07/04/2024 4:00 PM EDT Office Visit Family [facility] [address] [place] [address] Jennifer Kulkarni MD [address] [place] [address] 6 month follow up [facility] Comment on above: 6 month follow up Start: 07-04-2024 End: 10-03-2024 Comprehensive metabolic 2000 panel - Serum or Plasma COMP METABOLIC PANEL Lab Routine Hypothyroidism, unspecified type Screening for lipid disorders Expected: 07/04/2024 (Approximate), Expires: 10/03/2024 [facility] Work Phone: Comment on above: Expected: 07/04/2024 (Approximate), Expires: 10/03/2024 Start: 07-04-2024 End: 10-03-2024 Lipid 1996 panel - Serum or Plasma LIPID PANEL BASIC Lab Routine Screening for lipid disorders Expected: 07/04/2024 (Approximate), Expires: 10/03/2024 [facility] Work Phone: Comment on above: Expected: 07/04/2024 (Approximate), Expires: 10/03/2024 Start: 07-04-2024 End: 10-03-2024 Thyrotropin [Units/volume] in Serum or Plasma TSH BLD Lab Routine Hypothyroidism, unspecified type Expected: 07/04/2024 (Approximate), Expires: 10/03/2024 [facility] Work Phone: Comment on above: Expected: 07/04/2024 (Approximate), Expires: 10/03/2024 Start: 07-02-2024 ANNUAL PCP TEAM JAWBONE BREAKER BENJAMIN DISEASE VISIT ANNUAL PCP TEAM CHRONIC DISEASE VISIT [facility] Start: 07-02-2024 COLORECTAL CANCER SCREENING COLORECTAL CANCER SCREENING [facility] Comment on above: Postponed from 10/10 (Declined at this time) Start: 07-02-2024 HEPATITIS C SCREENING HEPATITIS C [facility] Comment on above: Postponed from 10/10 (Declined at this time) Start: 07-02-2024 Hepatitis C screening Hepatitis C [facility] Comment on above: Postponed from 10/10 (Declined at this time) Start: 07-02-2024 HIV SCREENING HIV SCREENING [facility] Comment on above: Postponed from 10/10 (Declined at this time) Start: 07-02-2024 HIV screening HIV Screening [facility] Comment on above: Postponed from 10/10 (Declined at this time) Start: 07-02-2024 HPV TESTING HPV TESTING [facility] Comment on above: Postponed from 11/03 (Declined at this time) Start: 07-02-2024 Mammography [facility] Comment on above: Postponed from 11/03 (Declined at this time) Start: 07-02-2024 PAP TESTING PAP TESTING [facility] Comment on above: Postponed from 11/03 (Declined at this time) Start: 07-02-2024 Screening for malign ant neoplasm of breast Mammogram Screening [facility] Comment on above: Postponed from 11/03 (Declined at this time) Start: 07-02-2024 Screening for malign ant neoplasm of cervix [facility] Comment on above: Postponed from 11/03 (Declined at this time) Start: 07-02-2024 Screening for malign ant neoplasm of colon Colorectal Cancer Screening [facility] Comment on above: Postponed from 10/10 (Declined at this time) Start: 04-02-2024 ANNUAL PCP TEAM JAWBONE BREAKER BENJAMIN DISEASE VISIT ANNUAL PCP TEAM CHRONIC DISEASE VISIT [facility] Start: 01-02-2024 End: 03-03-2024 Thyrotropin [Units/volume] in Serum or Plasma TSH BLD Lab Routine Hypothyroidism, unspecified type Expected: 01/02/2024 (Approximate), Expires: 03/03/2024 [facility] Work Phone: Comment on above: Expected: 01/02/2024 (Approximate), Expires: 03/03/2024 Start: 01-02-2024 End: 03-03-2024 Thyroxine (T4) free [Mass/volume] in Serum or Plasma T4 FREE/FREE THYROX Lab Routine Hypothyroidism, unspecified type Expected: 01/02/2024 (Approximate), Expires: 03/03/2024 [facility] Work Phone: Comment on above: Expected: 01/02/2024 (Approximate), Expires: 03/03/2024 Start: 10-07-2023 ANNUAL PCP TEAM JAWBONE BREAKER BENJAMIN DISEASE VISIT ANNUAL PCP TEAM CHRONIC DISEASE VISIT [facility] Start: 08-10-2023 ANNUAL PCP TEAM JAWBONE BREAKER BENJAMIN DISEASE VISIT ANNUAL PCP TEAM CHRONIC DISEASE VISIT [facility] Start: 07-30-2023 Covid-19 Vaccine () Covid-19 Vaccine () [facility] Start: 07-30-2023 Influenza vaccination C [facility] Start: 07-03-2023 End: 09-02-2023 Thyrotropin [Units/volume] in Serum or Plasma TSH BLD Lab Routine Hypothyroidism, unspecified type Expected: 07/03/2023 (Approximate), Expires: 09/02/2023 [facility] Work Phone: Comment on above: Expected: 07/03/2023 (Approximate), Expires: 09/02/2023 Start: 05-21-2023 End: 07-21-2023 Thyrotropin [Units/volume] in Serum or Plasma TSH BLD Lab Routine Hypothyroidism, unspecified type Expected: 05/21/2023, Expires: 07/21/2023 [facility] Work Phone: Comment on above: Expected: 05/21/2023 , Expires: 07/21/2023 Start: 05-21-2023 End: 07-21-2023 Thyroxine (T4) free [Mass/volume] in Serum or Plasma T4 FREE/FREE THYROX Lab Routine Hypothyroidism, unspecified type Expected: 05/21/2023, Expires: 07/21/2023 [facility] Work Phone: Comment on above: Expected: 05/21/2023 , Expires: 07/21/2023 Start: 01-28-2023 End: 03-30-2023 THYROID PEROXIDASE ANTIBODY BLOOD THYROID PEROXIDASE ANTIBODY BLOOD Lab Routine Hypothyroidism, unspecified type Expected: 01/28/2023, Expires: 03/30/2023 [facility] Work Phone: Comment on above: Expected: 01/28/2023 , Expires: 03/30/2023 Start: 01-28-2023 End: 03-30-2023 Thyrotropin [Units/volume] in Serum or Plasma TSH BLD Lab Routine Hypothyroidism, unspecified type Expected: 01/28/2023, Expires: 03/30/2023 [facility] Work Phone: Comment on above: Expected: 01/28/2023 , Expires: 03/30/2023 Start: 01-28-2023 End: 03-30-2023 Thyroxine (T4) free [Mass/volume] in Serum or Plasma T4 FREE/FREE THYROX Lab Routine Hypothyroidism, unspecified type Expected: 01/28/2023, Expires: 03/30/2023 [facility] Work Phone: Comment on above: Expected: 01/28/2023 , Expires: 03/30/2023 Start: 01-07-2023 End: 03-09-2023 Thyrotropin [Units/volume] in Serum or Plasma TSH BLD Lab Routine Hypothyroidism, unspecified type Expected: 01/07/2023, Expires: 03/09/2023 [facility] Work Phone: Comment on above: Expected: 01/07/2023 , Expires: 03/09/2023 Start: 01-07-2023 End: 03-09-2023 Thyroxine (T4) free [Mass/volume] in Serum or Plasma T4 FREE/FREE THYROX Lab Routine Hypothyroidism, unspecified type Expected: 01/07/2023, Expires: 03/09/2023 [facility] Work Phone: Comment on above: Expected: 01/07/2023 , Expires: 03/09/2023 Start: 09-11-2022 End: 11-11-2022 Thyrotropin [Units/volume] in Serum or Plasma TSH BLD Lab Routine Hypothyroidism, unspecified type Expected: 09/11/2022, Expires: 11/11/2022 [facility] Work Phone: Comment on above: Expected: 09/11/2022 , Expires: 11/11/2022 Start: 08-10-2022 End: 2022 THYROID PEROXIDASE ANTIBODY BLOOD [facility] Work Phone: Comment on above: Expected: 08/10/2022 , Expires: 2022 Start: 08-10-2022 End: 2022 Thyrotropin [Units/volume] in Serum or Plasma [facility] Work Phone: Comment on above: Expected: 08/10/2022 , Expires: 2022 Start: 08-10-2022 End: 2022 Thyroxine (T4) free [Mass/volume] in Serum or Plasma [facility] Work Phone: Comment on above: Expected: 08/10/2022 , Expires: 2022 Start: 08-10-2022 End: 2022 Triiodothyronine (T3) [Mass/volume] in Serum or Plasma [facility] Work Phone: Comment on above: Expected: 08/10/2022 , Expires: 2022 Start: 07-30-2022 Influenza vaccination C [facility] Start: 01-27-2022 ANNUAL PCP TEAM JAWBONE BREAKER BENJAMIN DISEASE VISIT ANNUAL PCP TEAM CHRONIC DISEASE VISIT [facility] Start: 09-04-2021 COVID-19 VACCINE (3 - Booster for Moderna series) COVID-19 VACCINE (3 - Booster for Moderna series) [facility] Start: 05-30-2021 COVID-19 VACCINE (3 - Booster for Moderna series) COVID-19 VACCINE (3 - Booster for Moderna series) [facility] Start: 2019 RSV Vaccine (1 - 1-d ose 60+ series) RSV Vaccine (1 - 1-dose 60+ series) [facility] Start: 2019 RSV Vaccine (1 - Ris k 60-74 years 1-dose series) RSV Vaccine (1 - Risk 60-74 years 1-dose series) [facility] Start: 11-03-2018 HPV TESTING HPV TESTING [facility] Start: 11-03-2018 PAP TESTING PAP TESTING [facility] Start: 11-03-2018 Screening for malign ant neoplasm of cervix Cervical Cancer Screening [facility] Start: 07-08-2016 DIABETES [facility]CREEN [facility] Start: 07-08-2016 Diabetes Screening Diabetes Screenin g [facility] Start: 11-03-2014 Mammography MAMMOGRAM [facility] Start: 11-03-2014 Screening for malign ant neoplasm of breast Mammogram Screening [facility] Start: 02-16-2014 COLORECTAL CANCER SCREENING COLORECTAL CANCER SCREENING [facility] Start: 02-16-2014 FECAL OCCULT BLOOD FECAL OCCULT BLOO D [facility] Start: 02-16-2014 Screening for malign ant neoplasm of colon [facility] Start: 02-01-2014 Lipid 1996 panel - S kaya or Plasma Lipid Screening [facility] Start: 02-01-2014 Lipid panel Lipid Screening [facility] Start: 02-01-2014 LIPID SCREEN LIPID SCREEN [facility] Start: 2009 Influenza vaccination LUNG CANCER [facility] Start: 2009 Screening for malign ant neoplasm of lung Lung Cancer Screening [facility] Start: 2009 SHINGRIX VACCINE (1 of 2) JACKSON GRIX VACCINE (1 of 2) [facility] Start: 12-21-2006 Urine microalbumin profile [facility] Start: 2004 COLOGUARD (FIT-DNA) COLOGUARD (FIT-D NA) [facility] Start: 2004 Colonoscopy COLONOSCOPY [facility] Start: [address] COLONOGRAPHY [facility] Start: 2004 Screening for malign ant neoplasm of colon [facility] Start: 2004 SIGMOIDOSCOPY SIGMOIDOSCOPY [facility] Start: 1989 Zoledronic acid therapy Alpha- 1 Antitrypsin Deficiency Screening [facility] Start: 1977 HEPATITIS C SCREENING HEPATITIS C [facility] Start: 1977 Hepatitis C screening Hepatitis C [facility] Start: 1977 HIV SCREENING HIV SCREENING [facility] Start: 1977 HIV screening HIV Screening [facility] Start: 1977 Spirometry Spirometry [facility] Start: 1965 PNEUMOCOCCAL (1 - PCV) PNEUMOCOCCAL (1 - PCV) [facility] Start: 1965 Pneumococcal vaccination [facility] COLOGUARD COLOGUARD Lab Ro utine Screening for colon cancer Ordered: 02/19/2025 [facility] Work Phone: Comment on above: Ordered: 02/19/2025 CT Chest [facility] End: 08-09-2026 DBT Breast - bilateral screening BRAIN SCREENING [facility] Radiology Routine Encounter for screening mammogram for breast cancer 1 Occurrences starting 07/10/2025 until 08/09/2026 [facility] Work Phone: Comment on above: 1 Occurrences starti ng 07/10/2025 until 08/09/2026 Measurement of respi ratory function [facility] Patient Education ED Anxiety [facility] c[facility] ED Near-Fainting, Uncertain Cause [facility] Work Phone: Patient referral [facility] Work Phone: End: 06-26-2023 Screening mammography bi 2-view breast inc cad BRAIN SCREENING Radiology Routine Encounter for screening mammogram for breast cancer 1 Occurrences starting 05/27/2022 until 06/26/2023 [facility] Work Phone: Comment on above: 1 Occurrences starti ng 05/27/2022 until 06/26/2023 [facility] Immunizations Immunization Date Immunization Notes Care Provider [facility] 09-15-2024 influenza virus vaccine, unspecified formulation Jennifer Kulkarni MD Work Phone: [facility] 10-30-2023 influenza, injectabl e, quadrivalent, preservative free Jennifer Kulkarni MD Work Phone: [facility] 10-30-2023 influenza virus vaccine, unspecified formulation Jennifer Kulkarni MD Work Phone: [facility] 09-24-2022 influenza, injectabl e, quadrivalent, preservative free Jennifer Kulkarni MD Work Phone: [facility] 09-24-2022 influenza virus vaccine, unspecified formulation Travis Bryant APRN.CNP Work Phone: [facility] 12-31-2020 influenza, injectabl e, quadrivalent, preservative free Dr. Jennifer Kulkarni Work Phone: [facility] 12-31-2020 influenza, seasonal, injectable Dr. Jennifer Kulkarni Work Phone: [facility] 09-02-2011 influenza virus vaccine, unspecified formulation Jennifer Kulkarni MD Work Phone: [facility] Work Phone: 12-20-2006 tetanus and diphther ia toxoids, adsorbed, preservative free, for adult use (2 Lf of tetanus toxoid and 2 Lf of diphtheria toxoid) Jennifer Kulkarni MD Work Phone: [facility] Work Phone: Payers Date Payer Category Payer Private Health Insurance [facility] [id number] 2024 Medicare MEDICARE [id number] 2024 Medicare [id number] 2024 Unknown [id number] 2024 Self-pay [id number] 2024 Unknown [id number] 2021 Medicaid [id number] 2021 Unknown [employer] [place] [employer] SELF FUNDED [id number] 2021-Present [phone] [address] [place] [address] PPO [id number] 2021 Unknown [id number] Unknown [facility] [id number] Unknown [id number] Unknown [id number] Unknown [id number] Unknown [id number] Unknown [id number] Unknown [id number] Unknown [id number] Unknown [id number] Unknown [id number] Social History Date Type Detail Facility Start: 01-27-2021 Tobacco smoking stat us [facility] Ex-smoker [facility] History of tobacco use Cigarette Smoker C [facility] Start: 01-27-2021 End: 07-02-2023 Cigarettes smoked current (pack per day) - Reported 0.5 [facility] Start: 01-27-2021 End: 02-19-2025 Tobacco use and exposure Smokeless tobacco non-user [facility] Start: 12-01-2021 End: 02-19-2025 Alcohol intake Current drinker of alcohol (finding) [facility] Start: 1960 Sex Assigned At Not on file C [facility] Start: 08-08-2022 End: 11-12-2023 Tobacco smoking status PAIS Unknown if ever smoked [facility] Start: 12-30-2020 Occasional [facility] Start: 12-30-2020 None [facility] Start: 12-30-2020 Roommate [facility] Start: 01-20-2021 Cigarettes [facility] Start: 1960 Sex Assigned At Female [facility] History of tobacco use Current smoker [facility] Start: 07-31-2022 End: 10-07-2022 Exposure to SARS-CoV-2 (event) Not sure [facility] Start: 08-10-2022 End: 02-19-2025 Tobacco smoking status NHIS Smokes tobacco daily [facility] Start: 07-02-2023 End: 02-19-2025 Tobacco use panel [facility] Start: 10-30-2012 National Score (1-10 0), lower number is lower risk 45 [facility] How often to you hav e a drink containing alcohol? 2-3 time sa week [facility] How many standard drinks containing alcohol do you have on a typical day? 1 or 2 [facility] How often do you hav e 6 or more drinks on 1 occasion? Never [facility] Start: 02-19-2025 Tobacco Comment 1 ppd [facility] Start: 02-25-2024 [facility] Start: 02-23-2025 End: 03-14-2025 Sex Female (finding) [facility] Functional Status Date Assessment Result Facility 02-19-2025 Total score [AUDIT-C] 3 02/20/20 11:59 AM EDT Keya Salgado MA [facility] Mental Status Date Assessment Result Facility 08-08-2022 Cognitive function Level Of Cons ciousness Awake;Alert;Appropriate [facility] Work Phone: Clinical Notes 08-10-2022 to 08-23-2025 Telephone Encounter - Shirlene Can MA - 08/08/2025 8:20 AM EDTTelephone Encounter - Shirlene Can MA - 08/08/2025 8:20 AM KAYCEETChristopher Suh APRN.[facility] - 08/02/2025 11:43 AM EDT Note Date & Type Note Facility 08-23-2025 Note HNO ID: [id number] Author: JENNIFER KULKARNI MD Service: ? Author Type: Physician Type: Progress Notes Filed: 08/23/2025 16:07 Note Text: Chief Complaint Follow up HPI Abraham Boyd is a 64 year old female who presents here today for 6 month follow up. Smokes 1 ppd; not ready to quit at this time. No bowel, Gi, or urinary issues. Thyroid: Taking Synthroid 112 mcg daily. No missed dosages. Asthma/COPD: Uses Albuterol inhaler prn, Dulera inhaler 2 puffs BID, Spiriva Respimat inhaler daily and Singulair 10 mg daily. [facility]s [facility] Pulmonary. Lipid: Does not take medication for cholesterol. Abraham also reports a tremor in her head, which she associates with anxiety and caffeine consumption. This tremor began approximately one year ago and was initially triggered by situations involving close proximity to others, such as during eye exams or haircuts. Over the past 6-8 months, the tremor has become more frequent, occurring even in less stressful situations. She notes that caffeine exacerbates the tremor, while smoking appears to provide some relief, though she is uncertain if this is a placebo effect. She denies any desire to start daily medication for this issue, preferring to manage it with deep breathing exercises. Past medical history, appointments, medications, allergies reviewed. Previous Medical History PAST MEDICAL HISTORY Diagnosis Date Depressive disorder, not elsewhere classified Other emphysema (HCC) PMH - PAST MEDICAL HISTORY OF 06/29/2008 Fracture right foot Restless legs syndrome (RLS) Previous Surgical History PAST SURGICAL HISTORY Procedure Laterality Date , CLASSIC, IN-HOSP CARE 1976,1980 PAST SURGICAL HISTORY OF conization Family History FAMILY HISTORY Problem Relation Age of Onset Cervical Cancer Mother Hypertension Mother Breast Cancer Sister Thyroid Maternal Aunt Patient Allergies ALLERGIES No Known Allergies Current Medications Current Outpatient Medications on File Prior to Visit Medication Sig TRELEGY ELLIPTA 200-62.5-25 mcg inhalation powder Inhale 1 puff as instructed once daily. levothyroxine (SYNTHROID) 112 mcg tablet Take 1 tablet by mouth once daily. Take on empty stomach. For thyroid montelukast (SINGULAIR) 10 mg tablet EVERY EVENING ALBUTEROL INHALATION Inhale as instructed. No current facility-administered medications on file prior to visit. Social History SOCIAL HISTORY[1] EXAM: LMP 10/13/2006 General Appearance: Well appearing, alert, in no acute distress, well-hydrated, well nourished.. Head: slight tremor. Lungs: Lungs clear to auscultation. No wheezing, rhonchi, rales.. Heart: RRR without murmur, gallop, or rubs. No ectopy. Health Maintenance List Hepatitis C Screening Never done HIV Screening Never done DTaP,Tdap,Td Vaccine(1 - Tdap) due on 12/21/2006 Shingrix Vaccine(1 of 2) Never done Colorectal Cancer Screening due on 02/16/2014 Mammogram Screening due on 11/03/2014 RSV Vaccine(1 - Risk 60-74 years 1-dose series) Never done Anxiety Screening due on 07/04/2025 Influenza Vaccine(1) due on 07/30/2025 Bone Density Screening due on 02/19/2026 Pneumococcal Vaccine: 50+(1 of 2 - PCV) due on 02/19/2026 Lung Cancer Screening due on 02/24/2026 Annual PCP Team Chronic Disease Visit due on 08/02/2026 Diabetes Screening due on 06/28/2027 Lipid Screening due on 06/28/2029 Advance Directive Discussion Completed Cervical Cancer Screening Discontinued Data reviewed Appointment on 08/17/2025 Component Date Value TSH 08/17/2025 3.300 Protein, Total 08/17/2025 7.1 Albumin 08/17/2025 4.4 Calcium, Total 08/17/2025 9.4 Bilirubin, Total 08/17/2025 0.6 Alkaline Phosphatase 08/17/2025 83 AST 08/17/2025 25 ALT 08/17/2025 16 Glucose 08/17/2025 90 BUN 08/17/2025 10 Creatinine 08/17/2025 0.67 Sodium 08/17/2025 139 Potassium 08/17/2025 4.3 Chloride 08/17/2025 104 CO2 08/17/2025 24 Anion Gap 08/17/2025 11 Estimated Glomerular Jonah* 08/17/2025 97 Cholesterol, Total 08/17/2025 208 (H) Triglyceride 08/17/2025 81 HDL Cholesterol 08/17/2025 68 LDL Cholesterol, Calcula* 08/17/2025 126 (H) Non HDL Cholesterol 08/17/2025 140 (H) VLDL Cholesterol 08/17/2025 14 TC:HDL Ratio 08/17/2025 3.06 LDL:HDL Ratio 08/17/2025 1.85 Fasting Time 08/17/2025 12 Recording using [employer] software for draft documentation of the visit was discussed with the patient/authorized independent sales representative; all questions welcomed and answered. Patient/authorized independent sales representative agreed to proceed 1. Chronic obstructive pulmonary disease, unspecified COPD type (HCC) (J44.9) Recent acute respiratory illness required two courses of antibiotics (Augmentin, then doxycycline) and a 5-day course of prednisone, with improvement but persistent cough. - Continue current inhalers (Trelegy, albuterol) and Singulair as prescribed. - Continue follow-up with pulmonology. 2. Encounter for immunization ( (more content not included)... [facility] 08-08-2025 Telephone encounter Note Advised via [email or web address] that she needs an appointment to tx. Shirlene Can MA [facility] 08-08-2025 Miscellaneous Notes Advised via [email or web address] that she needs an appointment to tx. Shirlene Can MA documented in this encounter [facility] 08-02-2025 Note HNO ID: [id number] Author: CHRISTOPHER SUH APRN.STAGE SETTING PAINTER APPRENTICE Service: ? Author Type: Nurse Practitioner Type: Progress Notes Filed: 08/02/2025 12:06 Note Text: Chief Complaint Patient presents with: Follow Up: Cough, fatigue HPI Abraham Boyd is a 64 year old female who presents here today for Above Complaints.. Patient presents continued cough, congestion and fatigue. Comopleted 5 days prednisone and augmentin with no change in symptoms. Past medical history, appointments, medications, allergies reviewed. Previous Medical History PAST MEDICAL HISTORY Diagnosis Date Depressive disorder, not elsewhere classified Other emphysema (HCC) PMH - PAST MEDICAL HISTORY OF 06/29/2008 Fracture right foot Restless legs syndrome (RLS) Previous Surgical History PAST SURGICAL HISTORY Procedure Laterality Date , CLASSIC, IN-HOSP CARE 1976,1980 PAST SURGICAL HISTORY OF conization Family History FAMILY HISTORY Problem Relation Age of Onset Cervical Cancer Mother Hypertension Mother Breast Cancer Sister Thyroid Maternal Aunt Patient Allergies ALLERGIES No Known Allergies Current Medications Current Outpatient Medications on File Prior to Visit Medication Sig TRELEGY ELLIPTA 200-62.5-25 mcg inhalation powder Inhale 1 puff as instructed once daily. levothyroxine (SYNTHROID) 112 mcg tablet Take 1 tablet by mouth once daily. Take on empty stomach. For thyroid montelukast (SINGULAIR) 10 mg tablet EVERY EVENING ALBUTEROL INHALATION Inhale as instructed. No current facility-administered medications on file prior to visit. Social History SOCIAL HISTORY[1] Review of Symptoms REVIEW OF SYSTEMS SEE HPI EXAM: BP 130/71 Pulse 60 Temp 36.3 ?C (97.3 ?F) Wt 67 kg (147 lb 11.3 oz) LMP 10/13/2006 SpO2 98% BMI 29.33 kg/m? General Appearance: Well appearing, alert, in no acute distress, well-hydrated, well nourished. Nose/Sinuses: Positive findings: mucosa erythematous and swollen, purulent rhinorrhea. Oropharynx: Lips, mucosa, and tongue normal, teeth and gums normal, oropharynx normal. Neck: Supple, no adenopathy; thyroid symmetric, normal size, no bruits. Lungs: Lungs clear to auscultation. No wheezing, rhonchi, rales.. Heart: RRR without murmur, gallop, or rubs. No ectopy. Health Maintenance List Hepatitis C Screening Never done HIV Screening Never done DTaP,Tdap,Td Vaccine(1 - Tdap) due on 12/21/2006 Shingrix Vaccine(1 of 2) Never done Colorectal Cancer Screening due on 02/16/2014 Mammogram Screening due on 11/03/2014 RSV Vaccine(1 - Risk 60-74 years 1-dose series) Never done Anxiety Screening due on 07/04/2025 Influenza Vaccine(1) due on 07/30/2025 Bone Density Screening due on 02/19/2026 Pneumococcal Vaccine: 50+(1 of 2 - PCV) due on 02/19/2026 Annual PCP Team Chronic Disease Visit due on 02/19/2026 Lung Cancer Screening due on 02/24/2026 Diabetes Screening due on 06/28/2027 Lipid Screening due on 06/28/2029 Advance Directive Discussion Completed Cervical Cancer Screening Discontinued ASSESSMENT/PLAN: 1. Bacterial sinusitis - ICD9: 473.9, 041.9, ICD10: J32.9, B96.89 - Will begin treatment with Doxycycline - The patient should also be given warm salt water gargles, throat lozenges and/or OTC throat spray as needed for the first 5-7 days of treatment. - Supportive care with plenty of fluids, rest, and analgesia prn. - Follow up in 3-5 days if symptoms persist or worsen. - DOXYCYCLINE HYCLATE 100 MG TABLET Christopher Suh, FINGERER.STAGE SETTING PAINTER APPRENTICE [1] Social History Tobacco Use Smoking status: Every Day Current packs/day: 1.00 Average packs/day: 1 pack/day for 30.0 years (30.0 ttl pk-yrs) Types: Cigarettes Smokeless tobacco: Never Tobacco comments: 1 ppd Substance Use Topics Alcohol use: Yes Comment: OCCASIONALLY Drug use: No [facility] 08-02-2025 History of Presen t illness Narrative Chief Complaint Patient presents with: Follow Up: Cough, fatigue HPI Abraham Byod is a 64 year old female who presents here today for Above Complaints.. Patient presents continued cough, congestion and fatigue. Comopleted 5 days prednisone and augmentin with no change in symptoms. Past medical history, appointments, medications, allergies reviewed. Previous Medical History PAST MEDICAL HISTORY Diagnosis Date Depressive disorder, not elsewhere classified Other emphysema (HCC) PMH - PAST MEDICAL HISTORY OF 06/29/2008 Fracture right foot Restless legs syndrome (RLS) Previous Surgical History PAST SURGICAL HISTORY Procedure Laterality Date , CLASSIC, IN-HOSP CARE 1976,1980 PAST SURGICAL HISTORY OF conization Family History FAMILY HISTORY Problem Relation Age of Onset Cervical Cancer Mother Hypertension Mother Breast Cancer Sister Thyroid Maternal Aunt Patient Allergies ALLERGIES No Known Allergies Current Medications Current Outpatient Medications on File Prior to Visit Medication Sig TRELEGY ELLIPTA 200-62.5-25 mcg inhalation powder Inhale 1 puff as instructed once daily. levothyroxine (SYNTHROID) 112 mcg tablet Take 1 tablet by mouth once daily. Take on empty stomach. For thyroid montelukast (SINGULAIR) 10 mg tablet EVERY EVENING ALBUTEROL INHALATION Inhale as instructed. No current facility-administered medications on file prior to visit. Social History SOCIAL HISTORY[1] Review of Symptoms REVIEW OF SYSTEMS SEE HPI EXAM: BP 130/71 Pulse 60 Temp 36.3 C (97.3 F) Wt 67 kg (147 lb 11.3 oz) LMP 10/13/2006 SpO2 98% BMI 29.33 kg/m General Appearance: Well appearing, alert, in no acute distress, well-hydrated, well nourished. Nose/Sinuses: Positive findings: mucosa erythematous and swollen, purulent rhinorrhea. Oropharynx: Lips, mucosa, and tongue normal, teeth and gums normal, oropharynx normal. Neck: Supple, no adenopathy; thyroid symmetric, normal size, no bruits. Lungs: Lungs clear to auscultation. No wheezing, rhonchi, rales.. Heart: RRR without murmur, gallop, or rubs. No ectopy. Health Maintenance List Hepatitis C Screening Never done HIV Screening Never done DTaP,Tdap,Td Vaccine(1 - Tdap) due on 12/21/2006 Shingrix Vaccine(1 of 2) Never done Colorectal Cancer Screening due on 02/16/2014 Mammogram Screening due on 11/03/2014 RSV Vaccine(1 - Risk 60-74 years 1-dose series) Never done Anxiety Screening due on 07/04/2025 Influenza Vaccine(1) due on 07/30/2025 Bone Density Screening due on 02/19/2026 Pneumococcal Vaccine: 50+(1 of 2 - PCV) due on 02/19/2026 Annual PCP Team Chronic Disease Visit due on 02/19/2026 Lung Cancer Screening due on 02/24/2026 Diabetes Screening due on 06/28/2027 Lipid Screening due on 06/28/2029 Advance Directive Discussion Completed Cervical Cancer Screening Discontinued ASSESSMENT/PLAN: 1. Bacterial sinusitis - ICD9: 473.9, 041.9, ICD10: J32.9, B96.89 - Will begin treatment with Doxycycline - The patient should also be given warm salt water gargles, throat lozenges and/or OTC throat spray as needed for the first 5-7 days of treatment. - Supportive care with plenty of fluids, rest, and analgesia prn. - Follow up in 3-5 days if symptoms persist or worsen. - DOXYCYCLINE HYCLATE 100 MG TABLET Christopher Suh APRN.CNP [1] Social History Tobacco Use Smoking status: Every Day Current packs/day: 1.00 Average packs/day: 1 pack/day for 30.0 years (30.0 ttl pk-yrs) Types: Cigarettes Smokeless tobacco: Never Tobacco comments: 1 ppd Substance Use Topics Alcohol use: Yes Comment: OCCASIONALLY Drug use: No documented in this encounter [facility] 07-27-2025 History of Presen t illness Narrative Radiology Service Progress Note PATIENT NAME: Abraham Boyd DATE OF SERVICE: July 27, 2025 TIME: 12:35 PM PATIENT IDENTITY VERIFICATION COMPLETED USING TWO (2) IDENTIFIERS: Name and Date of confirmed by patient verbally. FALL SCREENING: Has the patient had 2 falls in the last year or 1 fall with injury or currently using an Ambulatory Assistive Device (Walker, Cane, Wheelchair, Crutches, etc.)? No PATIENT GENDER DATA: Assigned female at . status: : No status: NO. PATIENT RELEVANT IMPLANT DATA REVIEWED: Not Applicable PATIENT PRESENTS WITH AN IMPLANTABLE OR ATTACHED DROP FORGER HELPER: No RADIOLOGY DEPARTMENT: General X-ray: Exam(s) Completed: Chest X-Ray PERIPHERAL IV DATA: Not applicable SIGNED BY: RT Lai(R) July 27, 2025 12:35 PM documented in this encounter [facility] 07-27-2025 Note HNO ID: [id number] Author: JAQUELIN PATEL RT(Jose) Service: ? Author Type: Technologist Type: Progress Notes Filed: 07/27/2025 12:41 Note Text: Radiology Service Progress Note PATIENT NAME: Abraham Boyd DATE OF SERVICE: July 27, 2025 TIME: 12:35 PM PATIENT IDENTITY VERIFICATION COMPLETED USING TWO (2) IDENTIFIERS: Name and Date of confirmed by patient verbally. FALL SCREENING: Has the patient had 2 falls in the last year or 1 fall with injury or currently using an Ambulatory Assistive Device (Walker, Cane, Wheelchair, Crutches, etc.)? No PATIENT GENDER DATA: Assigned female at . status: : No status: NO. PATIENT RELEVANT IMPLANT DATA REVIEWED: Not Applicable PATIENT PRESENTS WITH AN IMPLANTABLE OR ATTACHED DROP FORGER HELPER: No RADIOLOGY DEPARTMENT: General X-ray: Exam(s) Completed: Chest X-Ray PERIPHERAL IV DATA: Not applicable SIGNED BY: RT Lai(R) July 27, 2025 12:35 PM [facility] 07-27-2025 Note HNO ID: [id number] Author: DONOVAN ROMEO APRN.STAGE SETTING PAINTER APPRENTICE Service: ? Author Type: Nurse Practitioner Type: Progress Notes Filed: 07/27/2025 13:35 Note Text: [facility] Subjective Abraham Boyd is a 64 year old female presenting with a productive cough, chest congestion, and fatigue. Patient reports symptoms started a week ago which she though was her allergies, symptoms have gradually worsened. She reports being febrile, having chills, sneezing, and have nasal congestion and a runny nose. She now reports her sore throat, sneezing, fever, and chills have improved. Cough This is a new problem. The current episode started more than 1 week ago. The problem occurs constantly. The problem has been gradually worsening. The cough is Productive of purulent sputum. There has been no fever. Associated symptoms include headaches, rhinorrhea, shortness of breath and wheezing (worse at night). Pertinent negatives include no chest pain, no chills (reports episodes previously that has resolved), no sweats, no ear congestion, no ear pain, no sore throat (reports having one but resolved), no myalgias and no eye redness. Associated symptoms comments: Sore throat . She has tried decongestants and cough syrup (mucinex) for the symptoms. The treatment provided no relief. She is a smoker. Her past medical history is significant for COPD. Review of Systems Constitutional: Positive for fatigue. Negative for chills (reports episodes previously that has resolved) and fever (resolved). HENT: Positive for congestion, rhinorrhea and sinus pain (4/10). Negative for ear discharge, ear pain, facial swelling, postnasal drip, sinus pressure, sneezing, sore throat (reports having one but resolved), tinnitus, trouble swallowing and voice change. Eyes: Negative for pain, discharge, redness and itching. Respiratory: Positive for cough, shortness of breath and wheezing (worse at night). Negative for chest tightness. Cardiovascular: Negative for chest pain and palpitations. Gastrointestinal: Negative for abdominal distention and abdominal pain. Musculoskeletal: Negative for myalgias. Allergic/Immunologic: Positive for environmental allergies. Neurological: Positive for headaches. Negative for dizziness and light-headedness. Objective BP 120/70 Pulse 74 Temp 36.7 ?C (98 ?F) (Tympanic) Resp 16 Wt 95.3 kg (210 lb 1.6 oz) LMP 10/13/2006 SpO2 98% BMI 41.72 kg/m? Physical Exam Vitals and nursing note reviewed. Constitutional: General: She is not in acute distress. Appearance: Normal appearance. She is ill-appearing. She is not toxic-appearing. HENT: Head: Normocephalic. Right Ear: Tympanic membrane, ear canal and external ear normal. There is no impacted cerumen. Left Ear: Tympanic membrane, ear canal and external ear normal. There is no impacted cerumen. Nose: Nose normal. No congestion or rhinorrhea. Mouth/Throat: Lips: [place]. Mouth: Mucous membranes are moist. Tongue: No lesions. Tongue does not deviate from midline. Palate: No mass and lesions. Pharynx: Oropharynx is clear. Uvula midline. No pharyngeal swelling, oropharyngeal exudate, posterior oropharyngeal erythema, uvula swelling or postnasal drip. Tonsils: No tonsillar exudate or tonsillar abscesses. 1+ on the right. 1+ on the left. Eyes: General: Lids are normal. Lids are everted, no foreign bodies appreciated. Extraocular Movements: Extraocular movements intact. Conjunctiva/sclera: Conjunctivae normal. Pupils: Pupils are equal, round, and reactive to light. Cardiovascular: Rate and Rhythm: Normal rate and regular rhythm. Heart sounds: Normal heart sounds, S1 normal and S2 normal. No murmur heard. Pulmonary: Effort: Pulmonary effort is normal. Breath sounds: Normal breath sounds and air entry. No decreased breath sounds or wheezing. Musculoskeletal: Cervical back: Normal range of motion. Lymphadenopathy: Head: Right side of head: No submental, submandibular, tonsillar, preauricular, posterior auricular or occipital adenopathy. Left side of head: No submental, submandibular, tonsillar, preauricular, posterior auricular or occipital adenopathy. Skin: General: Skin is warm. Capillary Refill: Capillary refill takes less than 2 seconds. Neurological: Mental Status: She is alert and oriented to person, place, and time. Psychiatric: Mood and Affect: Mood normal. {ASSESSMENT/PLAN: 1. Bacterial sinusitis - ICD9: 473.9, 041.9, ICD10: J32.9, B96.89 (primary diagnosis) - Educated to complete full course of antibiotics - Educated on smoking cessation - Supportive care with plenty of fluids, rest, and analgesia prn. - Follow up in 3-5 days if symptoms persist or worsen. - AMOXICILLIN 875 MG-POTASSIUM CLAVULANATE 125 MG TABLET - PREDNISONE 20 MG TABLET 1. Acute cough - ICD9: 786.2, ICD10: R05.1 - XR CHEST 2V FRONTAL/LAT RESULT: Lines, tubes, and devices: None. Lungs and pleura: (more content not included)... [facility] 07-27-2025 History of Presen t illness Narrative [facility] [place] Abraham Boyd is a 64 year old female presenting with a productive cough, chest congestion, and fatigue. Patient reports symptoms started a week ago which she though was her allergies, symptoms have gradually worsened. She reports being febrile, having chills, sneezing, and have nasal congestion and a runny nose. She now reports her sore throat, sneezing, fever, and chills have improved. Cough This is a new problem. The current episode started more than 1 week ago. The problem occurs constantly. The problem has been gradually worsening. The cough is Productive of purulent sputum. There has been no fever. Associated symptoms include headaches, rhinorrhea, shortness of breath and wheezing (worse at night). Pertinent negatives include no chest pain, no chills (reports episodes previously that has resolved), no sweats, no ear congestion, no ear pain, no sore throat (reports having one but resolved), no myalgias and no eye redness. Associated symptoms comments: Sore throat . She has tried decongestants and cough syrup (mucinex) for the symptoms. The treatment provided no relief. She is a smoker. Her past medical history is significant for COPD. Review of Systems Constitutional: Positive for fatigue. Negative for chills (reports episodes previously that has resolved) and fever (resolved). HENT: Positive for congestion, rhinorrhea and sinus pain (4/10). Negative for ear discharge, ear pain, facial swelling, postnasal drip, sinus pressure, sneezing, sore throat (reports having one but resolved), tinnitus, trouble swallowing and voice change. Eyes: Negative for pain, discharge, redness and itching. Respiratory: Positive for cough, shortness of breath and wheezing (worse at night). Negative for chest tightness. Cardiovascular: Negative for chest pain and palpitations. Gastrointestinal: Negative for abdominal distention and abdominal pain. Musculoskeletal: Negative for myalgias. Allergic/Immunologic: Positive for environmental allergies. Neurological: Positive for headaches. Negative for dizziness and light-headedness. Objective BP 120/70 Pulse 74 Temp 36.7 C (98 F) (Tympanic) Resp 16 Wt 95.3 kg (210 lb 1.6 oz) LMP 10/13/2006 SpO2 98% BMI 41.72 kg/m Physical Exam Vitals and nursing note reviewed. Constitutional: General: She is not in acute distress. Appearance: Normal appearance. She is ill-appearing. She is not toxic-appearing. HENT: Head: Normocephalic. Right Ear: Tympanic membrane, ear canal and external ear normal. There is no impacted cerumen. Left Ear: Tympanic membrane, ear canal and external ear normal. There is no impacted cerumen. Nose: Nose normal. No congestion or rhinorrhea. Mouth/Throat: Lips: [place]. Mouth: Mucous membranes are moist. Tongue: No lesions. Tongue does not deviate from midline. Palate: No mass and lesions. Pharynx: Oropharynx is clear. Uvula midline. No pharyngeal swelling, oropharyngeal exudate, posterior oropharyngeal erythema, uvula swelling or postnasal drip. Tonsils: No tonsillar exudate or tonsillar abscesses. 1+ on the right. 1+ on the left. Eyes: General: Lids are normal. Lids are everted, no foreign bodies appreciated. Extraocular Movements: Extraocular movements intact. Conjunctiva/sclera: Conjunctivae normal. Pupils: Pupils are equal, round, and reactive to light. Cardiovascular: Rate and Rhythm: Normal rate and regular rhythm. Heart sounds: Normal heart sounds, S1 normal and S2 normal. No murmur heard. Pulmonary: Effort: Pulmonary effort is normal. Breath sounds: Normal breath sounds and air entry. No decreased breath sounds or wheezing. Musculoskeletal: Cervical back: Normal range of motion. Lymphadenopathy: Head: Right side of head: No submental, submandibular, tonsillar, preauricular, posterior auricular or occipital adenopathy. Left side of head: No submental, submandibular, tonsillar, preauricular, posterior auricular or occipital adenopathy. Skin: General: Skin is warm. Capillary Refill: Capillary refill takes less than 2 seconds. Neurological: Mental Status: She is alert and oriented to person, place, and time. Psychiatric: Mood and Affect: Mood normal. {ASSESSMENT/PLAN: 1. Bacterial sinusitis - ICD9: 473.9, 041.9, ICD10: J32.9, B96.89 (primary diagnosis) - Educated to complete full course of antibiotics - Educated on smoking cessation - Supportive care with plenty of fluids, rest, and analgesia prn. - Follow up in 3-5 days if symptoms persist or worsen. - AMOXICILLIN 875 MG-POTASSIUM CLAVULANATE 125 MG TABLET - PREDNISONE 20 MG TABLET 1. Acute cough - ICD9: 786.2, ICD10: R05.1 - XR CHEST 2V FRONTAL/LAT RESULT: Lines, tubes, and devices: None. Lungs and pleura: No consolidation. No lung mass. No pleural effusion. No pneumothorax. Cardiomediastinal silhouette: Normal cardiomediastinal silhouette. Bones and soft tissues: Unremarkable. CrCl cannot be calculated (Patient's most recent lab result is older than the maximum 180 days allowed.). - Pt has not received labs in over a year. Pt denied having any kidney disease. Disposition The patient was discharged. Discussed medication dosage, usage, goals of therapy, and side effects. Return to [facility], call primary care provider, or go to the emergency department for problems, worsening, increased or new symptoms, etc. Red flag symptoms discussed with the patient and when to go to ER. Patient verbalized understanding to plan of care. Tyrone Zambrano WEBMETHODS CONSULTANT student TEACHING PROVIDER (Physician/PA/FINGERER) NOTE OF PERSONAL INVOLVEMENT IN CARE: I have personally seen and examined the patient and performed the medical decision-making components. I have reviewed the Advanced Practice Registered Nurse (FINGERER) Student's documentation and verified the findings in the note as written. Any additions or changes are noted in bold/italics. Signature: Donovan Romeo Date: 07/27/2025 Time: 1:35 PM documented in this encounter [facility] 07-10-2025 Note Patient Outreach (FA MPWS) ABRAHAM BOYD ([id number]) 1960 F Date Time Provider Department 07/10/25 JENNIFER KULKARNI FAMPJUHI During your visit today, we recorded the following information about you: Allergies As of Date: 07/10/2025 (No Known Allergies) Date Reviewed: 02/19/2025 Reviewed by: Keya Salgado MA - Fully Assessed Visit Diagnosis:Encounter for screening mammogram for breast cancer [Z12.31] Order(s):BRAIN SCREENING W TYRELL [[id number]] Order #: [id number] FUTURE Prescriptions as of 08/10/2025 - TRELEGY ELLIPTA 200-62.5-25 mcg inhalation powder Inhale 1 puff as instructed once daily. - levothyroxine (SYNTHROID) 112 mcg tablet Take 1 tablet by mouth once daily. Take on empty stomach. For thyroid - montelukast (SINGULAIR) 10 mg tablet EVERY EVENING - ALBUTEROL INHALATION Inhale as instructed. Problem List As Of Date 07/10/2025 Noted Resolved ADJUSTMENT DISORDER WITH DEPRESSED MOOD [F43.21]08/25/2005 LUMBAGO [M54.50] 08/12/2007 URINARY INCONTINENCE, UNSPECIFIED [R32] 10/01/2007 Carpal Tunnel Syndrome [G56.00] 03/12/2010 Depressive Disorder, not Elsewhere Classified [*03/12/2010 Hypothyroidism [E03.9] 02/10/2013 Back pain [M54.9] 02/16/2013 Encounter Status:Closed by Modumetal, PRODUSER on 08/10/25 [facility] 06-18-2025 Telephone encounter Note OK to refill as ordered Jennifer Kulkarni MD [facility] 06-18-2025 Miscellaneous Notes OK to refill as ordered Jennifer Kulkarni MD The patient has been identified by name and date of : Yes Caregiver verified no other encounters exist for this prescription request: Yes Caregiver confirmed with patient/requestor that no other refills are due, in the near future, with this provider at this time: Yes The last office visit in the department: 02/19/2025 Does the patient have a future office visit with this provider/department: Yes 08/23/2025 Requested Prescriptions Pending Prescriptions Disp Refills levothyroxine (SYNTHROID) 112 mcg tablet 30 tablet 1 Sig: Take 1 tablet by mouth once daily. Take on empty stomach. For thyroid Patricia Briseno RN June 18, 2025 8:28 AM documented in this encounter [facility] 06-18-2025 Telephone encounter Note The patient has been identified by name and date of : Yes Caregiver verified no other encounters exist for this prescription request: Yes Caregiver confirmed with patient/requestor that no other refills are due, in the near future, with this provider at this time: Yes The last office visit in the department: 02/19/2025 Does the patient have a future office visit with this provider/department: Yes 08/23/2025 Requested Prescriptions Pending Prescriptions Disp Refills levothyroxine (SYNTHROID) 112 mcg tablet 30 tablet 1 Sig: Take 1 tablet by mouth once daily. Take on empty stomach. For thyroid Patricia Briseno RN June 18, 2025 8:28 AM [facility] 03-12-2025 Procedure note [facility] 03-09-2025 Note HNO ID: [id number] Author: MARY ASCENCIO MA Service: ? Author Type: Roll Press Operator Type: Progress Notes Filed: 03/09/2025 14:49 Note Text: POPULATION HEALTH NAVIGATION OUTREACH Action/FYI Cologuard kit was ordered for patient on 02/19/2025 , will contact patient to follow up. Attempted to contact patient. Message states, All circuits are busy, please try again later. Unable to leave [email or web address]. [email or web address] message sent. Reason for Outreach Care Gap/HCC or Scheduling Wellness Visits Care Gaps due: Colorectal Cancer Screening Patient Contacted: Unable or unnecessary to reach patient: Unable to leave message MyChart message sent Navigation Signature: Mary Ascencio MA March 09, 2025 2:48 PM [facility] 03-09-2025 History of Present illness Narrative POPULATION HEALTH NAVIGATION OUTREACH Action/FYI Cologuard kit was ordered for patient on 02/19/2025 , will contact patient to follow up. Attempted to contact patient. Message states, All circuits are busy, please try again later. Unable to leave [email or web address]. [email or web address] message sent. Reason for Outreach Care Gap/HCC or Scheduling Wellness Visits Care Gaps due: Colorectal Cancer Screening Patient Contacted: Unable or unnecessary to reach patient: Unable to leave message [email or web address] message sent Navigation Signature: Mary Ascencio MA March 09, 2025 2:48 PM documented in this encounter [facility] 03-09-2025 Note Patient Outreach (NE TNAV) ABRAHAM BOYD ([id number]) 1960 F Date Time Provider Department 03/09/25 MARY ASCENCIO During your visit today, we recorded the following information about you: Mary Ascencio MA 03/09/2025 2:49 PM Signed POPULATION HEALTH NAVIGATION OUTREACH Action/FYI Cologuard kit was ordered for patient on 02/19/2025 , will contact patient to follow up. Attempted to contact patient. Message states, All circuits are busy, please try again later. Unable to leave VM. [employer] message sent. Reason for Outreach Care Gap/HCC or Scheduling Wellness Visits Care Gaps due: Colorectal Cancer Screening Patient Contacted: Unable or unnecessary to reach patient: Unable to leave message [email or web address] message sent Navigation Signature: Mary Ascencio MA March 09, 2025 2:48 PM Allergies As of Date: 03/09/2025 (No Known Allergies) Date Reviewed: 02/19/2025 Reviewed by: Keya Salgado MA - Fully Assessed Reason for Visit: Population Health Navigation Outreach [3910] Cmt: Cologuard Outreach Prescriptions as of 03/09/2025 - DULERA 200-5 mcg/actuation inhaler Inhale 2 Puffs as instructed two times a day. - SPIRIVA RESPIMAT 2.5 mcg/actuation inhaler Inhale 2 Puffs as instructed once daily. - levothyroxine (SYNTHROID) 112 mcg tablet Take 1 tablet by mouth once daily. Take on empty stomach. For thyroid - montelukast (SINGULAIR) 10 mg tablet EVERY EVENING - ALBUTEROL INHALATION Inhale as instructed. Problem List As Of Date 03/09/2025 Noted Resolved ADJUSTMENT DISORDER WITH DEPRESSED MOOD [F43.21]08/25/2005 LUMBAGO [M54.50] 08/12/2007 URINARY INCONTINENCE, UNSPECIFIED [R32] 10/01/2007 Carpal Tunnel Syndrome [G56.00] 03/12/2010 Depressive Disorder, not Elsewhere Classified [*03/12/2010 Hypothyroidism [E03.9] 02/10/2013 Back pain [M54.9] 02/16/2013 Encounter Status:Closed by MARY ASCENCIO on 03/09/25 [facility] 02-24-2025 Radiology Diagnostic study note [facility] Imaging Services [address] [place] [id number] Lung Screening MR#: [id number] Acct: [id number] Name: ABRAHAM BOYD Amarilis Rep #: [id number] : 1960 F 64 From: Melanie Gallegos MD PCP: Dr. Jennifer Kulkarni MD Status: RE G CLI Study:Low Dose CT Lung Screening Date of Exam : 02/24/25 Exam# [id number] Ordering Dr: Barbara Paiz WEBMETHODS CONSULTANT WEBMETHODS CONSULTANT-C PROCEDURE: LOW DOSE CT LUNG SCREENING 02/24/2025 REASON FOR EXAM: SMOKER TECHNIQUE: Low Dose CT Lung screening without contrast. Coronal and Sagittal reconstructionseries were provided. One or more dose reduction techniques were used (e.g., Automated exposure control, adjustment of the mA and/or kV according to patient size, use of iterative reconstruction technique). REFERENCE LINK: [employer] Lung-RADS COMPARISON: 02/15/2024 FINDINGS: Lungs/Pleura:Emphysematous disease is present. There is a stable punctate pulmonary nodule in the right upper lobe measuring 2.4 mm.No pleural effusion or pneumothorax. Cardiovascular:The heart is normal in size.No coronary artery calcifications areidentified.The aorta and pulmonary arteries are unremarkable. Pericardium:No effusion. Mediastinum:Unremarkable. Lymph nodes:No lymph node enlargement identified on this noncontrast CT. Bones:No acute osseous abnormality.Mpva-eb-zsljlust multilevel degenerative changes are present. Soft tissues:Unremarkable. Upper abdomen:Hepatic cysts are again noted. CT/Low Dose CT Lung Screening IMPRESSION: 1. Stable punctate pulmonary nodule. Lung-RADS category 2: Benign. 2. Emphysematous disease. Reading Location: [facility] CC: ALFONSO Paiz; Dr. Jennifer Kulkarni MD ~ Data Services Developer: Signed [facility] 02-19-2025 History of Present illness Narrative Images from the original note were not included. Abraham Boyd is a 64 year old female here for a Medicare wellness visit. Medicare Health Risk Assessment General Health Fair Exercise: Minutes/Day 0 min Exercise: Days/Week 0 days Alcohol: Daily Use 2-3 times a week Alcohol: Drinks/Day 1 or 2 Alcohol: 6 or more drinks Never Feel off balance No Concerns: Teeth/Dentures No Concerns: Sexual function No Troubled by feelings None of the above Frequency: Eating healthy diet Several days ADLs requiring help None of the above Safety precautions in home/vehicle Yes Smoke, vape, chews tobacco Yes, but I'm not ready to quit Difficulty hearing No Difficulty seeing No Current Providers Specialists: I have reviewed specialist-related care of the patient in the medical record. Current care team: Patient Care Team: Jennifer Kulkarni MD as PCP - General (Family Medicine) Mge Finley APRN.STAGE SETTING PAINTER APPRENTICE as Cost Control Supervisor (Family Medicine) Johnathan Zuniga APRN.CNP as Cost Control Supervisor (Family Medicine) Gini Zhu CNP - Pulmonary [facility] (unable to recall name of Provider) Medical/Family history review Reviewed and updated problem list, medical/surgical/family/social history, medications, and allergies. Opioid use review Opioid Medications (last 90 days) No data to display Anxiety/Depression screening PHQ-2 Score: 0 (Lower risk for depression) Recommendation: no further intervention at this time Cognitive screening Cognitive screening reviewed and No further action needed (score 3-5). Functional Observation Was the patient's Timed Up & Go test unsteady or >= 12 seconds? No Advance Care Planning Patient did not wish or was not able to name a surrogate decision maker or provide an advance care plan Measurements LMP 10/13/2006 Vision Screening: Right: 20/30 Left: 20/ 25 Both: 20/25 Did not have glasses on during exam, wears them generally. Color exam normal. Assessment/Plan Medicare annual wellness visit, initial (Z00.00) - Counseled on healthy diet and regular exercise - Fall avoidance information provided - Personalized prevention plan provided Chief Complaint Patient presents with: Medicare Wellness Exam HPI Abraham Boyd is a 64 year old female who presents here today for 6 month follow up and Medicare Wellness. Retired 3 months ago, has not been motivated to do anything since then; gaining weight, not exercising,smoking. Smoker - Smokes 1 ppd, thinks about quitting just not quite ready. No bowel, Gi, or urinary issues. No chest pains, dizziness, or SOB. Asthma: Stable with Albuterol inhaler prn, Dulera inhaler 2 puffs BID, Spiriva Respimat inhaler daily and Singulair 10 mg daily. Follows with [facility] Pulmonary, see's them about once very 3 months. Thyroid: Taking Synthroid 112 mcg daily. Feels stable on this dosage. Occasional missed dosages. Diet/Exercise - Admits that her diet is not the greatest right now as well as exercise. Stopped working in October, since that time has not done the greatest. - Denies having Adv Dir/Living Will (denies wanting paperwork). Declines Covid vaccine. Declines BMD screening. Agreeable to Cologuard. Past medical history, appointments, medications, allergies reviewed. Previous Medical History PAST MEDICAL HISTORY Diagnosis Date Depressive disorder, not elsewhere classified Other emphysema (HCC) PMH - PAST MEDICAL HISTORY OF 06/29/2008 Fracture right foot Restless legs syndrome (RLS) Previous Surgical History PAST SURGICAL HISTORY Procedure Laterality Date , CLASSIC, IN-HOSP CARE 1976,1980 PAST SURGICAL HISTORY OF conization Family History FAMILY HISTORY Problem Relation Age of Onset Cervical Cancer Mother Hypertension Mother Breast Cancer Sister Thyroid Maternal Aunt Patient Allergies ALLERGIES No Known Allergies Current Medications Current Outpatient Medications on File Prior to Visit Medication Sig DULERA 200-5 mcg/actuation inhaler Inhale 2 Puffs as instructed two times a day. SPIRIVA RESPIMAT 2.5 mcg/actuation inhaler Inhale 2 Puffs as instructed once daily. levothyroxine (SYNTHROID) 112 mcg tablet Take 1 tablet by mouth once daily. Take on empty stomach. For thyroid montelukast (SINGULAIR) 10 mg tablet EVERY EVENING ALBUTEROL INHALATION Inhale as instructed. No current facility-administered medications on file prior to visit. Social History Social History Tobacco Use Smoking status: Every Day Current packs/day: 1.00 Average packs/day: 1 pack/day for 30.0 years (30.0 ttl pk-yrs) Types: Cigarettes Smokeless tobacco: Never Tobacco comments: 1 ppd Substance Use Topics Alcohol use: Yes Comment: OCCASIONALLY Drug use: No EXAM: BP 122/84 (BP Site: Left Arm, BP Position: Sitting, BP Cuff Size: Regular Adult) Pulse 64 Resp 16 Ht 151.1 cm (4' 11.5) Wt 64.1 kg (141 lb 5 oz) LMP 10/13/2006 BMI 28.06 kg/m General Appearance: Well appearing, alert, in no acute distress, well-hydrated, well nourished.. Lungs: Lungs clear to auscultation. No wheezing, rhonchi, rales.. Heart: RRR without murmur, gallop, or rubs. No ectopy. Health Maintenance List Spirometry Never done Alpha-1 Antitrypsin Deficiency Screening Never done DTaP,Tdap,Td Vaccine(1 - Tdap) due on 12/21/2006 Colorectal Cancer Screening due on 02/16/2014 Advance Directive Discussion Never done Lung Cancer Screening due on 02/09/2025 Mammogram Screening due on 07/04/2025 RSV Vaccine(1 - Risk 60-74 years 1-dose series) due on 07/04/2025 Hepatitis C Screening due on 07/04/2025 HIV Screening due on 07/04/2025 Shingrix Vaccine(1 of 2) due on 07/04/2025 Bone Density Screening due on 02/19/2026 Covid-19 Vaccine(5 - season) due on 02/19/2026 Pneumococcal Vaccine: 50+(1 of 2 - PCV) due on 02/19/2026 Anxiety Screening due on 07/04/2025 Annual PCP Team Chronic Disease Visit due on 02/19/2026 Diabetes Screening due on 06/28/2027 Lipid Screening due on 06/28/2029 Influenza Vaccine Completed Cervical Cancer Screening Discontinued Data reviewed Appointment on 01/01/2025 Component Date Value TSH 01/01/2025 2.870 ASSESSMENT/PLAN: 1. Hypothyroidism, unspecified type - ICD9: 244.9, ICD10: E03.9 (primary diagnosis) - Instructed patient on importance of taking on an empty stomach either first thing in the morning or at bedtime. - check TSH in 6 months - continue current dose of Synthroid 0.112 mg - THYROID STIMULATING HORMONE 2. Screening for colon cancer - ICD9: V76.51, ICD10: Z12.11 - COLOGUARD 3. Encounter for Medicare annual wellness exam - ICD9: V70.0, ICD10: Z00.00 - Counseled on healthy diet and regular exercise - Discussed need and benefit for weight loss. BMI 28.06 kg/(m^2) - Colorectal cancer screening - ordered Cologuard - Smoking cessation encouraged; discussed health risks and quitting strategies. Patient is not ready to quit 4. Chronic obstructive pulmonary disease, unspecified COPD type (HCC) - ICD9: 496, ICD10: J44.9 Stable Continue current medications. Follow with Pulm 5. Smoker - ICD9: 305.1, ICD10: F17.200 - Cessation encouraged. - Physiologic and physical aspects of tobacco addiction as well as strategies for quitting were discussed. - Counseling was given focusing on the harmful effects of this addiction especially given the patient's medical condition(s) which will be worsened because of the chemicals in tobacco. 6. Hyperlipidemia, unspecified hyperlipidemia type - ICD9: 272.4, ICD10: E78.5 - Controlled - Counseled on healthy diet and regular exercise - COMPREHENSIVE METABOLIC PANEL - LIPID PANEL, FASTING Follow up in 6 months with labs prior Medical Decision Making: Problems: Moderate: 2+ stable chronic illnesses Data: Unique test result(s) reviewed: 1 Unique test(s) ordered: 3+ Risk: Moderate: Drug management Medical Decision Making Level: 4 - Moderate Jennifer Kulkarni MD documented in this encounter [facility] 02-19-2025 Note HNO ID: [id number] Author: JENNIFER KULKARNI MD Service: ? Author Type: Physician Type: Progress Notes Filed: 02/19/2025 12:38 Note Text: Abraham Boyd is a 64 year old female here for a Medicare wellness visit. Medicare Health Risk Assessment General Health Fair Exercise: Minutes/Day 0 min Exercise: Days/Week 0 days Alcohol: Daily Use 2-3 times a week Alcohol: Drinks/Day 1 or 2 Alcohol: 6 or more drinks Never Feel off balance No Concerns: Teeth/Dentures No Concerns: Sexual function No Troubled by feelings None of the above Frequency: Eating healthy diet Several days ADLs requiring help None of the above Safety precautions in home/vehicle Yes Smoke, vape, chews tobacco Yes, but I'm not ready to quit Difficulty hearing No Difficulty seeing No Current Providers Specialists: I have reviewed specialist-related care of the patient in the medical record. Current care team: Patient Care Team: Jennifer Kulkarni MD as PCP - General (Family Medicine) Meg Finley APRN.STAGE SETTING PAINTER APPRENTICE as Cost Control Supervisor (Family Medicine) Johnathan Zuniga APRN.CNP as Cost Control Supervisor (Family Medicine) Gini Zhu CNP - [facility] (unable to recall name of Provider) Medical/Family history review Reviewed and updated problem list, medical/surgical/family/social history, medications, and allergies. Opioid use review Opioid Medications (last 90 days) No data to display Anxiety/Depression screening PHQ-2 Score: 0 (Lower risk for depression) Recommendation: no further intervention at this time Cognitive screening Cognitive screening reviewed and No further action needed (score 3-5). Functional Observation Was the patient's Timed Up AND Go test unsteady or >= 12 seconds? No Advance Care Planning Patient did not wish or was not able to name a surrogate decision maker or provide an advance care plan Measurements LMP 10/13/2006 Vision Screening: Right: 20/30 Left: 20/ 25 Both: 20/25 Did not have glasses on during exam, wears them generally. Color exam normal. Assessment/Plan Medicare annual wellness visit, initial (Z00.00) - Counseled on healthy diet and regular exercise - Fall avoidance information provided - Personalized prevention plan provided Chief Complaint Patient presents with: Medicare Wellness Exam HPI Abraham Boyd is a 64 year old female who presents here today for 6 month follow up and Medicare Wellness. Retired 3 months ago, has not been motivated to do anything since then; gaining weight, not exercising,smoking. Smoker - Smokes 1 ppd, thinks about quitting just not quite ready. No bowel, Gi, or urinary issues. No chest pains, dizziness, or SOB. Asthma: Stable with Albuterol inhaler prn, Dulera inhaler 2 puffs BID, Spiriva Respimat inhaler daily and Singulair 10 mg daily. Follows with [facility] Pulmonary, see's them about once very 3 months. Thyroid: Taking Synthroid 112 mcg daily. Feels stable on this dosage. Occasional missed dosages. Diet/Exercise - Admits that her diet is not the greatest right now as well as exercise. Stopped working in October, since that time has not done the greatest. HM - Denies having Adv Dir/Living Will (denies wanting paperwork). Declines Covid vaccine. Declines BMD screening. Agreeable to Cologuard. Past medical history, appointments, medications, allergies reviewed. Previous Medical History PAST MEDICAL HISTORY Diagnosis Date Depressive disorder, not elsewhere classified Other emphysema (HCC) PMH - PAST MEDICAL HISTORY OF 06/29/2008 Fracture right foot Restless legs syndrome (RLS) Previous Surgical History PAST SURGICAL HISTORY Procedure Laterality Date , CLASSIC, IN-HOSP CARE 1976,1980 PAST SURGICAL HISTORY OF conization Family History FAMILY HISTORY Problem Relation Age of Onset Cervical Cancer Mother Hypertension Mother Breast Cancer Sister Thyroid Maternal Aunt Patient Allergies ALLERGIES No Known Allergies Current Medications Current Outpatient Medications on File Prior to Visit Medication Sig DULERA 200-5 mcg/actuation inhaler Inhale 2 Puffs as instructed two times a day. SPIRIVA RESPIMAT 2.5 mcg/actuation inhaler Inhale 2 Puffs as instructed once daily. levothyroxine (SYNTHROID) 112 mcg tablet Take 1 tablet by mouth once daily. Take on empty stomach. For thyroid montelukast (SINGULAIR) 10 mg tablet EVERY EVENING ALBUTEROL INHALATION Inhale as instructed. No current facility-administered medications on file prior to visit. Social History Social History Tobacco Use Smoking status: Every Day Current packs/day: 1.00 Average packs/day: 1 pack/day for 30.0 years (30.0 ttl pk-yrs) Types: Cigarettes Smokeless tobacco: Never Tobacco comments: 1 ppd Substance Use Topics Alcohol use: Yes Comment: OCCASIONALLY Drug use: No EXAM: BP 122/84 (BP Site: Left Arm, BP Position: Sitting, BP Cuff Size: Regular Adult) Pulse 64 Resp 16 (more content not included)... [facility] 07-04-2024 History of Present illness Narrative Chief Complaint Patient presents with: F/U 6 Month HPI Abraham Boyd is a 63 year old female who presents here today for 6 month follow up. No bowel, Gi, or urinary issues. Tobacco - Still smoking about 1 ppd. Thinks about quitting, just not quite ready yet. Asthma: Overall doing well on her new regimen. Currently taking Dulera 200-5 mcg 2 puffs bid and Spiriva Respimat 2.5 mcg 2 puffs once daily. Uses rescue Inhaler maybe twice weekly and Singulair 10 mg once daily. Follows with Pulm at [facility], Dr. Jackson and Britney Paiz. Sees them every 3-6 months. Gets annual lung cancer screening done through them. Thyroid: Doing well on current regimen of Synthroid 112 mcg daily. Rare missed dosages. HM - Anxiety Screening completed, negative. Declines Hep C/HIV screening. Declines Mammogram and Colorectal Screening. Declines RSV, Pneumonia, Shingles vaccines. Past medical history, appointments, medications, allergies reviewed. Previous Medical History PAST MEDICAL HISTORY No date: Depressive disorder, not elsewhere classified No date: Other emphysema (HCC) 06/29/2008: PMH - PAST MEDICAL HISTORY OF Comment: Fracture right foot No date: Restless legs syndrome (RLS) Previous Surgical History PAST SURGICAL HISTORY : , CLASSIC, IN-HOSP CARE No date: PAST SURGICAL HISTORY OF Comment: conization Family History FAMILY HISTORY Problem Relation Age of Onset Cervical Cancer Mother Hypertension Mother Breast Cancer Sister Thyroid Maternal Aunt Patient Allergies ALLERGIES No Known Allergies Current Medications Current Outpatient Medications on File Prior to Visit Medication Sig levothyroxine (SYNTHROID) 112 mcg tablet Take 1 tablet by mouth once daily. Take on empty stomach. For thyroid montelukast (SINGULAIR) 10 mg tablet EVERY EVENING SYMBICORT 160-4.5 mcg/actuation inhaler INHALE 2 PUFFS BY MOUTH TWICE DAILY. RINSE MOUTH AFTER USE ALBUTEROL INHALATION Inhale as instructed. No current facility-administered medications on file prior to visit. Social History Social History Tobacco Use Smoking status: Every Day Packs/day: 1.00 Years: 30.00 Additional pack years: 0.00 Total pack years: 30.00 Types: Cigarettes Smokeless tobacco: Never Substance Use Topics Alcohol use: Yes Comment: OCCASIONALLY Drug use: No EXAM: BP 112/74 (BP Site: Right Arm, BP Position: Sitting, BP Cuff Size: Regular Adult) Pulse 68 Resp 18 Wt 59.8 kg (131 lb 13.4 oz) LMP 10/13/2006 General Appearance: Well appearing, alert, in no acute distress, well-hydrated, well nourished.. Neck: Supple, no adenopathy; thyroid symmetric, normal size, Lungs: Lungs clear to auscultation. No wheezing, rhonchi, rales.. Heart: RRR without murmur, gallop, or rubs. No ectopy. Health Maintenance List Pneumococcal Vaccine(1 of 2 - PCV) Never done Spirometry Never done Anxiety Screening Never done Hepatitis C Screening Never done HIV Screening Never done Alpha-1 Antitrypsin Deficiency Screening Never done DTaP,Tdap,Td Vaccine(1 - Tdap) due on 12/21/2006 Lung Cancer Screening Never done Shingrix Vaccine(1 of 2) Never done Colorectal Cancer Screening due on 02/16/2014 Mammogram Screening due on 11/03/2014 Cervical Cancer Screening due on 11/03/2018 RSV Vaccine(1 - 1-dose 60+ series) Never done Influenza Vaccine(1) due on 07/30/2024 Annual PCP Team Chronic Disease Visit due on 01/04/2025 Diabetes Screening due on 06/28/2027 Lipid Screening due on 06/28/2029 Covid-19 Vaccine Completed Data reviewed Appointment on 06/28/2024 Component Date Value Cholesterol, Total 06/28/2024 197 Triglyceride 06/28/2024 45 HDL Cholesterol 06/28/2024 75 Non HDL Cholesterol 06/28/2024 122 Fasting Time 06/28/2024 12 VLDL Cholesterol 06/28/2024 9 TC:HDL Ratio 06/28/2024 2.63 LDL Cholesterol 06/28/2024 113 (H) LDL:HDL Ratio 06/28/2024 1.51 Protein, Total 06/28/2024 7.2 Albumin 06/28/2024 4.4 Calcium, Total 06/28/2024 9.4 Bilirubin, Total 06/28/2024 0.5 Alkaline Phosphatase 06/28/2024 68 AST 06/28/2024 23 ALT 06/28/2024 10 Glucose 06/28/2024 87 BUN 06/28/2024 10 Creatinine 06/28/2024 0.76 Sodium 06/28/2024 141 Potassium 06/28/2024 4.1 Chloride 06/28/2024 105 CO2 06/28/2024 24 Anion Gap 06/28/2024 12 Estimated Glomerular Jonah* 06/28/2024 88 TSH 06/28/2024 3.060 ASSESSMENT/PLAN: 1. Hypothyroidism, unspecified type - ICD9: 244.9, ICD10: E03.9 (primary diagnosis) - Instructed patient on importance of taking on an empty stomach either first thing in the morning or at bedtime. - check TSH in 6 months - continue current dose of Synthroid 0.112 mg - THYROID STIMULATING HORMONE 2. Chronic obstructive pulmonary disease, unspecified COPD type (HCC) - ICD9: 496, ICD10: J44.9 Follow with Pulm Smoking cessation 3. Encounter for screening examination for other mental health and behavioral disorders - ICD9: V79.8, ICD10: Z13.39 - ANXIETY SCREENING Follow up in 6 months Medical Decision Making: Problems: Low: Stable chronic illness Data: Unique test result(s) reviewed: 3+ Risk: Moderate: Drug management Medical Decision Making Level: 4 - Moderate Jennifer Kulkarni MD documented in this encounter [facility] 05-17-2024 Telephone encounter Note The following approved medication requests have been transmitted electronically. Requested Prescriptions Pending Prescriptions Disp Refills levothyroxine (SYNTHROID) 112 mcg tablet 30 tablet 11 Sig: Take 1 tablet by mouth once daily. Take on empty stomach. For thyroid Meg Finley APRN.CNP [facility] 05-17-2024 Miscellaneous Notes The following approved medication requests have been transmitted electronically. Requested Prescriptions Pending Prescriptions Disp Refills levothyroxine (SYNTHROID) 112 mcg tablet 30 tablet 11 Sig: Take 1 tablet by mouth once daily. Take on empty stomach. For thyroid Meg Finley APRN.CNP Prescription Refill Information The patient has been identified by name and date of : Yes Caregiver verified no other encounters exist for this prescription request: Yes Caregiver confirmed with patient/requestor that no other refills are due, in the near future, with this provider at this time: Yes The last office visit in the department: 01/04/2024 Does the patient have a future office visit with this provider/department: Yes Requested Prescriptions Pending Prescriptions Disp Refills levothyroxine (SYNTHROID) 112 mcg tablet 30 tablet 11 Sig: Take 1 tablet by mouth once daily. Take on empty stomach. For thyroid Abby Santillan May 17, 2024 2:04 PM documented in this encounter [facility] 05-17-2024 Telephone encounter Note Prescription Refill Information The patient has been identified by name and date of : Yes Caregiver verified no other encounters exist for this prescription request: Yes Caregiver confirmed with patient/requestor that no other refills are due, in the near future, with this provider at this time: Yes The last office visit in the department: 01/04/2024 Does the patient have a future office visit with this provider/department: Yes Requested Prescriptions Pending Prescriptions Disp Refills levothyroxine (SYNTHROID) 112 mcg tablet 30 tablet 11 Sig: Take 1 tablet by mouth once daily. Take on empty stomach. For thyroid Abby Santillan May 17, 2024 2:04 PM [facility] 01-04-2024 History of Present illness Narrative Chief Complaint Patient presents with: 6 Month Exam HPI Abraham Boyd is a 63 year old female who presents here today for 6 month follow up. Declined Pneumonia vaccines, RSV vaccine today. Smokes about 1 ppd. Unsure about quitting at this time. She did buy some nicotine patches but hasn't used them yet. She follows with Amber Quevedo who has done 2 lung cancer screening tests. No bowel, Gi, or urinary issues. No chest pains, dizziness, or SOB. Thyroid: Taking Synthroid 112 mcg daily. No missed dosages. Feels good on current dosage. Asthma: uses Singulair 10 mg daily, albuterol inhaler prn, and Symbicort 2 puffs BID. Follows with Pulm Dr. Ruby. Past medical history, appointments, medications, allergies reviewed. Previous Medical History PAST MEDICAL HISTORY Diagnosis Date Depressive disorder, not elsewhere classified Other emphysema (HCC) PMH - PAST MEDICAL HISTORY OF 06/29/2008 Fracture right foot Restless legs syndrome (RLS) Previous Surgical History PAST SURGICAL HISTORY Procedure Laterality Date , CLASSIC, IN-HOSP CARE 1976,1980 PAST SURGICAL HISTORY OF conization Family History FAMILY HISTORY Problem Relation Age of Onset Cervical Cancer Mother Hypertension Mother Breast Cancer Sister Thyroid Maternal Aunt Patient Allergies ALLERGIES No Known Allergies Current Medications Current Outpatient Medications on File Prior to Visit Medication Sig levothyroxine (SYNTHROID) 112 mcg tablet Take 1 tablet by mouth once daily. Take on empty stomach. For thyroid montelukast (SINGULAIR) 10 mg tablet EVERY EVENING SYMBICORT 160-4.5 mcg/actuation inhaler INHALE 2 PUFFS BY MOUTH TWICE DAILY. RINSE MOUTH AFTER USE ALBUTEROL INHALATION Inhale as instructed. No current facility-administered medications on file prior to visit. Social History Social History Tobacco Use Smoking status: Every Day Packs/day: 1.00 Years: 30.00 Additional pack years: 0.00 Total pack years: 30.00 Types: Cigarettes Smokeless tobacco: Never Substance Use Topics Alcohol use: Yes Comment: OCCASIONALLY Drug use: No EXAM: BP 120/72 Pulse 74 Resp 16 Wt 57.5 kg (126 lb 12.8 oz) LMP 10/13/2006 General Appearance: Well appearing, alert, in no acute distress, well-hydrated, well nourished.. Neck: Supple, no adenopathy; thyroid symmetric, normal size Lungs: Lungs clear to auscultation. No wheezing, rhonchi, rales.. Heart: RRR without murmur, gallop, or rubs. No ectopy. Health Maintenance List Pneumococcal Vaccine(1 of 2 - PCV) Never done DTaP,Tdap,Td Vaccine(1 - Tdap) due on 12/21/2006 Lung Cancer Screening Never done Shingrix Vaccine(1 of 2) Never done Lipid Screening due on 02/01/2014 Diabetes Screening due on 07/08/2016 RSV Vaccine(1 - 1-dose 60+ series) Never done Influenza Vaccine(1) due on 07/30/2023 Covid-19 Vaccine(4 - season) due on 07/30/2023 Mammogram Screening due on 07/02/2024 Pap Testing due on 07/02/2024 HPV Testing due on 07/02/2024 Colorectal Cancer Screening due on 07/02/2024 Hepatitis C Screening due on 07/02/2024 HIV Screening due on 07/02/2024 Annual PCP Team Chronic Disease Visit due on 07/02/2024 Data reviewed Appointment on 12/29/2023 Component Date Value TSH 12/29/2023 3.140 Free T4 12/29/2023 1.6 ASSESSMENT/PLAN: 1. Hypothyroidism, unspecified type - ICD9: 244.9, ICD10: E03.9 (primary diagnosis) - Instructed patient on importance of taking on an empty stomach either first thing in the morning or at bedtime. - continue current dose of Synthroid 0.112 mg - COMP METABOLIC PANEL - TSH BLD 2. Smoker - ICD9: 305.1, ICD10: F17.200 - Cessation encouraged. - Physiologic and physical aspects of tobacco addiction as well as strategies for quitting were discussed. - Counseling was given focusing on the harmful effects of this addiction especially given the patient's medical condition(s) which will be worsened because of the chemicals in tobacco. 3. Screening for lipid disorders - ICD9: V77.91, ICD10: Z13.220 Labs in 6 months - LIPID PANEL BASIC - COMP METABOLIC PANEL 4. Chronic obstructive pulmonary disease, unspecified COPD type (HCC) - ICD9: 496, ICD10: J44.9 Follow with Pulm Follow up in 6 months with fasting labs prior. I agree with the Chief Complaint, ROS, and Past Histories independently gathered by the clinical business support coordinator and the remaining scribed note accurately describes my personal service to the patient. Medical Decision Making: Problems: Moderate: 2+ stable chronic illnesses Data: Unique test result(s) reviewed: 1 Unique test(s) ordered: 3+ Risk: Moderate: Drug management Medical Decision Making Level: 4 - Moderate Jennifer Kulkarni MD The documentation for this note was completed by Shirlene Can Ma acting as scribe for Jennifer Kulkarni MD. January 04, 2024 3:38 PM. Shirlene Can Cali documented in this encounter [facility] 09-08-2023 History of Present illness Narrative Radiology Service Progress Note PATIENT NAME: Abraham Boyd DATE OF SERVICE: September 08, 2023 TIME: 12:01 PM PATIENT IDENTITY VERIFICATION COMPLETED USING TWO (2) IDENTIFIERS: Name and Date of confirmed by patient verbally. FALL SCREENING: Has the patient had 2 falls in the last year or 1 fall with injury or currently using an Ambulatory Assistive Device (Walker, Cane, Wheelchair, Crutches, etc.)? No PATIENT GENDER DATA: Female. status: : No status: NO. PATIENT RELEVANT IMPLANT DATA REVIEWED: Not Applicable RADIOLOGY DEPARTMENT: General X-ray: Exam(s) Completed: Chest X-Ray PERIPHERAL IV DATA: Not applicable SIGNED BY: RT Michelle(R) September 08, 2023 12:01 PM documented in this encounter [facility] 09-08-2023 History of Present illness Narrative Subjective HPI Nontoxic-appearing female presents urgent care chief plaint cough chest congestion. Duration of symptoms 10 days. Associated symptoms productive cough chest congestion. Patient states initially she did have body aches chills night sweats sore throat headache the symptoms have improved. Cough has lingered. Has used OTC medications this is helped little. No known sick contacts. No pain. Risk factors COPD. Denies any high fevers body aches chills today nausea vomiting chest pain shortness of breath that is new hemoptysis pleuritic pain change in bowel or bladder habits. Past medical history prescription medication use allergies reviewed. .Patient presents with: Nasal Congestion: drainage, chest congestion, cough and fever x 10 days PAST MEDICAL HISTORY Diagnosis Date Depressive disorder, not elsewhere classified Other emphysema (HCC) PMH - PAST MEDICAL HISTORY OF 06/29/2008 Fracture right foot Restless legs syndrome (RLS) PAST SURGICAL HISTORY Procedure Laterality Date , CLASSIC, IN-HOSP CARE 1976,1980 PAST SURGICAL HISTORY OF conization ALLERGIES Patient has no known allergies. MEDICATIONS ALBUTEROL INHALATION Inhale as instructed. levothyroxine (SYNTHROID) 112 mcg tablet Take 1 tablet by mouth once daily. Take on empty stomach. For thyroid montelukast (SINGULAIR) 10 mg tablet EVERY EVENING SYMBICORT 160-4.5 mcg/actuation inhaler INHALE 2 PUFFS BY MOUTH TWICE DAILY. RINSE MOUTH AFTER USE FAMILY HISTORY Problem Relation Age of Onset Cervical Cancer Mother Hypertension Mother Breast Cancer Sister Thyroid Maternal Aunt Social History Tobacco Use Smoking status: Every Day Packs/day: 1.00 Years: 30.00 Additional pack years: 0.00 Total pack years: 30.00 Types: Cigarettes Smokeless tobacco: Never Substance Use Topics Alcohol use: Yes Comment: OCCASIONALLY Drug use: No BP 122/74 Pulse 78 Temp 36.7 C (98.1 F) Resp 16 Wt 59 kg (130 lb) LMP 10/13/2006 SpO2 100% BMI 25.39 kg/m Review of Systems Constitutional: Negative for chills, fever and malaise/fatigue. HENT: Positive for congestion. Negative for ear discharge, ear pain, sinus pain and sore throat. Eyes: Negative for blurred vision, pain, discharge and redness. Respiratory: Positive for cough and sputum production. Negative for hemoptysis, shortness of breath, wheezing and stridor. Cardiovascular: Negative for chest pain. Gastrointestinal: Negative for abdominal pain, diarrhea, nausea and vomiting. Musculoskeletal: Negative for myalgias. Skin: Negative for itching and rash. Neurological: Negative for dizziness and headaches. Objective Physical Exam Constitutional: General: She is not in acute distress. Appearance: She is not diaphoretic. HENT: Head: Normocephalic. Jaw: No trismus, tenderness, swelling or pain on movement. Nose: Nose normal. Mouth/Throat: Mouth: Mucous membranes are moist. Pharynx: Oropharynx is clear. Uvula midline. No pharyngeal swelling, oropharyngeal exudate, posterior oropharyngeal erythema or uvula swelling. Eyes: Conjunctiva/sclera: Conjunctivae normal. Pupils: Pupils are equal, round, and reactive to light. Cardiovascular: Rate and Rhythm: Normal rate and regular rhythm. Heart sounds: Normal heart sounds. Pulmonary: Effort: Pulmonary effort is normal. No tachypnea, accessory muscle usage or respiratory distress. Breath sounds: No stridor. Wheezing present. No rhonchi or rales. Abdominal: General: There is no distension. Palpations: Abdomen is soft. Tenderness: There is no abdominal tenderness. There is no guarding or rebound. Musculoskeletal: Cervical back: Normal range of motion and neck supple. No edema, erythema, rigidity or tenderness. No pain with movement. Normal range of motion. Lymphadenopathy: Cervical: No cervical adenopathy. Skin: General: Skin is warm and dry. Neurological: Mental Status: She is alert and oriented to person, place, and time. ASSESSMENT/PLAN: 1. Acute cough - ICD9: 786.2, ICD10: R05.1 (primary diagnosis) - XR CHEST 2V FRONTAL/LAT 2. COPD with exacerbation (HCC) - ICD9: 491.21, ICD10: J44.1 IMPRESSION: No acute radiographic abnormality. Chest x-ray normal. Diagnosed with COPD exacerbation. Placed on doxycycline and prednisone. Follow-up PCP 3 to 5 days symptoms are not improving. Red flags prompt valuation discussed. Patient was educated on supportive therapies. Patient was instructed to immediately proceed to emergency room for any new, worsening, or symptoms lasting longer than anticipated. The patient's clinical presentation is otherwise unremarkable at this time. Based on exam and clinical finding, the patient is stable for discharge. Plan of care was discussed with patient. Patient verbalizes understanding and agrees to plan of care. This note was generated using [employer] software. It may contain errors in wording, punctuation, or spelling. Travis Bryant APRN.KATHIA documented in this encounter [facility] 07-02-2023 History of Present illness Narrative Chief Complaint Patient presents with: F/U 3 Month HPI Abraham Boyd is a 62 year old female who presents here today for 3 month follow up. Pt declined all the HM recommendations today. No bowel, Gi, or urinary issues. No chest pains, dizziness, or SOB. Thyroid: Taking Synthroid 112 mcg daily. Pt's dosage was reduced to 112 mcg daily last visit as pt was c/o of her heart racing and shakiness. She is feeling much better since adjusting dosage. Thinks that it only took a few days of being on new dosage for her sx to resolve. She has not missed dosages. TSH checked 06/28/23 with result of 3.460. Asthma: Stable with Singulair 10 mg daily, Symbicort inhaler BID and Albuterol inhaler prn. Smokes about 1 ppd. Past medical history, appointments, medications, allergies reviewed. Previous Medical History PAST MEDICAL HISTORY Diagnosis Date Depressive disorder, not elsewhere classified Other emphysema (HCC) PMH - PAST MEDICAL HISTORY OF 06/29/2008 Fracture right foot Restless legs syndrome (RLS) Previous Surgical History PAST SURGICAL HISTORY Procedure Laterality Date , CLASSIC, IN-HOSP CARE 1976,1980 PAST SURGICAL HISTORY OF conization Family History FAMILY HISTORY Problem Relation Age of Onset Cervical Cancer Mother Hypertension Mother Breast Cancer Sister Thyroid Maternal Aunt Patient Allergies ALLERGIES No Known Allergies Current Medications Current Outpatient Medications on File Prior to Visit Medication Sig levothyroxine (SYNTHROID) 112 mcg tablet Take 1 tablet by mouth once daily. Take on empty stomach. For thyroid montelukast (SINGULAIR) 10 mg tablet EVERY EVENING SYMBICORT 160-4.5 mcg/actuation inhaler INHALE 2 PUFFS BY MOUTH TWICE DAILY. RINSE MOUTH AFTER USE ALBUTEROL INHALATION Inhale as instructed. (Patient not taking: Reported on 12/01/2021 ) No current facility-administered medications on file prior to visit. Social History Social History Tobacco Use Smoking status: Every Day Packs/day: 1.00 Years: 30.00 Total pack years: 30.00 Types: Cigarettes Smokeless tobacco: Never Substance Use Topics Alcohol use: Yes Comment: OCCASIONALLY Drug use: No EXAM: BP 120/72 Pulse 74 Resp 16 Wt 57.5 kg (126 lb 11.2 oz) LMP 10/13/2006 BMI 24.74 kg/m General Appearance: Well appearing, alert, in no acute distress, well-hydrated, well nourished.. Neck: Supple, no adenopathy; thyroid symmetric, normal size, no bruits. Lungs: Lungs clear to auscultation. No wheezing, rhonchi, rales.. Heart: RRR without murmur, gallop, or rubs. No ectopy. Health Maintenance List PNEUMOCOCCAL(1 - PCV) Never done HEPATITIS C SCREENING Never done HIV SCREENING Never done DTAP,TDAP,TD(1 - Tdap) due on 12/21/2006 LUNG CANCER SCREENING Never done SHINGRIX VACCINE(1 of 2) Never done LIPID SCREEN due on 02/01/2014 COLORECTAL CANCER SCREENING due on 02/16/2014 MAMMOGRAM due on 11/03/2014 DIABETES SCREEN due on 07/08/2016 PAP TESTING due on 11/03/2018 HPV TESTING due on 11/03/2018 INFLUENZA(1) due on 07/30/2023 ANNUAL PCP TEAM CHRONIC DISEASE VISIT due on 04/02/2024 COVID-19 VACCINE Completed Data reviewed Appointment on 06/28/2023 Component Date Value TSH 06/28/2023 3.460 ASSESSMENT/PLAN: 1. Hypothyroidism, unspecified type - ICD9: 244.9, ICD10: E03.9 - Instructed patient on importance of taking on an empty stomach either first thing in the morning or at bedtime. - continue current dose of Synthroid 0.112 mg Stable 2. Smoker - ICD9: 305.1, ICD10: F17.200 - Cessation encouraged. - Physiologic and physical aspects of tobacco addiction as well as strategies for quitting were discussed. - Counseling was given focusing on the harmful effects of this addiction especially given the patient's medical condition(s) which will be worsened because of the chemicals in tobacco. - Counseling was given 3-4 minutes. Follow up in 6 months with labs prior. I agree with the Chief Complaint, ROS, and Past Histories independently gathered by the clinical business support coordinator and the remaining scribed note accurately describes my personal service to the patient. Medical Decision Making: Problems: Low: Stable chronic illness Data: Unique test result(s) reviewed: 1 Unique test(s) ordered: 1 Risk: Moderate: Drug management Medical Decision Making Level: 3 - Low Jennifer Kulkarni MD The documentation for this note was completed by Shirlene Can Ma acting as scribe for Jennifer Kulkarni MD. July 02, 2023 4:10 PM. Shirlene Can Ma documented in this encounter [facility] 04-02-2023 History of Present illness Narrative Chief Complaint Patient presents with: Thyroid Problem: HPI Abraham Boyd is a 62 year old female who presents here today for medication concerns. Pt scheduled for a same day visit. Pt wondering if her thyroid dosage needs to be adjusted. She started having sx of shaking, heart racing and the feeling that she was going to pass out. Also notes that she feels nervous and anxious. This is improving at present time. This started yesterday and she started to feel better later that morning. This occurred again this morning. Pt reports this is what happened before when she had to have the medication adjusted previously. Pt notes that she takes her medicine at 6:00 am on an empty stomach and by 7:00 am when she gets to work her symptoms start up. She denies any chest pain or sob. She is currently taking Synthroid 125 mcg daily. TSH done in January was 1.010. Pt states that her dosage had been reduced to 112 mcg daily and she felt fine on this dosage with no issues. Due to her TSH going to 5.31 three months ago was increased to 125 mcg daily. Past medical history, appointments, medications, allergies reviewed. Previous Medical History PAST MEDICAL HISTORY Diagnosis Date Depressive disorder, not elsewhere classified Other emphysema (HCC) PMH - PAST MEDICAL HISTORY OF 06/29/2008 Fracture right foot Restless legs syndrome (RLS) Previous Surgical History PAST SURGICAL HISTORY Procedure Laterality Date , CLASSIC, IN-HOSP CARE 1976,1980 PAST SURGICAL HISTORY OF conization Family History FAMILY HISTORY Problem Relation Age of Onset Cervical Cancer Mother Hypertension Mother Breast Cancer Sister Thyroid Maternal Aunt Patient Allergies ALLERGIES No Known Allergies Current Medications Current Outpatient Medications on File Prior to Visit Medication Sig levothyroxine (SYNTHROID) 125 mcg tablet Take 1 tablet by mouth once daily. Take on empty stomach. For Thyroid montelukast (SINGULAIR) 10 mg tablet EVERY EVENING SYMBICORT 160-4.5 mcg/actuation inhaler INHALE 2 PUFFS BY MOUTH TWICE DAILY. RINSE MOUTH AFTER USE ALBUTEROL INHALATION Inhale as instructed. (Patient not taking: Reported on 12/01/2021 ) No current facility-administered medications on file prior to visit. Social History Social History Tobacco Use Smoking status: Every Day Packs/day: 1.00 Years: 30.00 Pack years: 30.00 Types: Cigarettes Smokeless tobacco: Never Substance Use Topics Alcohol use: Yes Comment: OCCASIONALLY Drug use: No EXAM: BP 148/94 Pulse 62 Resp 16 Wt 58.6 kg (129 lb 3.2 oz) LMP 10/13/2006 BMI 25.23 kg/m General Appearance: Well appearing, alert, in no acute distress, well-hydrated, well nourished.. Lungs: Lungs clear to auscultation. No wheezing, rhonchi, rales.. Heart: RRR without murmur, gallop, or rubs. No ectopy. Health Maintenance List PNEUMOCOCCAL(1 - PCV) Never done HEPATITIS C SCREENING Never done HIV SCREENING Never done DTAP,TDAP,TD(1 - Tdap) due on 12/21/2006 LUNG CANCER SCREENING Never done SHINGRIX VACCINE(1 of 2) Never done LIPID SCREEN due on 02/01/2014 COLORECTAL CANCER SCREENING due on 02/16/2014 MAMMOGRAM due on 11/03/2014 DIABETES SCREEN due on 07/08/2016 PAP TESTING due on 11/03/2018 HPV TESTING due on 11/03/2018 ANNUAL PCP TEAM CHRONIC DISEASE VISIT due on 10/07/2023 INFLUENZA Completed COVID-19 VACCINE Completed Data reviewed Appointment on 02/17/2023 Component Date Value TSH 02/17/2023 1.010 Free T4 02/17/2023 1.6 TPO ANTIBODY 02/17/2023 <3.0 ASSESSMENT/PLAN: 1. Hypothyroidism, unspecified type - ICD9: 244.9, ICD10: E03.9 (primary diagnosis) - Instructed patient on importance of taking on an empty stomach either first thing in the morning or at bedtime. - check TSH today - Reduce to 112 mcg daily - check in 3 months 2. Racing heart beat - ICD9: 785.0, ICD10: R00.0 - As noted above 3. Shaking - ICD9: 781.0, ICD10: R25.1 - As noted above 3 mo f/u with labs. I agree with the Chief Complaint, ROS, and Past Histories independently gathered by the clinical business support coordinator and the remaining scribed note accurately describes my personal service to the patient. Medical Decision Making: Problems: Moderate: 1+ chronic illnesses with change Data: Unique test(s) ordered: 1 Risk: Moderate: Drug management Medical Decision Making Level: 4 - Moderate Jennifer Kulkarni MD The documentation for this note was completed by Keya Salgado Ma acting as scribe for Jennifer Kulkarni MD. April 02, 2023 10:11 AM. Keya Salgado Ma documented in this encounter [facility] 02-18-2023 Miscellaneous Notes Letter mailed to pt home of results. Shirlene aCn MA Can you please call the patient and let her know that her thyroid testing is within normal limits. I would recommend she continue current Synthroid dosing and we continue to monitor thyroid levels. We can recheck levels in 3 months or sooner if she develops any symptoms. Let me know if she has any questions. Thank you. Meg Finley APRN.KATHIA documented in this encounter [facility] 12-31-2022 Miscellaneous Notes Patient returned call and went over results, notes from Meg Finley [employer] with understanding. Aware rx to pharmacy. TC to pt. LM to call office, ask for triage nurse to get results. Trista Dietz LPN Can you please call the patient and let her know that I reviewed her lab results. TSH was increased, T4 was normal. I am going to slightly increase her Synthroid dose to 125 mcg daily. I want to get repeat labs in 6 weeks. I ordered an additional lab as well to evaluate the fluctuations she has been having with the TSH. Please let me know if she has any questions. Thank you. Meg Finley APRN.KATHIA The following approved medication requests have been transmitted electronically. Requested Prescriptions Signed Prescriptions Disp Refills levothyroxine (SYNTHROID) 125 mcg tablet 30 tablet 5 Sig: Take 1 tablet by mouth once daily. Take on empty stomach. For Thyroid Authorizing Provider: MEG FINLEY APRN.CNP documented in this encounter [facility] 10-07-2022 History of Present illness Narrative This is a 61 year old female who presents today with: Patient presents with: Follow Up: 1 month follow up HISTORY OF PRESENT ILLNESS: Abraham Boyd is a 61 year old female. Patient presents with: Follow Up: 1 month follow up Here in the office for 1 month follow up. Started on Paxil 10 mg. Took for 2 days then stopped. Thyroid labs came back abnormal, synthroid adjusted she stopped the paxil. Symptoms of anxiety resolved once Synthroid dosage was adjusted. No difficulty sleeping, palpitations, or cold/heat intolerances. Denies any increased sadness, anxiety, or Si/Hi. Synthroid reduced to 112 mcg in July due to low TSH. PAST MEDICAL HISTORY: PAST MEDICAL HISTORY Diagnosis Date Depressive disorder, not elsewhere classified Other emphysema (HCC) PMH - PAST MEDICAL HISTORY OF 06/29/2008 Fracture right foot Restless legs syndrome (RLS) PAST SURGICAL HISTORY Procedure Laterality Date , CLASSIC, IN-HOSP CARE 1976,1980 PAST SURGICAL HISTORY OF conization ALLERGIES Patient has no known allergies. MEDICATIONS Current Outpatient Medications Medication Sig levothyroxine (SYNTHROID) 112 mcg tablet Take 1 tablet by mouth once daily. Take on empty stomach. For thyroid montelukast (SINGULAIR) 10 mg tablet EVERY EVENING PARoxetine (PAXIL) 10 mg tablet Take 1 tablet by mouth once daily. SYMBICORT 160-4.5 mcg/actuation inhaler INHALE 2 PUFFS BY MOUTH TWICE DAILY. RINSE MOUTH AFTER USE ALBUTEROL INHALATION Inhale as instructed. (Patient not taking: Reported on 12/01/2021 ) No current facility-administered medications for this visit. FAMILY HISTORY Problem Relation Age of Onset Cervical Cancer Mother Hypertension Mother Breast Cancer Sister Thyroid Maternal Aunt Social History Tobacco Use Smoking status: Every Day Packs/day: 1.00 Years: 30.00 Pack years: 30.00 Types: Cigarettes Smokeless tobacco: Never Substance Use Topics Alcohol use: Yes Comment: OCCASIONALLY Drug use: No REVIEW OF SYSTEMS GENERAL: No weight loss, malaise or fevers/chills HEENT: Negative for frequent or significant headaches, No changes in hearing or vision. NECK: Negative for lumps, goiter, pain and significant neck swelling RESPIRATORY: Negative for cough, hemoptysis, wheezing, dyspnea or shortness of breath CARDIOVASCULAR: Negative for chest pain, leg swelling, orthopnea, or palpitations GI: No nausea, vomiting, or diarrhea/constipation. No hematochezia/melena. No heartburn or reflux symptoms. : No history of dysuria, frequency or incontinence MUSCULOSKELETAL: Negative for joint pain or swelling. SKIN: Negative for lesions, rash, and itching ENDOCRINE: Negative for cold or heat intolerance, polyuria, polydipsia and goiter NEURO: No history of headaches, syncope, paralysis, seizures or tremors MOOD: Negative for depression, anxiety, or suicidal ideation. EXAM: BP 140/72 Pulse 79 Resp 16 Wt 58.5 kg (129 lb) LMP 10/13/2006 SpO2 98% BMI 25.19 kg/m PHYSICAL EXAM: General Appearance: Well appearing, alert, in no acute distress, well-hydrated, well nourished. Skin: Skin color, texture, turgor normal, no suspicious rashes or lesions. Head: Normocephalic, no masses, lesions, tenderness or abnormalities. Eyes: Anicteric sclera. Extraocular movements are intact. Neck: Supple, no adenopathy; thyroid symmetric, normal size, no bruits. Lungs: Lungs clear to auscultation. No wheezing, rhonchi, rales. Heart: RRR without murmur, gallop, or rubs. No ectopy. Extremities: No deformities, edema, skin discoloration, clubbing or cyanosis. Good capillary refill. Peripheral Pulses: Normal, Capillary refill <2secs, strong peripheral pulses, Pulses palpable. Neurologic: Gait normal. Reflexes normal and symmetric. Sensation grossly intact. ASSESSMENT/PLAN: 1. Hypothyroidism, unspecified type - ICD9: 244.9, ICD10: E03.9 - Instructed patient on importance of taking on an empty stomach either first thing in the morning or at bedtime. - continue current dose of Synthroid 0.112 mg Stable - Continue current medications - Get repeat labs in 3 months. - TSH BLD - T4 FREE/FREE THYROX Follow-up pending test results or sooner as needed. Discussed treatment plan and patient voices understanding. Patient's questions answered appropriately. Medications and potential side effects were discussed and patient voices understanding. Meg Finley APRN.KATHIA This note was partially generated using [employer] voice recognition system. Note was reviewed for accuracy. There may be minor misspellings or grammar miscues with [employer] voice recognition. documented in this encounter [facility] 10-07-2022 Instructions Meg Finley APRN.CNP - 10/07/2022 5:15 PM EST Get repeat thyroid labs completed in December. Continue to take medication as prescribed. Follow up pending test results or sooner as needed. documented in this encounter [facility] 09-03-2022 Miscellaneous Notes Patient returned call and went over notes. Patient said she is doing her TSH end of the month and rescheduled appt for 09/30/2022 with Meg Finley. TC to pt. LM to call office, ask for triage nurse to either move appt earlier in the day or change to a different day. Trista Dietz LPN documented in this encounter [facility] 08-12-2022 Miscellaneous Notes Spoke with patient. Given message from provider's office. Patient verbalizes understanding. Haydee Wild RN TC to pt. LM to call office, ask for triage nurse to get results. Trista Dietz LPN Can you please call the patient and let her know that I reviewed her lab results. TSH is low, I would like to decrease her current Synthroid dosage to 112 mcg daily and recheck labs in 6 weeks. A new prescription has been sent to her pharmacy. Please let me know if she has any questions. Thank you. The following approved medication requests have been transmitted electronically. Requested Prescriptions Signed Prescriptions Disp Refills levothyroxine (SYNTHROID) 112 mcg tablet 30 tablet 11 Sig: Take 1 tablet by mouth once daily. Take on empty stomach. For thyroid Authorizing Provider: MEG FINLEY APRN.CNP documented in this encounter [facility] 08-10-2022 Instructions Meg Finley APRN.CNP - 08/10/2022 3:11 PM EDT 1.) Get labs completed. 2.) Start taking Paxil 10 mg daily. May start Buspar 5 mg up to three times per day for anxiety. 3.) Follow up in 1 month or sooner as needed. documented in this encounter [facility] 08-10-2022 History of Present illness Narrative This is a 61 year old female who presents today with: Patient presents with: Follow Up: ER [facility] HISTORY OF PRESENT ILLNESS: Abraham Boyd is a 61 year old female. Patient presents with: Follow Up: ER [facility] HOSPITAL/ER FOLLOW UP: Reason for visit: General illness Which facility: [facility] ER Date of visit: 08/08/2022 Diagnosis: General Illness Testing done: Abnormal orthostatic vital signs, therefore IV fluids were given with repeat orthostats that returned to within normal limits. Lab work-up and urine unremarkable, however TSH was low (history of hypothyroidism). EKG was normal. Treated for anxiety. Treatment given: IV fluids, Ativan 1 mg, prescription for Ativan at discharge 0.5 mg 3 times daily as needed, quantity 10. Symptoms resolved with treatment. Current symptoms: Had another episode today after going into work. Had fear prior to work she would have another episode. Started to get shaky, weak, and felt like she was going to pass. Heart felt like it was beating fast. Took 1 ativan which relieved symptoms. Denies any increased anxiety at home or work. No SI/HI. Has taken Prozac in the past for sadness. [place] like she didn't need anymore therefore stopped it. PAST MEDICAL HISTORY: PAST MEDICAL HISTORY Diagnosis Date Depressive disorder, not elsewhere classified Other emphysema (HCC) PMH - PAST MEDICAL HISTORY OF 06/29/2008 Fracture right foot Restless legs syndrome (RLS) PAST SURGICAL HISTORY Procedure Laterality Date , CLASSIC, IN-HOSP CARE 1976,1980 PAST SURGICAL HISTORY OF conization ALLERGIES Patient has no known allergies. MEDICATIONS Current Outpatient Medications Medication Sig levothyroxine (SYNTHROID) 137 mcg tablet Take 1 tablet by mouth daily before breakfast. SYMBICORT 160-4.5 mcg/actuation inhaler INHALE 2 PUFFS BY MOUTH TWICE DAILY. RINSE MOUTH AFTER USE ALBUTEROL INHALATION Inhale as instructed. (Patient not taking: Reported on 12/01/2021 ) No current facility-administered medications for this visit. FAMILY HISTORY Problem Relation Age of Onset Cervical Cancer Mother Hypertension Mother Breast Cancer Sister Thyroid Maternal Aunt Social History Tobacco Use Smoking status: Former Packs/day: 0.50 Years: 30.00 Pack years: 15.00 Types: Cigarettes Smokeless tobacco: Never Substance Use Topics Alcohol use: Yes Comment: OCCASIONALLY Drug use: No REVIEW OF SYSTEMS GENERAL: No weight loss, malaise or fevers/chills HEENT: Negative for frequent or significant headaches, No changes in hearing or vision. NECK: Negative for lumps, goiter, pain and significant neck swelling RESPIRATORY: Negative for cough, hemoptysis, wheezing, dyspnea or shortness of breath CARDIOVASCULAR: Negative for chest pain, leg swelling, orthopnea, or palpitations GI: No nausea, vomiting, or diarrhea/constipation. No hematochezia/melena. No heartburn or reflux symptoms. : No history of dysuria, frequency or incontinence MUSCULOSKELETAL: Negative for joint pain or swelling. SKIN: Negative for lesions, rash, and itching ENDOCRINE: Negative for cold or heat intolerance, polyuria, polydipsia and goiter NEURO: No history of headaches, syncope, paralysis, seizures or tremors MOOD: + Anxious EXAM: BP (P) 134/80 Pulse (P) 69 Wt (P) 59.4 kg (131 lb) LMP 10/13/2006 SpO2 (P) 97% BMI (P) 25.58 kg/m PHYSICAL EXAM: General Appearance: Well appearing, alert, in no acute distress, well-hydrated, well nourished. Skin: Skin color, texture, turgor normal, no suspicious rashes or lesions. Head: Normocephalic, no masses, lesions, tenderness or abnormalities. Eyes: Anicteric sclera. Extraocular movements are intact. Neck: Supple, no adenopathy; thyroid symmetric, normal size, no bruits. Lungs: Lungs clear to auscultation. No wheezing, rhonchi, rales. Heart: RRR without murmur, gallop, or rubs. No ectopy. Extremities: No deformities, edema, skin discoloration, clubbing or cyanosis. Good capillary refill. Peripheral Pulses: Normal, Capillary refill <2secs, strong peripheral pulses, Pulses palpable. Neurologic: Gait normal. Sensation grossly intact. ASSESSMENT/PLAN: 1. Anxiety with depression - ICD9: 300.4, ICD10: F41.8 (primary diagnosis) - Start Paxil 10 mg daily. - May try Buspar 5 mg up to 3 times per day. - PAROXETINE 10 MG TABLET - BUSPIRONE 5 MG TABLET 2. Abnormal thyroid blood test - ICD9: 790.6, ICD10: R79.89 - Due to abnormal TSH at ER will get further thyroid labs completed. - TSH BLD - T4 FREE/FREE THYROX - T3 BLD - THYROID PEROXIDASE ANTIBODY BLOOD Follow up in 1 month or sooner as needed. Discussed treatment plan and patient voices understanding. Patient's questions answered appropriately. Medications and potential side effects were discussed and patient voices understanding. Meg Finley APRN.STAGE SETTING PAINTER APPRENTICE This note was partially generated using [employer] voice recognition system. Note was reviewed for accuracy. There may be minor misspellings or grammar miscues with [employer] voice recognition. documented in this encounter [facility] 08-10-2022 Miscellaneous Notes ER follow-up appointment fpr anxiety scheduled for this afternoon. Patient reports that she had an episode of shaking and feeling like she was going to pass out last week at work. She went to [facility] ED and they told her it was anxiety related and gave her Ativan. Patient reports that she went back to work today and had the same thing happen again. Patient requesting appointment this afternoon. Aniya Reno RN documented in this encounter [facility] Evaluation note Diagnosis Encounter for screening mammogram for breast cancer [facility] Diagnosis Onset Date Resolution Status Asthma-COPD overlap syndrome chronic Smoking greater than 30 pack years [facility] Work Phone: evaluation note* Diagnosis Anxiety with depression- Primary Abnormal thyroid blood test Nonspecific abnormal results of thyroid function study [facility] Diagnosis Hypothyroidism, unspecified type- Primary [facility] Diagnosis Hypothy[facility], unspecified type- Primary [facility] Diagnosis Hypothyroidism, unspecified type- Primary [facility] Diagnosis Hypothyroidism, unspecified type- Primary [facility] Diagnosis Hypothyroidism, unspecified type- Primary Racing heart beat Tachycardia, unspecified Shaking Abnormal involuntary movements [facility] Diagnosis Hypothyroidism, unspecified type- Primary Smoker Tobacco use disorder [facility] Diagnosis Acute cough- Primary COPD with exacerbation (HCC) Obstructive chronic bronchitis with exacerbation [facility] Diagnosis Hypothyroidism, unspecified type- Primary Smoker Tobacco use disorder Screening for lipid disorders Chronic obstructive pulmonary disease, unspecified COPD type (HCC) [facility] noteNo assessment information availableWClermont [facility] Work Phone: evaluation note* Diagnosis Hypothyroidism, unspecified type [facility] Diagnosis Hypothyroidism, unspecified type- Primary Chronic obstructive pulmonary disease, unspecified COPD type (HCC) Encounter for screening examination for other mental health and behavioral disorders [facility] Diagnosis Tobacco abuse Tobacco use disorder documented in this encounter [facility] note* Diagnosis Acute cough documented in this encounter [facility] note* Diagnosis Hypothyroidism, unspecified type- Primary Screening for colon cancer Special screening for malignant neoplasms, colon Encounter for Medicare annual wellness exam Routine general medical examination at a health care facility Chronic obstructive pulmonary disease, unspecified COPD type (HCC) Smoker Tobacco use disorder Hyperlipidemia, unspecified hyperlipidemia type documented in this encounter [facility] note* Diagnosis Hypothyroidism, unspecified type documented in this encounter [facility] note* Diagnosis Bacterial sinusitis- Primary Unspecified sinusitis (chronic) Acute cough Acute cough documented in this encounter [facility] note* Diagnosis Acute cough documented in this encounter [facility] note* Diagnosis Bacterial sinusitis- Primary Unspecified sinusitis (chronic) documented in this encounter [facility] note* Diagnosis Encounter for screening mammogram for breast cancer [facility] Diagnostic Procedure Only (Routine) - Pending Review Specialty Diagnoses / Procedures Referred By Sal posada Referred To Contact [facility] Diagnoses Encounter for screening mammogram for breast cancer Procedures BRAIN SCREENING SCREENING MAMMOGRAPHY BI 2-VIEW BREAST INC Jennifer Byrd MD [address] [place] [address] [facility] [address] [place] [id number] Referral ID Status Reason Start Date Expiration Date Visits Requested Visits Authorized [id number] Pending Review Auto-Generat ed Referral 05/27/2022 06/26/2023 1 1 [facility] for referral (narrative)No reason for referral information availableWClermont [facility] Work Phone: Chief Complaint and Reason for Visit Chief Complaint 6 M FU GENERALIZED Reason for Visit Asthma-COPD overlap syndrome Smoking greater than 30 pack years Chief Complaint SMOKER > 30 PK YRS 6 M FU Reason for Visit Asthma-COPD overlap syndrome Smoking greater than 30 pack years Chief Complaint RANDOM NON DOT DRUG & BAT SCREEN/ [facility] NICOTINE DEP Chief Complaint Admit Date COPD February 15, 2025 8:3 1am Chief Complaint Admit Date COPD February 15, 2025 8:3 1am NICOTINE DEP February 24, 2025 8:3 9am Chief Complaint Admit Date COPD February 15, 2025 8:3 1am NICOTINE DEP February 24, 2025 8:3 9am COPD March 08, 2025 1:3 8pm COPD March 12, 2025 11: 24am Advance Directives No Advanced Directives Records Found Advance Directive Response Recorded Date/ Time Living Will No August 08, 2022 8:55am Power of Batting Machine Operator No July 8:55am Advance Directive Response Recorded Date/ Time Living Will No April 21, 2023 4 :28pm Power of Batting Machine Operator No April 21, 2023 4:28pm Advance Directive Response Recorded Date/ Time Living Will No April 21, 2023 4 :28pm Do you have a Healthcare Power of Batting Machine Operator? No April 21, 2023 4:28pm Summary Purpose Family History No Family History Records Found Additional Source Comments Source Comments (unrecognize d section and content) In the event this informatio n is protected by the Federal Confidentiality of Alcohol and Drug Abuse Patient Records regulations: The Federal rules restrict any use of the information to criminally investigate or prosecute any alcohol or drug abuse patient.[facility] the event this information is protected by the Federal Confidentiality of Alcohol and Drug Abuse Patient Records regulations: The Federal rules restrict any use of the information to criminally investigate or prosecute any alcohol or drug abuse patient.[facility] HospitalIn the event this information is protected by the Federal Confidentiality of Alcohol and Drug Abuse Patient Records regulations: The Federal rules restrict any use of the information to criminally investigate or prosecute any alcohol or drug abuse patient.[facility] HospitalIn the event this information is protected by the Federal Confidentiality of Alcohol and Drug Abuse Patient Records regulations: The Federal rules restrict any use of the information to criminally investigate or prosecute any alcohol or drug abuse patient.[facility] HospitalIn the event this information is protected by the Federal Confidentiality of Alcohol and Drug Abuse Patient Records regulations: The Federal rules restrict any use of the information to criminally investigate or prosecute any alcohol or drug abuse patient.[facility] HospitalIn the event this information is protected by the Federal Confidentiality of Alcohol and Drug Abuse Patient Records regulations: The Federal rules restrict any use of the information to criminally investigate or prosecute any alcohol or drug abuse patient.[facility] HospitalIn the event this information is protected by the Federal Confidentiality of Alcohol and Drug Abuse Patient Records regulations: The Federal rules restrict any use of the information to criminally investigate or prosecute any alcohol or drug abuse patient.[facility] HospitalIn the event this information is protected by the Federal Confidentiality of Alcohol and Drug Abuse Patient Records regulations: The Federal rules restrict any use of the information to criminally investigate or prosecute any alcohol or drug abuse patient.[facility] HospitalIn the event this information is protected by the Federal Confidentiality of Alcohol and Drug Abuse Patient Records regulations: The Federal rules restrict any use of the information to criminally investigate or prosecute any alcohol or drug abuse patient.[facility] HospitalIn the event this information is protected by the Federal Confidentiality of Alcohol and Drug Abuse Patient Records regulations: The Federal rules restrict any use of the information to criminally investigate or prosecute any alcohol or drug abuse patient.[facility] HospitalIn the event this information is protected by the Federal Confidentiality of Alcohol and Drug Abuse Patient Records regulations: The Federal rules restrict any use of the information to criminally investigate or prosecute any alcohol or drug abuse patient.[facility] HospitalIn the event this information is protected by the Federal Confidentiality of Alcohol and Drug Abuse Patient Records regulations: The Federal rules restrict any use of the information to criminally investigate or prosecute any alcohol or drug abuse patient.[facility] HospitalIn the event this information is protected by the Federal Confidentiality of Alcohol and Drug Abuse Patient Records regulations: The Federal rules restrict any use of the information to criminally investigate or prosecute any alcohol or drug abuse patient.[facility] HospitalIn the event this information is protected by the Federal Confidentiality of Alcohol and Drug Abuse Patient Records regulations: The Federal rules restrict any use of the information to criminally investigate or prosecute any alcohol or drug abuse patient.[facility] HospitalIn the event this information is protected by the Federal Confidentiality of Alcohol and Drug Abuse Patient Records regulations: The Federal rules restrict any use of the information to criminally investigate or prosecute any alcohol or drug abuse patient.[facility] HospitalIn the event this information is protected by the Federal Confidentiality of Alcohol and Drug Abuse Patient Records regulations: The Federal rules restrict any use of the information to criminally investigate or prosecute any alcohol or drug abuse patient.[facility] HospitalIn the event this information is protected by the Federal Confidentiality of Alcohol and Drug Abuse Patient Records regulations: The Federal rules restrict any use of the information to criminally investigate or prosecute any alcohol or drug abuse patient.[facility] HospitalIn the event this information is protected by the Federal Confidentiality of Alcohol and Drug Abuse Patient Records regulations: The Federal rules restrict any use of the information to criminally investigate or prosecute any alcohol or drug abuse patient.[facility] HospitalIn the event this information is protected by the Federal Confidentiality of Alcohol and Drug Abuse Patient Records regulations: The Federal rules restrict any use of the information to criminally investigate or prosecute any alcohol or drug abuse patient.[facility] HospitalIn the event this information is protected by the Federal Confidentiality of Alcohol and Drug Abuse Patient Records regulations: The Federal rules restrict any use of the information to criminally investigate or prosecute any alcohol or drug abuse patient.[facility] HospitalIn the event this information is protected by the Federal Confidentiality of Alcohol and Drug Abuse Patient Records regulations: The Federal rules restrict any use of the information to criminally investigate or prosecute any alcohol or drug abuse patient.[facility] HospitalIn the event this information is protected by the Federal Confidentiality of Alcohol and Drug Abuse Patient Records regulations: The Federal rules restrict any use of the information to criminally investigate or prosecute any alcohol or drug abuse patient.[facility] HospitalIn the event this information is protected by the [facility] Confidentiality of Alcohol and Drug Abuse Patient Records regulations: The Federal rules restrict any use of the information to criminally investigate or prosecute any alcohol or drug abuse patient.[facility] HospitalIn the event this information is protected by the Federal Confidentiality of Alcohol and Drug Abuse Patient Records regulations: The Federal rules restrict any use of the information to criminally investigate or prosecute any alcohol or drug abuse patient.[facility] Care Teams (unrecognized sec tion and content) Camp Counselor Relationship Specialty Start Date End Date Jennifer Kulkarni MD [address] [place], [place] [id number] PCP - General Family Practice 02/16/20 Camp Counselor Relationship Specialty Start Date End Date Jennifer Kulkarni MD [address] [place], [place] [id number] PCP - General Family Practice 02/16/20 Camp Counselor Relationship Specialty Start Date End Date Jennifer Kulkarni MD [address] [place], [place] [id number] PCP - General Family Practice 02/16/20 Camp Counselor Relationship Specialty Start Date End Date Jennifer Kulkarni MD [address] [place] [address] PCP - General Family Practice 02/16/20 Camp Counselor Relationship Specialty Start Date End Date Jennifer Kulkarni MD [address] [place] [address] PCP - General Family Medicine 02/16/20 Camp Counselor Relationship Specialty Start Date End Date Jennifer Kulkarni MD [address] [place] [address] PCP - General Family Medicine 02/16/20 Team Status: Active Member Role Status Dates Dr. Jennifer Kulkarni MD Primary Care Provider Active Team Status: Inactive Member Role Status Dates Dr. Jennifer Kulkarni MD Primary Care Provider, Referr ing Provider Active Gini Paiz WEBMETHODS CONSULTANT, WEBMETHODS CONSULTANT-C Attending Provider Active Team Status: Inactive Member Role Status Dates Dr. Jennifer uKlkarni MD Primary Care Provider Active Gini Paiz WEBMETHODS CONSULTANT, WEBMETHODS CONSULTANT-C Attending Provider, Referrin g Provider Active Camp Counselor Relationship Specialty Start Date End Date Jennifer Kulkarni MD [address] [place] [address] PCP - General Family Medicine 02/16/20 Camp Counselor Relationship Specialty Start Date End Date Jennifer Kulkarni MD [address] [place] [address] PCP - General Family Medicine 02/16/20 Camp Counselor Relationship Specialty Start Date End Date Jennifer Kulkarni MD [address] [place] [address] PCP - General Family Medicine 02/16/20 Camp Counselor Relationship Specialty Start Date End Date Jennifer Kulkarni MD [address] [place] [address] PCP - General Family Medicine 02/16/20 Team Status: Inactive Member Role Status Dates Dr. Jennifer Kulkarni MD Primary Care Provider, Referr ing Provider Active Bradley ROSA, PA Attending Provider Active Camp Counselor Relationship Specialty Start Date End Date Jennifer Kulkarni MD [address] [place] [address] PCP - General Family Medicine 02/16/20 Camp Counselor Relationship Specialty Start Date End Date Jennifer Kulkarni MD [address] [place] [address] PCP - General Family Medicine 02/16/20 Camp Counselor Relationship Specialty Start Date End Date Jennifer Kulkarni MD [address] [place] [address] PCP - General Family Medicine 02/16/20 Camp Counselor Relationship Specialty Start Date End Date Jennifer Kulkarni MD [address] [place] [address] PCP - General Family Medicine 02/16/20 Meg Finley APRN.STAGE SETTING PAINTER APPRENTICE [address] [place] [address] Cost Control Supervisor Family Medicine 11/05/24 Johnathan Zuniga APRN.STAGE SETTING PAINTER APPRENTICE [address] [place] [address] Cost Control Supervisor Family Medicine 11/14/24 Team Status: Inactive Member Role Status Dates Dr. Jennifer Kulkarni MD Primary Care Provider Active Start: February 15, 2025 End: February 15, 2025 Gini Paiz WEBMETHODS CONSULTANT, WEBMETHODS CONSULTANT-C Attending Provider Active Start: February 15, 2025 End: February 15, 2025 Gini Paiz WEBMETHODS CONSULTANT, WEBMETHODS CONSULTANT-C Referring Provider Active Start: February 15, 2025 End: February 15, 2025 Team Status: Inactive Member Role Status Dates Dr. Jennifer Kulkarni MD Primary Care Provider Active Start: February 24, 2025 End: February 24, 2025 Gini Paiz WEBMETHODS CONSULTANT, WEBMETHODS CONSULTANT-C Attending Provider Active Start: February 24, 2025 End: February 24, 2025 Gini Paiz WEBMETHODS CONSULTANT, WEBMETHODS CONSULTANT-C Referring Provider Active Start: February 24, 2025 End: February 24, 2025 Camp Counselor Relationship Specialty Start Date End Date Jennifer Kulkarni MD [address] [facility], [place] [address] PCP - General Family Medicine 02/16/20 Meg Finley, FINGERER.STAGE SETTING PAINTER APPRENTICE [address] [facility], [place] [address] Cost Control Supervisor Family Medicine 11/05/24 Johnathan Zuniga, FINGERER.STAGE SETTING PAINTER APPRENTICE [address] [facility], [place] [address] [facility] 11/14/24 Team Status: Inactive Member Role Status Dates Dr. Jennifer Kulkarni MD Primary Care Provider Active Start: March 08, 2025 End: March 08, 2025 Gini Paiz WEBMETHODS CONSULTANT, WEBMETHODS CONSULTANT-C Attending Provider Active Start: March 08, 2025 End: March 08, 2025 Gini Paiz WEBMETHODS CONSULTANT, WEBMETHODS CONSULTANT-C Referring Provider Active Start: March 08, 2025 End: March 08, 2025 Team Status: Active Member Role Status Dates Dr. Jennifer Kulkarni MD Primary Care Provider Active Start: March 12, 2025 Gini Paiz WEBMETHODS CONSULTANT, WEBMETHODS CONSULTANT-C Referring Provider Active Start: March 12, 2025 Gini Paiz WEBMETHODS CONSULTANT, WEBMETHODS CONSULTANT-C Other Provider Active Start: March 12, 2025 Dr. Parminder Jackson DO Attending Provider Active S tart: March 12, 2025 Camp Counselor Relationship Specialty Start Date End Date Jennifer Kulkarni MD [address] [place] [address] PCP - General Family Medicine 02/16/20 Johnathan Zuniga APRN.STAGE SETTING PAINTER APPRENTICE [address] [place] [address] Cost Control Supervisor Family Medicine 11/14/24 Camp Counselor Relationship Specialty Start Date End Date Jennifer Kulkarni MD [address] [place] [address] PCP - General Family Medicine 02/16/20 Johnathan Zuniga APRN.STAGE SETTING PAINTER APPRENTICE [address] [place] [address] Cost Control Supervisor Family Medicine 11/14/24 Camp Counselor Relationship Specialty Start Date End Date Jennifer Kulkarni MD [address] [place] [address] PCP - General Family Medicine 02/16/20 Johnathan Zuniga APRN.STAGE SETTING PAINTER APPRENTICE [address] [place] [address] Cost Control Supervisor Family Medicine 11/14/24 Camp Counselor Relationship Specialty Start Date End Date Jennifer Kulkarni MD [address] [place] [address] PCP - General Family Medicine 02/16/20 Johnathan Zuniga APRN.STAGE SETTING PAINTER APPRENTICE [address] [place] [address] Cost Control Supervisor Family Medicine 11/14/24 Camp Counselor Relationship Specialty Start Date End Date Jennifer Kulkarni MD [address] [place] [address] PCP - General Family Medicine 02/16/20 Johnathan Zuniga APRN.STAGE SETTING PAINTER APPRENTICE [address] [place], [place] [address] [facility] 11/[facility] Camp Counselor Relationship Specialty Start Date End Date Jennifer Kulkarni MD [address] [place], [place] [id number] PCP - General Family Medicine 02/16/20 Johnathan Zuniga APRN.STAGE SETTING PAINTER APPRENTICE [address] [place], [place] [id number] Cost Control Supervisor [facility] 11/14/24 Goals (unrecognized section and content) Goals may be documented in a n alternate sectionGoals may be documented in an alternate sectionGoals may be documented in an alternate sectionGoals may be documented in an alternate sectionGoals may be documented in an alternate sectionGoals may be documented in an alternate section Reason for Visit (unrecogniz ed section and content) Reason Comments Appointment Reason Comments Follow Up [facility] Reason Comments Results Orders Reason Comments Follow Up 1 month follow up Reason Comments Results Labs Reason Comments Results Labs, thyroid Reason Comments Thyroid Problem Reason Comments F/U 3 Month Reason Comments Nasal Congestion drainage, chest jorge estion, cough and fever x 10 days Reason Comments 6 Month Exam Reason Onset Date Comments Refill Request 05/17/2024 Reason Comments F/U 6 Month Reason Comments Medicare Wellness Exam Reason Onset Date Comments Population Health Navigation Outreach 03/09/2025 Cologuard Outreach Reason Onset Date Comments Refill Request 06/18/2025 Reason Comments Cough Chest Congestion Reason Comments Follow Up Cough, fatigue INFORMATION SOURCE (unrecogn ized section and content) DATE CREATED AUTHOR 05/19/2025 [facility] DATE CREATED AUTHOR AUTHOR'S ORGANIZ ATION 08/24/2025 [facility] FOR RECORDS PERTAINING TO PATIENTS WHO ARE OR HAVE BEEN ENROLLED IN A CHEMICAL DEPENDENCY/SUBSTANCEABUSE PROGRAM, SOME INFORMATION MAY BE OMITTED. This clinical summary was aggregated from multiple sources. Caution should be exercised in using it in the provision of clinical care. This summary normalizes information from multiple sources, and as a consequence, information in this document may materially change the coding, format and clinical context of patient data. In addition, data may be omitted in some cases. CLINICAL DECISIONS SHOULD BE BASED ON THE PRIMARY CLINICAL RECORDS. [facility]. provides no warranty or guarantee of the accuracy or completeness of information in this document.
== END 2020-12-31 15:42 | disposition home or self-care (01) ==
LOC: ED 02:58 → ICU 04:40 → PCU 12-31 07:34 → ICU 11-06 14:52
PROVIDERS: Admitting Provider Family Medicine; Emergency Provider Emergency Medicine; PCP Family Medicine
DX: J12.89 Other viral pneumonia (principal); J44.1 Chronic obstructive pulmonary disease with (acute) exacerbation; J44.0 Chronic obstructive pulmonary disease with (acute) lower respiratory infection; J96.01 Acute respiratory failure with hypoxia; R35.0 Frequency of micturition; F17.210 Nicotine dependence, cigarettes, uncomplicated; E03.9 Hypothyroidism, unspecified; Z79.890 Hormone replacement therapy; I95.9 Hypotension, unspecified; Z23 Encounter for immunization
CPT/HCPCS: G0378 ×2; G0463; 71045; 80048; 80053; 82728; 83605; 83615; 83735; 83880; 84145; 84484; 85025; 85379; 86140; 87040; 87070; 87205; 87426; 87449; 87633; 87635; 93005; 94640; 96360; 96361; 96372; 97802; 99221; 99251; 99285; 99406; 90686; A4216; U0002

== ENCOUNTER 2021-01-20 16:00 | Emergency (ER) | payer MEDICAID, SELFPAY ==
[2021-01-13 10:48] VITALS: BMI 26.7
[2021-01-20] VITALS (7 sets, daily range): BP systolic 96–119; BP diastolic 54–87; PULSE 71–88; RESP 12–16; TEMP 36.8; O2SAT 94–100; BMI 25.4
[2021-01-20 16:15] LABS: Bedside Glucose 114 mg/dL (70-110)
--- NOTE | 2021-01-20 16:19 | EKG12_ITS ---
Test Reason : SYNCOPE Blood Pressure : / mmHG Vent. Rate : 074 BPM Atrial Rate : 074 BPM P-R Int : 170 ms QRS Dur : 084 ms QT Int : 382 ms P-R-T Axes : 063 058 057 degrees QTc Int : 424 ms Normal sinus rhythm Normal ECG Confirmed by DAQUAN SCHOFIELD, [place] ([id number]), photography editor VICTOR HUGO BAILEY ([id number]) on 01/22/2021 12:46:19 PM Referred By: DEENA Confirmed By:LA BUTT MD
--- NOTE | 2021-01-20 16:20 | RAD_ITS ---
STUDY: X-RAY CHEST REASON FOR EXAM: Female, 60 years old. Lightheadedness, dizziness TECHNIQUE: Single AP portable view of the chest. COMPARISON: 12/30/2020 FINDINGS: EKG leads overlie the chest The lungs are clear and expanded. There is no demonstrated pleural abnormality. Normal size heart. Normal mediastinum and chacorta. Normal visualized pulmonary arteries. Normal visualized aortic arch and descending thoracic aorta. Normal visualized thoracic spine. Normal visualized ribs, clavicles, and shoulders. There is no demonstrated abnormality of the visualized soft tissue structures of the upper abdomen. RAD/Chest 1 View (Portable) IMPRESSION: No acute pulmonary process Electronically Signed: Rajinder Arias MD at 16:35 EST , Service support ,
--- NOTE | 2021-01-20 16:22 | ED.DCSUM_ITS ---
History of Present Illness Chief Complaint: Syncope Informant: Patient Narrative: Patient is a 60-year-old female presenting from work via EMS after a near syncopal episode. Patient was hospitalized at the beginning this month with viral pneumonia from rhinovirus. She was discharged home with as needed oxygen with activity. She was at work today to just walked back from the bathroom and sat down when she started to feel lightheaded. Patient felt like she was going to pass out so she laid herself on the ground. EMS was called from work and she was brought to the ER to be evaluated. This all occurred within an hour prior to arrival. She states for the past days she has felt like she is starting to come down with something. She denies any cough. She does not feel short of breath anymore than she has for the past month. She denies chest pain but does note some chest pressure. She denies any swelling of her legs. She denies any history of DVT or PE. She denies any GI or symptoms. No other complaints at this time. She does note that since her discharge from the hospital she has had episodes of activity intolerance and lightheadedness but never to this degree. She notes she has appointment tomorrow to follow-up for her lung function testing. Past Medical History - Allergies and Home Meds Allergies/Adverse Reactions: Allergies No Known Allergies Allergy (Verified 01/20/21 16:02) Primary Care Physician: Huseyin Deleon MD [Primary Care Provider] - Past Medical History: - - Thyroid disorder Surgical History: noncontributory, - - x1, resection of cervical cancer. Smoking Status: Current some day smoker - Family History Maternal Family History: Family History (Last Reviewed 01/13/21 @ 11:04 by Gini Paiz NP, PHARMACEUTICAL ANALYST-C) Mother Cancer Family History: Reports: Cancer - Patient has a paternal family history of lung cancer with concurrent tobacco use. Paternal Family History: Family History (Last Reviewed 01/13/21 @ 11:04 by Gini Paiz NP, PHARMACEUTICAL ANALYST-C) Mother Cancer Family History: Reports: Unknown - Patient does not know any of her paternal family history. Review of Systems General: Reports: Malaise, - - Lightheaded. Denies: Chills, Fever, Sweats Eyes: Denies: Visual changes - bilaterally, Diplopia ENT: Denies: Rhinorrhea, Sore throat Cardiovascular: Reports: Chest pain - Pressure. Denies: Palpitations Respiratory: Reports: Dyspnea on exertion. Denies: Dyspnea, Cough Gastrointestinal: Denies: Abdominal pain, Nausea, Vomiting, Diarrhea, Melena, Hematochezia Genitourinary: Denies: Dysuria, Hematuria, Frequency Musculoskeletal: Denies: Back pain, Extremity Pain Skin: Denies: Rash, Wounds Neurological: Denies: Headache, Weakness, Numbness Physical Exam Vital Signs/Narrative: Vital Signs Temp Pulse Resp BP Pulse Ox 01/20/21 16:05 78 15 116/87 H 97 01/20/21 16:02 98.3 F 78 16 116/87 H 98 Inital Vital Signs reviewed: Yes General: Well nourished, Well developed, No Acute Distress Head: Normocephalic, Atraumatic Eyes: Perrl, EOMI ENT: Moist mucous membranes, No rhinorrhea Neck: Supple, Nontender, No JVD Cardiovascular: Regular rate, Regular rhythm, No murmurs Respiratory: No distress, CTA bilaterally, Chest nontender. Negative for: Wheezing, Diminished Abdomen: Soft, Nontender, Nondistended, Normal bowel sounds Back: Nontender, Normal Inspection Extremities: Nontender, No edema. Negative for: Edema, Calf Tenderness Skin: Normal color, No rash Neurological: Alert, Oriented x3, Cranial nerves II-XII grossly intact, Normal Strength, Normal Sensation Psychological: Normal affect, Normal Mood Diagnostic/Tx/Re-eval Chest X-Ray - ED: 1 View, Read by ED Physician, Read by Radiologist, No Acute Disease Clinical Impression(s) from Imaging Studies Chest X-Ray 01/20/21 16:20 IMPRESSION: No acute pulmonary process Electronically Signed: Rajinder Arias MD at 16:35 EST , Service support , Chest CTA 01/20/21 16:54 IMPRESSION: No demonstrated PE, or thoracic aortic aneurysm or dissection Underlying emphysema with chronic interstitial changes, and chronic bronchitis but no superimposed acute pulmonary process Degenerative bony changes Electronically Signed: Rajinder Arias MD at 17:30 EST , Service support , Laboratory Data 01/20/21 01/20/21 01/20/21 16:09 16:11 16:11 WBC 6.0 RBC 4.46 Hgb 14.1 Hct 42.1 MCV 94.4 MCH 31.6 MCHC 33.5 RDW Std Deviation 43.0 RDW Coeff of Stewart 12.3 Plt Count 249 MPV 11.0 Immature Gran % (Auto) 0.300 Neut % (Auto) 72.4 H Lymph % (Auto) 18.0 L [place] % (Auto) 7.0 Eos % (Auto) 1.8 Baso % (Auto) 0.5 Absolute Neuts (auto) 4.3 Absolute Lymphs (auto) 1.08 Nucleated RBC % 0 D-Dimer Quant (PE/DVT) 2.47 H* Sodium Potassium Chloride Carbon Dioxide Anion Gap BUN Creatinine Estim Creat Clear Calc Est GFR (MDRD) Af Amer Est GFR (MDRD) Non-Af BUN/Creatinine Ratio Glucose Calcium Troponin I B-Natriuretic Peptide Urine Color Urine Clarity Urine pH Ur Specific [place] Urine Protein Urine Glucose (UA) Urine Ketones Urine Occult Blood Urine Nitrite Urine Bilirubin Urine Urobilinogen Ur Leukocyte Esterase Urine RBC Urine WBC Ur Squamous Epith Cells Urine Bacteria Urine Mucus POC Glucose 114 H 01/20/21 01/20/21 01/20/21 16:11 16:11 17:55 WBC RBC Hgb Hct MCV MCH MCHC RDW Std Deviation RDW Coeff of Stewart Plt Count MPV Immature Gran % (Auto) Neut % (Auto) Lymph % (Auto) [place] % (Auto) Eos % (Auto) Baso % (Auto) Absolute Neuts (auto) Absolute Lymphs (auto) Nucleated RBC % D-Dimer Quant (PE/DVT) Sodium 136 Potassium 3.5 Chloride 102 Carbon Dioxide 27.0 Anion Gap 7 BUN 13 Creatinine 0.97 Estim Creat Clear Calc 50.38 Est GFR (MDRD) Af Amer 75 Est GFR (MDRD) Non-Af 62 BUN/Creatinine Ratio 13.5 Glucose 117 H Calcium 9.2 Troponin I < 0.015 B-Natriuretic Peptide 37.4 Urine Color Straw Urine Clarity Clear Urine pH 7.0 Ur Specific [place] 1.005 Urine Protein Negative Urine Glucose (UA) Normal Urine Ketones Negative Urine Occult Blood Negative Urine Nitrite Negative Urine Bilirubin Negative Urine Urobilinogen Normal Ur Leukocyte Esterase Negative Urine RBC 0 SEEN Urine WBC 0 SEEN Ur Squamous Epith Cells 0 SEEN Urine Bacteria 0 SEEN Urine Mucus 0 SEEN POC Glucose - Rhythm Strip Rhythm Strip: Sinus Rhythm Rate: 74 Ectopy: None - EKG Initial EKG Interpretation: Sinus Rhythm, - - Sinus rhythm at a rate of 74 Normal axis Normal intervals Normal ST segments - Medical Decision Making Patient evaluated for presyncopal episode while at work. Patient's just been feeling weak and almost as if she is coming down with something for the past day. She knows she is also been feeling weak since she was discharged from the hospital to begin this month. She has had some associated chest heaviness but denies any chest pain. Has nausea but no vomiting. Says she has been having normal bowel movements however while in the ER she did have a couple episodes of diarrhea. Patient's orthostatics are negative. She does have some mild shakiness and weakness when she goes from sitting to standing. She is given IV fluids in the ER. CBC is normal relatively normal. BMP is only remarkable for glucose of 117. Troponin is negative. Patient does not have any concerning EKG changes. BNP is 37.4, normal. Urinalysis is normal. D-dimer is obtained because patient did have a recent hospitalization, is over the age of 50 and is complaining of some mild shortness of breath presyncopal symptoms. This is elevated. CTA does not show any PE but does show emphysematous changes with no acute process. Patient will be discharged home. The exact cause of her symptoms is not clear however she is counseled that at this time she does not require hospitalization. She is encouraged to follow-up closely with her primary care doctor. Patient is given a work note for the next 2 days per her request. ED Disposition - Plan for ED Patient: Disposition: Home or Assisted Living Diagnosis: Syncope, near Instructions: ED Near-Fainting, Uncertain Cause Referrals: Huseyin Deleon MD [Primary Care Provider] -
[2021-01-20 16:39] LABS: Absolute Lymphocyte Count 1.08 X10^3/uL (0.83-4.51); Absolute Neutrophil Count 4.3 X10^3/uL (2.0-7.7); Basophil# 0.03 X10^3/uL; Basophil% 0.5 % (0-1); Eosinophil# 0.11 X10^3/uL; Eosinophils% 1.8 % (0-5); Hematocrit 42.1 % (37-47); Hemoglobin 14.1 g/dL (12.0-15.0); Lymphocyte # 1.08 X10^3/ul (4.0); Mean Corp Hgb Conc 33.5 g/dL (32-36); Mean Corpuscular Hgb 31.6 pg (27.0-32.0); Mean Corpuscular Volume 94.4 fL (81-99); Monocyte# 0.42 X10^3/uL; NRBC Flagged by Analyzer 0 % (0-5); Neutrophil # 4.33 X10^3/uL (2.7-7.7); Neutrophil % 72.4 % (47-70); Platelet Count 249 K/mm3 (150-450); RBC Distribution Width CV 12.3 % (11.6-14.6); Red Blood Count 4.46 M/mm3 (4.2-5.4)
[2021-01-20] MEDS: 0.9% Normal Saline 1,000 ML 999 ML IV (16:40)
[2021-01-20 16:49] LABS: D-Dimer Quantitative (DVT/PE) 2.47 FEU/ug/m (0.27-0.49)
[2021-01-20 16:54] LABS: Anion Gap 7 (5-15); BUN 13 mg/dL (7-18); BUN/Creat Ratio 13.5 RATIO (10-20); Calcium,Total 9.2 mg/dL (8.5-10.1); Chloride 102 mmol/L (98-107); Creatinine, Serum 0.97 mg/dL (0.55-1.02); EST Glomerular Filtration Rate 62 mL/min (>60); Est Glom Filt Rate - Afr Amer 75 mL/min (>60); Estimated Creatinine Clearance 50.38 ml/min; Glucose 117 mg/dL (74-106); Potassium 3.5 mmol/L (3.5-5.1); Sodium Level 136 mmol/L (136-145)
--- NOTE | 2021-01-20 16:54 | CT_ITS ---
STUDY: CTA CHEST REASON FOR EXAM: Female, 60 years old. Elevated dimer, presyncope RADIATION DOSAGE (If Supplied By Facility): CTDIvol = ( 4.99 ) mGy, DLP = ( 181.63 ) mGycm TECHNIQUE: The examination was performed with the intravenous administration of IV 100mL Isovue-370. Post-processing of the angiographic images was performed, with multiplanar reformation and 3D reconstruction. Individualized dose optimization techniques were used for this CT. COMPARISON: None. FINDINGS: Normal enhancement of the main pulmonary artery and right and left pulmonary arteries. Normal enhancement of the bilateral peripheral pulmonary arteries. There is no demonstrated pulmonary embolism. Normal thoracic aorta and visualized great vessels. There is no demonstrated aortic dissection. Normal heart and pericardium. Normal mediastinum. Normal hilar regions. There is peribronchial thickening. The lungs are well expanded. There is underlying emphysema with bleb formation in the upper lobes. There is no organized infiltrate, or suspicious groundglass opacifications, no suspicious noncalcified mass or nodule. Normal pleura. Normal chest wall structures. There are degenerative changes of thoracic spine. Limited cuts through the upper abdomen show a simple hepatic cyst CT/CTA Chest W/WO Contrast IMPRESSION: No demonstrated PE, or thoracic aortic aneurysm or dissection Underlying emphysema with chronic interstitial changes, and chronic bronchitis but no superimposed acute pulmonary process Degenerative bony changes Electronically Signed: Rajinder Arias MD at 17:30 EST , Service support ,
[2021-01-20 17:21] LABS: BNP,B-Type NATRIURETIC PEPTIDE 37.4 pg/mL (0-100)
[2021-01-20 18:16] LABS: Bacteria 0 SEEN /hpf (None Seen); Mucous, Urine 0 SEEN /hpf (<or=2+); Red Blood Cells-Urine 0 SEEN /hpf (0-5); Squamous Epithelial Cells - UA 0 SEEN /hpf (5-10); White Blood Cells 0 SEEN /hpf (0-5)
[2021-01-20 18:33] LABS: Color, Urine Straw (Yellow); Glucose, Dipstick Normal (Normal); Ketone-Dipstick Negative (Negative); Leukocyte Esterase-Dipstick Negative /ul (Negative); Nitrite-Dipstick Negative (Negative); Occult Blood-Urine Negative /ul (Negative); Protein-Dipstick Negative (Negative); Specific Gravity, Urine 1.005 (1.002-1.030); Urine Bilirubin Dipstick Negative (Negative); Urine Clarity Clear (Clear); Urine Urobilinogen Normal (Normal)
== END 2021-01-20 20:32 | disposition home or self-care (01) ==
PROVIDERS: Emergency Provider Emergency Medicine; PCP Family Medicine
DX: R55 Syncope and collapse (principal); E07.9 Disorder of thyroid, unspecified; Z80.1 Family history of malignant neoplasm of trachea, bronchus and lung; Z85.41 Personal history of malignant neoplasm of cervix uteri; J43.9 Emphysema, unspecified
CPT/HCPCS: 71045; 71275; 80048; 81001; 82962; 83880; 84484; 85025; 85379; 93005; 96360; 96361; 99285; Q9967

== ENCOUNTER → 2021-01-30 08:02 | Outpatient (CLI) | payer OTHER, MEDICAID, SELFPAY ==
[2021-01-13 10:48] VITALS: BMI 26.7
[2021-01-20 16:02] VITALS: BMI 25.4
--- NOTE | 2021-01-30 16:37 | PFTCOMP_ITS ---
COMPLETE PULMONARY FUNCTION TEST INTERPRETATION Brief HPI: Patient is a 60 year old female, currently under the care of Gini Paiz, who presents to [facility] for complete pulmonary function tests secondary to diagnosis of dyspnea. Respiratory therapist reports good effort and reproducible results. Interpretation: Forced expiration spirometry shows no large airways obstructive ventilatory defect with an FEV1 of 101% predicted. There is no significant bronchodilator r esponse by strict ATS criteria. Spirograms are of good quality and plateau slowly, indicating slowly emptying areas of the lungs. The respiratory flow volume loop shows decreased expiratory flow rates at high lung volumes consistent with small airways obstruction. Lung volumes by body plethysmography show a normal total lung capacity at 4.3 L, 105% predicted. All other lung volumes are within normal limits. Diffusion capacity by carbon monoxide is normal at 85% predicted. The airway resistance is normal. No previous pulmonary function tests were available for review. Impression: Grossly normal pulmonary function test, but some stigmata of small airways disease. Consider bronchoprovocation study
== END ==
PROVIDERS: PCP Family Medicine; Referring Provider Nurse Practitioner Acute Care; Visit Provider Nurse Practitioner Acute Care
DX: R06.02 Shortness of breath (principal)
CPT/HCPCS: 94060; 94726; 94729

== ENCOUNTER → 2021-02-11 11:01 | Outpatient (CLI) | payer OTHER, MEDICAID, SELFPAY ==
[2021-01-13 10:48] VITALS: BMI 26.7
[2021-01-20 16:02] VITALS: BMI 25.4
[2021-02-11 11:20] VITALS: PULSE 100; PULSE 107; PULSE 110; PULSE 75; PULSE 78; PULSE 94; PULSE 98; O2SAT 92; O2SAT 93; O2SAT 94; O2SAT 95; O2SAT 96
--- NOTE | 2021-02-11 13:55 | WT_ITS ---
PSN 6 Minute Walk Test - 6 Minute Walk Test 6 Minute Walk Test: 6 Minute Walk Test PSN:6-Minute Walk Test Start: 02/11/21 11:19 Freq: Status: Active Protocol: [id number].[id number] Document 02/11/21 11:20 ROGE (Rec: 02/11/21 11:22 ROGE [id number]) 6 Minute Walk Test Date Performed 02/11/21 Time Performed 11:15 Height 5 ft Weight: 60.328 kg Weight in Pounds 133.[address]: Gini Paiz EMOTIONAL SUPPORT TEACHER Assistive device used: None Pre-test Oxygen Delivery Method Room Air Pulse Ox (%) 96 Pulse Rate (60-100 beats/min) 78 Dyspnea Masha Scale (0-10) 0 Exertion Masha Scale (6-20) 6 1st minute Oxygen Delivery Method Room Air Pulse Ox (%) 95 Pulse Rate (60-100 beats/min) 94 2nd minute Oxygen Delivery Method Room Air Pulse Ox (%) 92 Pulse Rate (60-100 beats/min) 98 3rd minute Oxygen Delivery Method Room Air Pulse Ox (%) 92 Pulse Rate (60-100 beats/min) 110 H 4th minute Oxygen Delivery Method Room Air Pulse Ox (%) 93 Pulse Rate (60-100 beats/min) 107 H 5th minute Oxygen Delivery Method Room Air Pulse Ox (%) 92 Pulse Rate (60-100 beats/min) 100 6th minute Oxygen Delivery Method Room Air Pulse Ox (%) 94 Pulse Rate (60-100 beats/min) 100 Dyspnea Masha Scale (0-10) 1 Exertion Masha Scale (6-20) 12 Post-test Oxygen Delivery Method Room Air Pulse Ox (%) 96 Pulse Rate (60-100 beats/min) 75 Full Laps Walked 16 Partial Lap, Number of Tiles Walked 12 Total Distance Walked (ft) 956 - Interpretation Interpretation: The patient was able to ambulate 956 feet over the course of 6 minutes on room air with no assistive devices or breaks. The patient did experience desaturation as low as 92%, but also had tachycardia as high as 110 bpm. These findings are consistent with deconditioning. - Recommendations Recommendations: No supplemental oxygen is indicated at this time
== END ==
PROVIDERS: PCP Family Medicine; Referring Provider Nurse Practitioner Acute Care; Visit Provider Nurse Practitioner Acute Care
DX: R06.02 Shortness of breath (principal)
CPT/HCPCS: 94618

== ENCOUNTER → 2021-02-18 08:21 | Outpatient (CLI) | payer OTHER, MEDICAID, SELFPAY ==
[2021-02-18 07:46] VITALS: BMI 26.9
== END ==
PROVIDERS: PCP Family Medicine; Referring Provider Nurse Practitioner Acute Care; Visit Provider Nurse Practitioner Acute Care
DX: J44.9 Chronic obstructive pulmonary disease, unspecified (principal)
CPT/HCPCS: 36415

== ENCOUNTER → 2021-07-14 15:46 | Outpatient (CLI) | payer OTHER, MEDICAID, SELFPAY ==
[2021-03-19 15:41] VITALS: BMI 26.8
== END ==
PROVIDERS: PCP Family Medicine; Referring Provider Nurse Practitioner Acute Care; Visit Provider Nurse Practitioner Acute Care
DX: E88.01 Alpha-1-antitrypsin deficiency (principal)
CPT/HCPCS: 36415

== ENCOUNTER 2022-01-07 06:49 | Outpatient (CLI) | payer OTHER, MEDICAID, SELFPAY ==
--- NOTE | 2022-01-08 10:43 | PFT ---
INTRODUCTION: The patient is a 61-year-old female that presents for pulmonary function studies secondary to a diagnosis of shortness of breath. Respiratory therapy reported good patient effort. Bronchodilators were used during testing. INTERPRETATION: Forced expiration spirometry demonstrates the presence of a mild large airways obstructive ventilatory defect. There was no significant response to aerosolized bronchodilators. Spirograms are of good quality and plateau normally. Body plethysmography was performed and reveals lung volumes to be within normal limits. Diffusing capacity by single breath CO is also within normal limits. IMPRESSION: Irreversible mild large airways obstructive ventilatory defect with preserved lung volumes and diffusing capacity.
== END 2022-01-07 23:59 | disposition home or self-care (01) ==
LOC: PSN 06:51
PROVIDERS: PCP Family Medicine; Referring Provider Internal Medicine Critical Care Medicine; Visit Provider Internal Medicine Critical Care Medicine
DX: E88.01 Alpha-1-antitrypsin deficiency (principal); J45.909 Unspecified asthma, uncomplicated; F17.210 Nicotine dependence, cigarettes, uncomplicated
CPT/HCPCS: 94060; 94726; 94729

== ENCOUNTER 2022-02-03 15:46 | Outpatient (CLI) | payer OTHER, MEDICAID, SELFPAY ==
--- NOTE | 2022-02-03 15:53 | CT_ITS ---
STUDY: LOW DOSE CT LUNG CANCER SCREENING REASON FOR EXAM: Female, 61 years old. Smoker. 30 pack-year history. RADIATION DOSAGE (If Supplied By Facility): CTDIvol = ( 2.01 ) mGy, DLP = ( 73.24 ) mGycm TECHNIQUE: No contrast was administered. Low dose technique was utilized (average mAS-38 and kVp 120). 1.25 mm axial source images with a slice interval of 1.25-mm were reconstructed in lung windows. 2.5 mm axial source images with a slice interval of 2.5-mm were reconstructed in lung windows. 5.0 mm axial source images with a slice interval of 5.0-mm were reconstructed in soft tissue windows. Nodule measured using lung windows on PACS and/or independent workstation with automated measurement of minimum and maximum diameter. Nodule measurement reported as average diameter rounded to the nearest whole number. Growth is defined as an increase ins size of greater than 1.5 mm. COMPARISON: CT of the chest, 01/20/2021. NODULES: Total lung nodules (excluding granulomas): 0 Emphysema: There are diffuse emphysematous changes throughout the lungs. Bilateral apical pleural scarring is again noted Endobronchial lesion: None Aorta: Normal Coronary arteries: Normal Heart: Normal Pulmonary artery: Normal Mediastinal nodes: Other chest and abdominal findings: Cyst in segment [address]/Low Dose CT Lung Screening IMPRESSION: Lung-RADS category 1 - Continue annual screening with LDCT in 12 months. IMPORTANT NOTES FOR USE: ACR Lung-RADS Version 1.1 Assessment Categories Release Date: 2018 Category: Coded 0-4 bases on nodule(s) with highest degree of suspicion. Negative screen is defined as categories 1 and 2; a positive screen is defined as categories 3 and 4. Category 3 and 4A nodules that are unchanged on interval CT should be coded as category 2, and individuals returned to screening in 12 months. Category 4X: Category 3 or 4 nodules with additional imaging findings that increase the suspicion of lung cancer, such as spiculation, GGN that doubles in size in 1 year, enlarged lymph notes, etc. Category Modifiers: S (significant finding unrelated to lung cancer) Electronically Signed: Jarod Judd DO at 23:51 EST Reading Location ID and State: [id number] Tel [phone], Service support ,
== END 2022-02-03 23:59 | disposition home or self-care (01) ==
PROVIDERS: PCP Family Medicine; Referring Provider Nurse Practitioner Acute Care; Visit Provider Nurse Practitioner Acute Care
DX: Z12.2 Encounter for screening for malignant neoplasm of respiratory organs (principal); F17.210 Nicotine dependence, cigarettes, uncomplicated
CPT/HCPCS: 71271

== ENCOUNTER 2022-08-08 08:24 | Emergency (ER) | payer OTHER, MEDICAID, SELFPAY ==
[2022-08-08 08:25] VITALS: BP 131/77; PULSE 68; RESP 18; TEMP 36.6; O2SAT 100; BMI 26.2
--- NOTE | 2022-08-08 08:45 | EKG12_ITS ---
Test Reason : GEN ILLNESS Blood Pressure : / mmHG Vent. Rate : 063 BPM Atrial Rate : 063 BPM P-R Int : 164 ms QRS Dur : 078 ms QT Int : 408 ms P-R-T Axes : 052 052 048 degrees QTc Int : 417 ms Normal sinus rhythm Normal ECG Confirmed by DAQUAN SCHOFIELD, [place] ([id number]), scientific editor VICTOR HUGO BAILEY ([id number]) on 08/10/2022 11:12:22 AM Referred By: KEATON Confirmed By:LA BUTT MD
--- NOTE | 2022-08-08 08:46 | EX.ED.DYSGE1 ---
HPI History of Present Illness Chief Complaint: General Illness Detail of Chief Complaint: Not feeling well with symptoms that started this morning Informant: patient Narrative Narrative: Patient presents to the emergency department with complaint of not feeling well. Patient states that she was at work this morning sitting when she started feeling very shaky. Patient felt like she might pass out. She felt like maybe her hands were not working right and she could not really move her legs well. She had never had an episode like this before. She describes an episode last night of feeling like her eyes were not working right that lasted less than a minute. She denies a headache. She denies chest pain. She denies shortness of breath. She denies recent illness. She denies urinary symptoms. Prior similar symptoms: No PFSH [facility] Medical History (Updated 08/08/22 @ 11:[address] Carolyn Bernardo, ) Acute respiratory failure with hypoxia Cervical cancer Thyroid disorder Viral pneumonia Wheezing Home Medications levothyroxine 137 mcg tablet 137 mcg PO DAILY thyroid 12/30/20 [History Last Taken Unknown] albuterol sulfate 90 mcg/actuation aerosol inhaler 1 - 2 puff inhalation Q4H PRN PRN Shortness Of Breath ##1 01/13/21 [Rx Last Taken Unknown] budesonide-formoterol HFA 160 mcg-4.5 mcg/actuation aerosol inhaler (Symbicort) 2 puff inhalation BID #1 ea 04/22/22 [Rx Last Taken Unknown] montelukast 10 mg tablet 10 mg PO QPM #90 tabs 05/25/22 [Rx Last Taken Unknown] lorazepam 0.5 mg tablet (Ativan) 0.5 mg PO TID PRN anxiety #10 tabs 08/08/22 [Rx Last Taken Unknown] Allergy/AdvReac Type Severity Reaction Status Date / Time No Known Allergies Allergy Verified 08/08/22 08:27 Family History Mother Cancer Lung Surgical History No pertinent past surgical history Social History Smoking Status: Current some day smoker tobacco type: cigarettes Tobacco: How many years used: 48 alcohol intake: current alcohol intake frequency: 0-2 drinks per day Alcohol type: beer ROS ROS ED Review of Systems ROS Unobtainable: other Constitutional Constitutional ED: Reports lethargy; Denies chills, fever(s), sweats or weight loss Eyes Eyes: Denies blurry vision, change in vision or diplopia ENT ENT ED: Denies rhinorrhea or sore throat Cardiovascular Cardiovascular: Denies chest pain, orthopnea or racing heartbeat Respiratory/Chest Respiratory/Chest: Denies cough, dyspnea, dyspnea on exertion, orthopnea or sputum Gastrointestinal Gastrointestinal: Denies abdominal pain, diarrhea, nausea or vomiting Genitourinary Genitourinary ED: Denies dysuria, hematuria or urinary frequency Musculoskeletal Musculoskeletal: Denies arthralgias, back pain, myalgias or neck pain Integumentary Denies abscess, Abrasions or rash Neurologic Neurologic: Reports other Details: Near syncope, transient decreased function of hands and legs. ; Denies headache(s) or weakness Psychiatric Psychiatric: Denies anxiety, depression or suicidal thoughts Endocrine Endocrinology: Denies polydipsia, polyphagia or polyuria Hematologic/Lymphatic Hematologic/Lymphatic: Denies easy bleeding, easy bruising or lymphadenopathy Allergic/Immunologic Allergic/Immunologic ED: Denies mouth swelling, tongue swelling or urticaria EXAM Physical Exam Const Vital Signs: 08/08/22 08:25 08/08/22 08:55 08/08/22 09:04 Temperature 97.9 F Temperature Source Temporal Pulse Rate 68 Pulse Rate [Lying] 69 Pulse Rate [Sitting (for 1 minute prior to obtaining)] 72 Pulse Rate [Standing (for 1 minute prior to obtaining)] 83 Respiratory Rate 18 Respiratory Effort Normal Non-Labored Blood Pressure 131/77 H Blood Pressure [Lying] 122/52 H Blood Pressure [Sitting (for 1 minute prior to obtaining)] 93/65 Blood Pressure [Standing (for 1 minute prior to obtaining)] 101/64 Blood Pressure Mean 95 Blood Pressure Mean [Lying] 75 Blood Pressure Mean [Sitting (for 1 minute prior to obtaining)] 74 Blood Pressure Mean [Standing (for 1 minute prior to obtaining)] 76 Pulse Ox 100 Oxygen Delivery Method Room Air 08/08/22 10:32 08/08/22 10:59 Temperature Temperature Source Pulse Rate 71 Pulse Rate [Lying] 70 Pulse Rate [Sitting (for 1 minute prior to obtaining)] 61 Pulse Rate [Standing (for 1 minute prior to obtaining)] 64 Respiratory Rate 20 H Respiratory Effort Blood Pressure 112/49 L Blood Pressure [Lying] 134/61 H Blood Pressure [Sitting (for 1 minute prior to obtaining)] 113/66 Blood Pressure [Standing (for 1 minute prior to obtaining)] 106/49 L Blood Pressure Mean 70 Blood Pressure Mean [Lying] 85 Blood Pressure Mean [Sitting (for 1 minute prior to obtaining)] 81 Blood Pressure Mean [Standing (for 1 minute prior to obtaining)] 68 Pulse Ox 97 Oxygen Delivery Method Room Air Positive well nourished and well developed General Appearance ED: well developed and NAD HEENT Reports TM's clear and moist mucous membranes normocephalic and atraumatic; Negative for trauma or tenderness Tympanic Membrane ED: Yes TM's clear Eyes PERRL and EOMs intact bilaterally General Eye ED: Negative for pale conjunctiva or scleral icterus Neck no lymphadenopathy, supple and no JVD General: Negative for tenderness Chest Wall inspection of chest normal and palpation of chest normal Chest: Negative for tenderness Resp normal respiratory effort and clear to auscultation bilaterally Effort and Inspection: Negative for respiratory distress or pain with movement Auscultation: Negative for rhonchi, wheezes or diminished lung sounds Cardio regular rate, regular rhythm, S1 normal heart sound, S2 normal heart sound and no murmurs Peripheral Pulses: pulses 2+ throughout GI normal to inspection, nondistended, normoactive bowel sounds, soft to palpation, non-tender, non-distended and no masses Back/Spine no CVA tenderness and no thoracic nor lumbar tenderness Extremity normal to inspection General Extremety ED: Negative for edema General Extremity: Negative for edema Neuro oriented x3, CN's II-XII intact bilaterally, no sensory deficits noted and gait normal Neuro Narrative: Finger-nose and heel grajeda testing within normal limits, negative Romberg, negative pronator drift, fundi benign NIH stroke scale 0. Sensorium / Orientation: awake, alert, oriented to person, oriented to place and oriented to time Motor Exam: strength 5/5 throughout and strength abnormal Psych mental status grossly normal Skin no rashes or lesions noted and no wounds MDM MDM MDM Narrative Medical decision making narrative: IV line established on arrival. Initial orthostatics did show a drop in her systolic from lying to sitting therefore she received a liter mostly of fluid bolus. Repeat orthostatics were normal. She did receive Ativan 1 mg IV and she is currently symptom-free. Patient states that her shaking has stopped. Patient feels well. Lab work-up was unremarkable and urinalysis was unremarkable. EKG was unremarkable. I suspect her symptomatology most consistent with anxiety. Patient will be given a prescription for Ativan for as needed. She is advised to follow-up with primary care physician in 3 to 5 days. Lab Data Attestation: I reviewed the patient's lab results. Labs: Laboratory Results - last 24 hr 08/08/22 08/08/22 08/08/22 08:50 08:50 09:55 WBC 6.0 RBC 4.66 Hgb 15.3 H Hct 44.9 MCV 96.4 MCH 32.8 H MCHC 34.1 RDW Std Deviation 45.1 H RDW Coeff of Stewart 12.7 Plt Count 238 MPV 10.9 Immature Gran % (Auto) 0.300 Neut % (Auto) 59.1 Lymph % (Auto) 25.1 [place] % (Auto) 11.8 H Eos % (Auto) 3.2 Baso % (Auto) 0.5 Absolute Neuts (auto) 3.6 Absolute Lymphs (auto) 1.51 Nucleated RBC % 0 Sodium 138 Potassium 4.0 Chloride 105 Carbon Dioxide 28.0 Anion Gap 5 BUN 10 Creatinine 0.82 Estim Creat Clear Calc 66.22 Est GFR (MDRD) Af Amer 90 Est GFR (MDRD) Non-Af 75 BUN/Creatinine Ratio 12.2 Glucose 87 Calcium 9.2 Troponin I High Sens 10 TSH 0.03 L Urine Color Yellow Urine Clarity Clear Urine pH 7.0 Ur Specific Cobb 1.005 Urine Protein Negative Urine Glucose (UA) Normal Urine Ketones Negative Urine Occult Blood Negative Urine Nitrite Negative Urine Bilirubin Negative Urine Urobilinogen Normal Ur Leukocyte Esterase Negative EKG Initial EKG: Attestation: I personally reviewed and interpreted this EKG as follows: Comments: Sinus rhythm with a ventricular rate of 63 bpm with no acute ST segment changes. Discharge Plan Triage Chief Complaint: General Illness ED Provider: Carolyn Bernardo Dx/Rx/DC Orders Clinical Impression: Anxiety reaction, Near syncope Instructions: ED Anxiety Reaction, ED Near-Fainting, Uncertain Cause Prescriptions: New lorazepam [Ativan] 0.5 mg tablet 0.5 mg PO TID PRN (Reason: anxiety) Qty: 10 0RF No Action albuterol sulfate 90 mcg/actuation HFA aerosol inhaler 1 - 2 puff INHALATION Q4H PRN PRN (Reason: Shortness Of Breath) Qty: 1 11RF levothyroxine 137 MCG tablet 137 mcg PO DAILY budesonide-formoterol [Symbicort] 160-4.5 mcg/actuation HFA aerosol inhaler 2 puff INHALATION BID Qty: 1 6RF Rx Instructions: administer with spacer, rinse mouth after each use montelukast 10 mg tablet 10 mg PO QPM Qty: 90 3RF Primary Care Provider: Huseyin Deleon Referrals: Huseyin Deleon MD [Primary Care Provider] - 3-5 Days Disposition Disposition: Home, Self Care
[2022-08-08 09:04] VITALS: BP 101/64; BP 122/52; BP 93/65; PULSE 69; PULSE 72; PULSE 83
[2022-08-08 09:13] LABS: Absolute Lymphocyte Count 1.51 X10^3/uL (0.83-4.51); Absolute Neutrophil Count 3.6 X10^3/uL (2.0-7.7); Basophil# 0.03 X10^3/uL; Basophil% 0.5 % (0-1); Eosinophil# 0.19 X10^3/uL; Eosinophils% 3.2 % (0-5); Hematocrit 44.9 % (37-47); Hemoglobin 15.3 g/dL (12.0-15.0); Lymphocyte # 1.51 X10^3/ul (0.83-4.51); Lymphocyte % 25.1 % (19-41); Mean Corp Hgb Conc 34.1 g/dL (32-36); Mean Corpuscular Hgb 32.8 pg (27.0-32.0); Mean Corpuscular Volume 96.4 fL (81-99); Mean Platelet Vol. 10.9 fl (6.2-12.0); Monocyte# 0.71 X10^3/uL; Monocyte% 11.8 % (0-10); NRBC Flagged by Analyzer 0 % (0-5); Neutrophil # 3.55 X10^3/uL (2.7-7.7); Neutrophil % 59.1 % (47-70); Platelet Count 238 K/mm3 (150-450); RBC Distribution Width CV 12.7 % (11.6-14.6); RBC Distribution Width SD 45.1 fl (35.1-43.9); Red Blood Count 4.66 M/mm3 (4.2-5.4)
[2022-08-08] MEDS: LORazepam 2 MG/ML Syringe 1 MG IV (09:14)
[2022-08-08] MEDS: 0.9% Normal Saline 1,000 ML 999 ML IV (09:16)
[2022-08-08 09:39] LABS: Anion Gap 5 (5-15); BUN 10 mg/dL (7-18); BUN/Creat Ratio 12.2 RATIO (10-20); Calcium,Total 9.2 mg/dL (8.5-10.1); Chloride 105 mmol/L (98-107); Creatinine, Serum 0.82 mg/dL (0.55-1.02); EST Glomerular Filtration Rate 75 mL/min (>60); Est Glom Filt Rate - Afr Amer 90 mL/min (>60); Estimated Creatinine Clearance 66.22 ml/min; Glucose 87 mg/dL (74-106); Sodium Level 138 mmol/L (136-145); Thyroid Stim Hormone (TSH) 0.03 uIU/mL (0.358-3.74); Troponin-I HS 10 pg/mL (3.0-54.0)
[2022-08-08 10:11] LABS: Bacteria 0 SEEN /hpf (None Seen); Color, Urine Yellow (Yellow); Glucose, Dipstick Normal (Normal); Ketone-Dipstick Negative (Negative); Leukocyte Esterase-Dipstick Negative /ul (Negative); Mucous, Urine 0 SEEN /hpf (<or=2+); Nitrite-Dipstick Negative (Negative); Occult Blood-Urine Negative /ul (Negative); Protein-Dipstick Negative (Negative); Red Blood Cells-Urine 0 SEEN /hpf (0-5); Specific Gravity, Urine 1.005 (1.002-1.030); Urine Bilirubin Dipstick Negative (Negative); Urine Clarity Clear (Clear); Urine Urobilinogen Normal (Normal); White Blood Cells 0 SEEN /hpf (0-5)
[2022-08-08 10:32] VITALS: BP 112/49; PULSE 71; RESP 20; O2SAT 97
[2022-08-08 10:59] VITALS: BP 106/49; BP 113/66; BP 134/61; PULSE 61; PULSE 64; PULSE 70
[2022-08-08 11:10] LABS: Squamous Epithelial Cells - UA 0-5 SEEN /hpf (5-10)
== END 2022-08-08 11:17 | disposition home or self-care (01) ==
PROVIDERS: Emergency Provider Emergency Medicine; PCP Family Medicine; Visit Provider Emergency Medicine
DX: R55 Syncope and collapse (principal); F41.1 Generalized anxiety disorder; F17.210 Nicotine dependence, cigarettes, uncomplicated
CPT/HCPCS: 80048; 81001; 84443; 84484; 85025; 93005; 96361; 96374; 99285; A4216

== ENCOUNTER → 2023-02-05 | Outpatient (CLI) | payer OTHER, MEDICAID, SELFPAY ==
--- NOTE | 2023-02-05 06:46 | CT_ITS ---
STUDY: LOW DOSE CT LUNG CANCER SCREENING REASON FOR EXAM: Female, 62 years old. Smoker. 47 pack-year history. COPD RADIATION DOSAGE (If Supplied By Facility): CTDIvol = ( 2.01 ) mGy, DLP = ( 70.22 ) mGycm TECHNIQUE: No contrast was administered. Low dose technique was utilized (average mAS-38 and kVp 120). 1.25 mm axial source images with a slice interval of 1.25-mm were reconstructed in lung windows. 2.5 mm axial source images with a slice interval of 2.5-mm were reconstructed in lung windows. 5.0 mm axial source images with a slice interval of 5.0-mm were reconstructed in soft tissue windows. COMPARISON: February 03, 2022. NODULES: Total lung nodules (excluding granulomas): 0 Emphysema: Marked emphysematous changes with bilateral apical pleural scarring. Endobronchial lesion: None Aorta: Atherosclerotic changes throughout aneurysm. CORONARY ARTERIES: Coronary artery calcification is not seen. Heart: Normal Pulmonary artery: Normal Mediastinal nodes: Normal Other chest and abdominal findings: Stable cyst in segment [address]/Low Dose CT Lung Screening IMPRESSION: Lung-RADS category 1 - Continue annual screening with LDCT in 12 months. IMPORTANT NOTES FOR USE: ACR Lung-RADS Version 1.1 Assessment Categories Release Date: 2018 Category: Coded 0-4 bases on nodule(s) with highest degree of suspicion. Negative screen is defined as categories 1 and 2; a positive screen is defined as categories 3 and 4. Category 3 and 4A nodules that are unchanged on interval CT should be coded as category 2, and individuals returned to screening in 12 months. Category 4X: Category 3 or 4 nodules with additional imaging findings that increase the suspicion of lung cancer, such as spiculation, GGN that doubles in size in 1 year, enlarged lymph notes, etc. Category Modifiers: S (significant finding unrelated to lung cancer) Electronically Signed: Jarod Judd DO at 16:45 EST Reading Location ID and State: [address] [place] [address] Tel [phone], Service support ,
== END | disposition home or self-care (01) ==
LOC: CT 06:43
PROVIDERS: PCP Family Medicine; Referring Provider Nurse Practitioner Acute Care; Visit Provider Nurse Practitioner Acute Care
DX: F17.210 Nicotine dependence, cigarettes, uncomplicated (principal)
CPT/HCPCS: 71271

== ENCOUNTER 2023-04-21 16:04 | Emergency (ER) | payer OTHER, MEDICAID, SELFPAY ==
[2023-04-21 16:05] VITALS: BP 131/56; PULSE 71; RESP 18; TEMP 36.5; O2SAT 99; BMI 25.8
--- NOTE | 2023-04-21 16:19 | EKG12_ITS ---
Test Reason : CP Blood Pressure : / mmHG Vent. Rate : 067 BPM Atrial Rate : 067 BPM P-R Int : 186 ms QRS Dur : 076 ms QT Int : 414 ms P-R-T Axes : 070 059 064 degrees QTc Int : 437 ms Normal sinus rhythm Normal ECG Confirmed by DAQUAN SCHOFIELD, [place] ([id number]), assistant editor VICTOR HUGO BAILEY ([id number]) on 04/22/2023 9:07:47 AM Referred By: Confirmed By:LA BUTT MD
--- NOTE | 2023-04-21 16:20 | ED.VIS.CHEST ---
HPI History of Present Illness Chief Complaint: Chest Pain Narrative Narrative: Presents with cough shortness of breath and some pain across her mid back. She states yesterday she started with some coughing. She has noticed some increased wheezing. She does have a history of COPD. She also states she is starting to bring up some sputum that is light white may be weathers in color but no blood. Today she was lifting an item at work she was lifting and rotating the item in front of her and she got pain across her mid back. When she was lifting it hurt a lot. It is still sore but not as sore. Is not tearing or ripping. Its not severe. She states it is just sore it is hard to describe whether sharp dull achy or tight. She was concerned because she was told that she may have an aneurysm in her chest. She does not know anything more about this. I reviewed her CTs of her chest that were done this year. She has 3 of them done. The most recent one mentioned atherosclerosis throughout her aneurysm. But I think it should say atherosclerosis throughout her aorta. Because the other 2 CAT scans do not show an aneurysm. They say the aorta is normal. I think this was a typo on her reading. Patient has no recent travel surgery immobilization personal or family history of DVT or PE. She has never had heart disease. She is a smoker and was counseled to quit. But she has no family history of heart disease high cholesterol high blood pressure or diabetes. [facility] Medical History (Updated 04/21/23 @ 18:[address] Roly Olguin MD) Acute respiratory failure with hypoxia Cervical cancer Thyroid disorder Viral pneumonia Wheezing Home Medications levothyroxine 137 mcg tablet 137 mcg PO DAILY thyroid 12/30/20 [History Last Taken Unknown] montelukast 10 mg tablet 10 mg PO QPM #90 tabs 05/25/22 [Rx Last Taken Unknown] lorazepam 0.5 mg tablet (Ativan) 0.5 mg PO TID PRN anxiety #10 tabs 08/08/22 [Rx Last Taken Unknown] budesonide-formoterol HFA 160 mcg-4.5 mcg/actuation aerosol inhaler (Symbicort) 2 puff inhalation BID #1 ea 01/11/23 [Rx Last Taken Unknown] albuterol sulfate 90 mcg/actuation aerosol inhaler 1 - 2 puff inhalation Q4H PRN PRN Shortness Of Breath ##1 02/08/23 [Rx Last Taken Unknown] doxycycline monohydrate 100 mg capsule 100 mg PO BID #14 CAPSULES 04/21/23 [Rx Last Taken Unknown] prednisone 20 mg tablet 60 mg PO DAILY #15 TABLETS 04/21/23 [Rx Last Taken Unknown] Allergy/AdvReac Type Severity Reaction Status Date / Time No Known Allergies Allergy Verified 04/21/23 16:06 Family History Mother Cancer Lung Surgical History No pertinent past surgical history Social History Smoking Status: Current some day smoker tobacco type: cigarettes Tobacco: How many years used: 48 alcohol intake: current alcohol intake frequency: 0-2 drinks per day Alcohol type: beer ROS ROS ED ROS Narrative A complete review of systems was performed and is negative except as documented in the history of present illness. Some specific details below. Constitutional: No recent fevers or chills. No malaise or myalgias EYE: No discharge, visual complaints, or pain. ENT: No difficulty swallowing. No swelling. No pain. No reflux symptoms. CV: See history of present illness. She is not having pain in the front of her chest is just a soreness across her back. Respiratory: See history of present illness. GI: No abdominal pain. No nausea vomiting diarrhea. No blood in stool. : No frequency dysuria or hematuria. Musculoskeletal: No recent trauma. No pains. No swelling. Skin: No rash. Nondiaphoretic. Neuro: No weakness or numbness. Not syncopal or presyncopal at any times. Endocrine: No polyuria or polydipsia. EXAM Physical Exam Narrative Exam Narrative: CONSTITUTIONAL: Patient is nontoxic in appearance. The patient looks comfortable. Work of breathing looks normal. HEENT: No notable trauma. Mucous membranes moist. No sinus tenderness. No indication of pain with swallowing. EYES: No conjunctival injection. No proptosis. NECK:No JVD. No stridor. CARDIOVASCULAR: Regular rate. Regular rhythm. No notable murmur. No JVD. Peripheral pulses are equal and normal x4. RESPIRATORY: No respiratory distress. Breathing is unlabored. No wheezes with easy breathing but she does have wheezes with forced expiration.. No rhonchi. No rales. No pain with a deep breath. Mild chest wall tenderness. No rash swelling or skin changes. GASTROINTESTINAL: Not distended. Bowel sounds are normal. No tenderness. No guarding. No rebound. No palpable mass. No bruit is heard. GENITOURINARY: No tenderness over the bladder. No CVA tenderness. MUSCULOSKELETAL: Atraumatic. No peripheral edema. No cord. No tenderness along the deep venous system. No asymmetry. No distended veins. Pulses are normal. NEUROLOGICAL: Patient is alert and appropriate. No focal deficit noted. SKIN: No noted rashes. No diaphoresis. PSYCHIATRIC: Patient is calm. Mood is appropriate. Const Vital Signs: 04/21/23 16:05 04/21/23 16:25 04/21/23 16:33 Temperature 97.7 F L Temperature Source Temporal Pulse Rate 71 65 64 Respiratory Rate 18 12 16 Respiratory Pattern Normal Blood Pressure 131/56 H Blood Pressure Mean 81 Pulse Ox 99 95 Oxygen Delivery Method Room Air Room Air MDM MDM MDM Narrative Medical decision making narrative: My independent interpretation of her single view AP chest x-ray shows no acute process. No infiltrate. Mediastinum looks normal. Paravertebral aortic stripe is normal. Final reading by radiology is normal x-ray examination of the chest. Patient CBC shows no marked abnormalities. She has minimally low white count. Her electrolytes showed no significant abnormalities Her troponin is normal at 14 despite symptoms all day. Her D-dimer is negative. Since her prior CTs do not show aneurysm, she is not hypoxic tachycardic or tachypneic and she has a negative D-dimer with no leg pain swelling or history of DVT or PE I do not think she needs CT angiogram of the chest. I think with her cough change in character or quantity of sputum wheezing she is initiating a COPD exacerbation. She states she feels as though she is coming down with an illness. She is feels like she is getting congested. We will get her on meds for this. We discussed reasons to return. She does have soreness across her back. I think this is from a combination of the heavy item that she lifted and rotated at work along with likely increased coughing. I am not seeing indication of dissection pulmonary embolus or acute coronary syndrome. No indication of pneumothorax or other acute process. Lab Data Attestation: I reviewed the patient's lab results. Labs: Laboratory Results - last 24 hr 04/21/23 04/21/23 04/21/23 16:17 16:17 16:17 WBC 4.0 L RBC 4.32 Hgb 13.9 Hct 42.5 MCV 98.4 MCH 32.2 H MCHC 32.7 RDW Std Deviation 46.9 H RDW Coeff of Stewart 12.9 Plt Count 218 MPV 10.2 Immature Gran % (Auto) 0.000 Neut % (Auto) 45.8 L Lymph % (Auto) 35.7 [place] % (Auto) 14.4 H Eos % (Auto) 3.3 Baso % (Auto) 0.8 Absolute Neuts (auto) 1.8 L Absolute Lymphs (auto) 1.41 Nucleated RBC % 0 D-Dimer Quant (PE/DVT) 0.31 Sodium 141 Potassium 3.8 Chloride 108 H Carbon Dioxide 29.0 Anion Gap 4 L BUN 11 Creatinine 0.88 Estim Creat Clear Calc 59.98 Est GFR (MDRD) Af Amer 83 Est GFR (MDRD) Non-Af 69 BUN/Creatinine Ratio 12.5 Glucose 139 H Calcium 9.0 Troponin I High Sens 14 Radiography Diagnostic Testing: Clinical Impression(s) from Imaging Studies Chest X-Ray 04/21/23 17:03 IMPRESSION: Normal x-ray examination of the chest. Electronically Signed: Bernard Richards MD at 17:23 EDT , Discharge Plan Triage Chief Complaint: Chest Pain ED Provider: Roly Olguin Dx/Rx/DC Orders Clinical Impression: Asthma exacerbation in COPD, Back pain Instructions: ED COPD Flare Prescriptions: New prednisone 20 mg tablet 60 mg PO DAILY Qty: 15 0RF doxycycline monohydrate 100 mg capsule 100 mg PO BID Qty: 14 0RF No Action albuterol sulfate 90 mcg/actuation HFA aerosol inhaler 1 - 2 puff INHALATION Q4H PRN PRN (Reason: Shortness Of Breath) Qty: 1 11RF levothyroxine 137 MCG tablet 137 mcg PO DAILY lorazepam [Ativan] 0.5 mg tablet 0.5 mg PO TID PRN (Reason: anxiety) Qty: 10 0RF montelukast 10 mg tablet 10 mg PO QPM Qty: 90 3RF budesonide-formoterol [Symbicort] 160-4.5 mcg/actuation HFA aerosol inhaler 2 puff INHALATION BID Qty: 1 6RF Rx Instructions: administer with spacer, rinse mouth after each use Primary Care Provider: Huseyin Deleon Referrals: Huseyin Deleon MD [Primary Care Provider] - 3-5 Days if not improving Disposition Disposition: Home, Self Care
[2023-04-21 16:25] VITALS: PULSE 65; RESP 12; O2SAT 95
[2023-04-21] MEDS: Ipratropium/Albuterol Sulfate 3 ML AMPUL.NEB INHALATION (16:27)
[2023-04-21 16:30] LABS: Absolute Lymphocyte Count 1.41 X10^3/uL (0.83-4.51); Absolute Neutrophil Count 1.8 X10^3/uL (2.0-7.7); Basophil# 0.03 X10^3/uL; Basophil% 0.8 % (0-1); Eosinophil# 0.13 X10^3/uL; Eosinophils% 3.3 % (0-5); Hematocrit 42.5 % (37-47); Hemoglobin 13.9 g/dL (12.0-15.0); Lymphocyte # 1.41 X10^3/ul (0.83-4.51); Lymphocyte % 35.7 % (19-41); Mean Corp Hgb Conc 32.7 g/dL (32-36); Mean Corpuscular Hgb 32.2 pg (27.0-32.0); Mean Corpuscular Volume 98.4 fL (81-99); Mean Platelet Vol. 10.2 fl (6.2-12.0); Monocyte# 0.57 X10^3/uL; Monocyte% 14.4 % (0-10); NRBC Flagged by Analyzer 0 % (0-5); Neutrophil # 1.81 X10^3/uL (2.7-7.7); Neutrophil % 45.8 % (47-70); Platelet Count 218 K/mm3 (150-450); RBC Distribution Width CV 12.9 % (11.6-14.6); RBC Distribution Width SD 46.9 fl (35.1-43.9); Red Blood Count 4.32 M/mm3 (4.2-5.4)
[2023-04-21 16:33] VITALS: PULSE 64; RESP 16
[2023-04-21 16:42] LABS: D-Dimer Quantitative (DVT/PE) 0.31 FEU/ug/m (0.27-0.49)
[2023-04-21 16:47] LABS: Anion Gap 4 (5-15); BUN 11 mg/dL (7-18); BUN/Creat Ratio 12.5 RATIO (10-20); Chloride 108 mmol/L (98-107); Creatinine, Serum 0.88 mg/dL (0.55-1.02); EST Glomerular Filtration Rate 69 mL/min (>60); Est Glom Filt Rate - Afr Amer 83 mL/min (>60); Estimated Creatinine Clearance 59.98 ml/min; Glucose 139 mg/dL (74-106); Potassium 3.8 mmol/L (3.5-5.1); Sodium Level 141 mmol/L (136-145); Troponin-I HS 14 pg/mL (3.0-54.0)
--- NOTE | 2023-04-21 17:03 | RAD_ITS ---
STUDY: X-RAY CHEST REASON FOR EXAM: Female, 62 years old. cough TECHNIQUE: Single AP portable view of the chest. COMPARISON: 01/20/2021. FINDINGS: The lungs are clear and expanded. There is no demonstrated pleural abnormality. Normal size heart. Normal mediastinum and chacorta. Normal visualized pulmonary arteries. Normal visualized aortic arch and descending thoracic aorta. Normal visualized thoracic spine. Normal visualized ribs, clavicles, and shoulders. There is no demonstrated abnormality of the visualized soft tissue structures of the upper abdomen. RAD/Chest 1 View (Portable) IMPRESSION: Normal x-ray examination of the chest. Electronically Signed: Bernard Richards MD at 17:23 EDT ,
[2023-04-21] MEDS: Ketorolac 15 MG/ML Vial IV (18:10)
[2023-04-21] MEDS: predniSONE 20 MG Tablet 60 MG PO (18:10)
[2023-04-21] MEDS: Doxycycline 100 MG CAPSULE PO (18:10)
[2023-04-21 18:15] VITALS: BP 114/67; PULSE 94; RESP 13; O2SAT 63
== END 2023-04-21 18:21 | disposition home or self-care (01) ==
PROVIDERS: Emergency Provider Emergency Medicine; PCP Family Medicine; Visit Provider Emergency Medicine
DX: J44.1 Chronic obstructive pulmonary disease with (acute) exacerbation (principal); F17.210 Nicotine dependence, cigarettes, uncomplicated; M54.9 Dorsalgia, unspecified; E07.9 Disorder of thyroid, unspecified; Z79.899 Other long term (current) drug therapy; Z79.51 Long term (current) use of inhaled steroids; Z85.89 Personal history of malignant neoplasm of other organs and systems; X58.XXXA Exposure to other specified factors, initial encounter
CPT/HCPCS: 71045; 80048; 84484; 85025; 85379; 87428; 93005; 94640; 96374; 99285; A4216

== ENCOUNTER → 2023-07-12 | Outpatient (CLI) | payer OTHER, MEDICAID, SELFPAY ==
--- NOTE | 2023-07-13 09:43 | PFT ---
INTRODUCTION: The patient is a 62-year-old female who presents for pulmonary function studies secondary to a diagnosis of shortness of breath. Respiratory therapy reported good patient effort. Bronchodilators were used during testing. INTERPRETATION: Forced expiration spirometry demonstrates the presence of a mild large airways obstructive ventilatory defect. There was no significant response to aerosolized bronchodilators. Spirograms are of good quality but do not plateau indicating slow emptying of the lungs. Body plethysmography was performed and revealed lung volumes to be within normal limits. Diffusing capacity by single breath CO is within normal limits. IMPRESSION: Irreversible mild large airways obstructive ventilatory defect.
== END | disposition home or self-care (01) ==
LOC: PSN 06:54
PROVIDERS: PCP Family Medicine; Referring Provider Nurse Practitioner Acute Care; Visit Provider Nurse Practitioner Acute Care
DX: R06.02 Shortness of breath (principal)
CPT/HCPCS: 94060; 94726; 94729

== ENCOUNTER → 2024-02-15 | Outpatient (CLI) | payer MEDICAID, SELFPAY ==
--- NOTE | 2024-02-15 15:47 | CT_ITS ---
STUDY: LOW DOSE CT LUNG CANCER SCREENING REASON FOR EXAM: Female, 63 years old. Smoker. Patient smoked 1 pack per day for 50 years. COPD. RADIATION DOSAGE (If Supplied By Facility): CTDIvol = ( 1.59 ) mGy, DLP = ( 58.18 ) mGycm TECHNIQUE: No contrast was administered. Low dose technique was utilized (average mAS-38 and kVp 120). 1.25 mm axial source images with a slice interval of 1.25-mm were reconstructed in lung windows. 2.5 mm axial source images with a slice interval of 2.5-mm were reconstructed in lung windows. 5.0 mm axial source images with a slice interval of 5.0-mm were reconstructed in soft tissue windows. COMPARISON: Comparison is made with prior study dated February 05, 2023. NODULES: No suspicious nodule is seen. Emphysema: Hyperinflation. Emphysematous changes. Stable heterogeneous scarring in the right lung apex. Minimal scarring along the medial aspect of the right middle lobe. Endobronchial lesion: None Aorta: Atherosclerotic plaque formation. CORONARY ARTERIES: Coronary artery calcification is not seen. Heart: Unremarkable. Pulmonary artery: Unremarkable Mediastinal nodes: Unremarkable Other chest and abdominal findings: Stable cyst in the anterior aspect of the right lobe of the liver. CT/Low Dose CT Lung Screening IMPRESSION: Lung-RADS category 2 - Continue annual screening with LDCT in 12 months. IMPORTANT NOTES FOR USE: ACR Lung-RADS Version 1.1 Assessment Categories Release Date: 2018 Category: Coded 0-4 bases on nodule(s) with highest degree of suspicion. Negative screen is defined as categories 1 and 2; a positive screen is defined as categories 3 and 4. Category 3 and 4A nodules that are unchanged on interval CT should be coded as category 2, and individuals returned to screening in 12 months. Category 4X: Category 3 or 4 nodules with additional imaging findings that increase the suspicion of lung cancer, such as spiculation, GGN that doubles in size in 1 year, enlarged lymph notes, etc. Category Modifiers: S (significant finding unrelated to lung cancer) Electronically Signed: Saurabh Zuniga MD at 8:53 EDT ,
== END | disposition home or self-care (01) ==
LOC: CT 15:46
PROVIDERS: PCP Family Medicine; Referring Provider Nurse Practitioner Acute Care; Visit Provider Nurse Practitioner Acute Care
DX: F17.210 Nicotine dependence, cigarettes, uncomplicated (principal)
CPT/HCPCS: 71271

== ENCOUNTER → 2025-02-15 | Outpatient (CLI) | payer MEDICARE, OTHER, SELFPAY | END | disposition home or self-care (01) | LOC: PSN 08:35 | PROVIDERS: PCP Family Medicine; Referring Provider Nurse Practitioner Acute Care; Visit Provider Nurse Practitioner Acute Care | DX: J44.9 Chronic obstructive pulmonary disease, unspecified (principal) | CPT/HCPCS: 94060; 94726; 94729 ==

== ENCOUNTER → 2025-02-24 | Outpatient (CLI) | payer MEDICARE, OTHER, SELFPAY ==
--- NOTE | 2025-02-24 08:41 | CT_ITS ---
PROCEDURE: LOW DOSE CT LUNG SCREENING 02/24/2025 REASON FOR EXAM: SMOKER TECHNIQUE: Low Dose CT Lung screening without contrast. Coronal and Sagittal reconstruction series were provided. One or more dose reduction techniques were used (e.g., Automated exposure control, adjustment of the mA and/or kV according to patient size, use of iterative reconstruction technique). REFERENCE LINK: [email or web address] Lung-RADS COMPARISON: 02/15/2024 FINDINGS: Lungs/Pleura:Emphysematous disease is present. There is a stable punctate pulmonary nodule in the right upper lobe measuring 2.4 mm.No pleural effusion or pneumothorax. Cardiovascular:The heart is normal in size.No coronary artery calcifications are identified.The aorta and pulmonary arteries are unremarkable. Pericardium:No effusion. Mediastinum:Unremarkable. Lymph nodes:No lymph node enlargement identified on this noncontrast CT. Bones:No acute osseous abnormality.[id number] multilevel degenerative changes are present. Soft tissues:Unremarkable. Upper abdomen:Hepatic cysts are again noted. CT/Low Dose CT Lung Screening IMPRESSION: 1. Stable punctate pulmonary nodule. Lung-RADS category 2: Benign. 2. Emphysematous disease. Reading Location: [facility]
== END | disposition home or self-care (01) ==
PROVIDERS: PCP Family Medicine; Referring Provider Nurse Practitioner Acute Care; Visit Provider Nurse Practitioner Acute Care
DX: Z12.2 Encounter for screening for malignant neoplasm of respiratory organs (principal); F17.210 Nicotine dependence, cigarettes, uncomplicated
CPT/HCPCS: 71271

== ENCOUNTER → 2025-03-08 | Outpatient (CLI) | payer MEDICARE, OTHER, SELFPAY ==
[2025-03-08 13:45] VITALS: PULSE 101; PULSE 72; PULSE 78; PULSE 90; PULSE 92; PULSE 95; O2SAT 96; O2SAT 98; O2SAT 99
--- NOTE | 2025-03-12 11:24 | PCM.PSN.6M ---
PSN 6 Minute Walk Test 6 Minute Walk Test 6 Minute Walk Test: 6 Minute Walk Test PSN:6-Minute Walk Test Start: 03/08/25 14:04 Freq: Status: Active Protocol: [id number] Document 03/08/25 13:45 AEH (Rec: 03/08/25 14:08 AEH [id number]) 6 Minute Walk Test Date Performed 03/08/25 Time Performed 13:45 Height 4 ft 11 in Weight: 140 lb Weight in Pounds 140.[address]: Ami Assistive device None used: Pre-test Oxygen Delivery Room Air Method Pulse Ox (%) 98 Pulse Rate (60-100 72 beats/min) Dyspnea Masha Scale ( 0 0-10) Exertion Masha Scale 6 (6-20) 1st minute Oxygen Delivery Room Air Method Pulse Ox (%) 98 Pulse Rate (60-100 90 beats/min) 2nd minute Oxygen Delivery Room Air Method Pulse Ox (%) 98 Pulse Rate (60-100 95 beats/min) 3rd minute Oxygen Delivery Room Air Method Pulse Ox (%) 96 Pulse Rate (60-100 92 beats/min) 4th minute Oxygen Delivery Room Air Method Pulse Ox (%) 99 Pulse Rate (60-100 90 beats/min) 5th minute Oxygen Delivery Room Air Method Pulse Ox (%) 99 Pulse Rate (60-100 95 beats/min) 6th minute Oxygen Delivery Room Air Method Pulse Ox (%) 98 Pulse Rate (60-100 101 H beats/min) Dyspnea Masha Scale ( 0 0-10) Exertion Masha Scale 11 (6-20) Post-test Oxygen Delivery Room Air Method Pulse Ox (%) 99 Pulse Rate (60-100 78 beats/min) Full Laps Walked 14 Partial Lap, Number 5 of Tiles Walked Total Distance 831 Walked (ft) Interpretation Interpretation: The patient ambulated 831 feet over the course of 6 minutes beginning on room air without assistive devices. Pretesting oxygen saturation was noted to be 98% on room air. With ambulation, the ashley oxygen saturation was 96%. There was no significant exertional oxygen desaturation. Recommendations Recommendations: There is no indication for the use of supplemental oxygen at this time.
== END | disposition home or self-care (01) ==
LOC: PSN 13:42
PROVIDERS: PCP Family Medicine; Referring Provider Nurse Practitioner Acute Care; Visit Provider Nurse Practitioner Acute Care
DX: J44.9 Chronic obstructive pulmonary disease, unspecified (principal)
CPT/HCPCS: 94618